=== PATIENT | male | born 1940 | race Caucasian/White ===

== ENCOUNTER 2019-02-02 18:44 | Inpatient (IN) | payer MEDICARE ==
[2019-02-02] MEDS ORDERED: SODIUM CHLORIDE 0.9% 1,000 ML IV STA (19:09)
[2019-02-02] MEDS ORDERED: FUROSEMIDE 10 MG/ML 4 ML VIAL IV STA (19:10)
[2019-02-02] MEDS ORDERED: IPRATROPIUM-ALBUTEROL 3 ML NEB INHALATION STA ×2 (19:10→20:53)
--- NOTE | 2019-02-02 19:12 | ED ---
General Adult HPI - General Chief complaint: Shortness of Breath Stated complaint: ELIU Time Seen by Provider: 02/02/19 18:56 Source: EMS, RN notes reviewed, old records reviewed Limitations: physical limitation - History of Present Illness Initial comments: Patient is a 78-year-old male who presents emergency department today worsening dyspnea for the past 2 days. He states he's had some lower extremity swelling. He states is difficult for him to lay down completely. He reports that he is currently on budesonide, takes multiple breathing treatments a day. His marketing strategy lead is Dr. Garay. 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 Patient states that he has not been taking his Lasix regularly as it does cause him To urinate more frequently. Patient states that he has had some worsening coughing. He denies any associated chest pain. Ignacio nt reports that he does wear 2 L of oxygen all times. - Related Data Allergies Allergy/AdvReac Type Severity Reaction Status Date / Time No Known Allergies Allergy Verified 02/02/19 18:57 Review of Systems ROS Statement: Those systems with pertinent positive or pertinent negative responses have been documented in the HPI. ROS Other: All systems not noted in ROS Statement are negative. Past Medical History Past Medical History: Coronary Artery Disease (CAD), COPD, Hypertension Additional Past Medical History / Comment(s): chf History of Any Multi-Drug Resistant Organisms: None Reported Past Surgical History: No Surgical Hx Reported Past Psychological History: No Psychological Hx Reported Smoking Status: Former smoker Past Alcohol Use History: None Reported Past Drug Use History: None Reported General Exam - General Exam Comments Initial Comments: This is a 70-year-old male. Alert and oriented. No significant distress. Limitations: physical limitation General appearance: alert, in no apparent distress Head exam: Present: atraumatic, normocephalic, normal inspection Eye exam: Present: normal appearance, PERRL, EOMI. Absent: scleral icterus, conjunctival injection, periorbital swelling ENT exam: Present: normal exam, normal oropharynx, mucous membranes moist Neck exam: Present: normal inspection. Absent: tenderness, meningismus, lymphadenopathy Respiratory exam: Present: wheezes, decreased breath sounds, other (Decreased lung sounds bilaterally.). Absent: normal lung sounds bilaterally, respiratory distress, rales, rhonchi, stridor Cardiovascular Exam: Present: regular rate, normal rhythm, normal heart sounds. Absent: systolic murmur, diastolic murmur, rubs, gallop, clicks GI/Abdominal exam: Present: soft, normal bowel sounds. Absent: distended, tenderness, guarding, rebound, rigid Extremities exam: Present: normal inspection, full ROM, normal capillary refill. Absent: tenderness, pedal edema, joint swelling, calf tenderness Back exam: Present: normal inspection Neurological exam: Present: alert, oriented X3, CN II-XII intact Psychiatric exam: Present: normal affect, normal mood Course Vital Signs 02/02/19 02/02/19 02/02/19 18:47 20:21 20:27 Pulse Rate 90 95 89 Respiratory 20 Rate Blood Pressure 150/76 O2 Sat by Pulse 98 Oximetry 02/02/19 21:33 Pulse Rate 103 H Respiratory Rate Blood Pressure O2 Sat by Pulse Oximetry - Reevaluation(s) Reevaluation #1: 02/02/19 21:40 After initial breathing treatment patient's has decreased lung sounds but it continues to have wheezing. EKG Findings - EKG Comments: EKG Findings:: EKG shows sinus tachycardia, frequent and consecutive PVCs. Nonspecific ST and normality. Abnormal EKG. Ventricular rate of 101. Pulse 122. Respirations 86 segs. QT QTc is 372/4 and she most seconds. Medical Decision Making - Medical Decision Making This is a 70-year-old male with history of COPD. He presents with worsening shortness of breath for the past 2 days. Patient had significant wheezing on exam diminished lung sounds. Given a neb treatment, as well as IV site Medrol via EMS. Patient at this time has given subsequent treatment, does have increased lung sounds continues to have wheezing. He was given Lasix due to bilateral lower extremity edema. Troponin and BNP are relatively unremarkable. Chest x-ray shows evidence of COPD. Patient does see Dr. Garay. I discussed that he would like to give the Patient further breathing treatments and made him for worsening shortness of breath with COPD exacerbation. will admit the Patient this time after I discussed case with Dr. dela cruz\. He discussed case with Dr. ELLISON. - Lab Data Result diagrams: 02/02/19 19:00 02/02/19 19:00 Lab Results 02/02/19 02/02/19 02/02/19 Range/Units 19:00 19:00 19:00 WBC 5.3 (3.8-10.6) k/uL RBC 4.60 (4.30-5.90) m/uL Hgb 13.8 (13.0-17.5) gm/dL Hct 43.9 (39.0-53.0) % MCV 95.5 (80.0-100.0) fL MCH 30.0 (25.0-35.0) pg MCHC 31.5 (31.0-37.0) g/dL RDW 14.2 (11.5-15.5) % Plt Count 175 (150-450) k/uL Neutrophils % 70 % Lymphocytes % 17 % Monocytes % 8 % Eosinophils % 2 % Basophils % 1 % Neutrophils # 3.7 (1.3-7.7) k/uL Lymphocytes # 0.9 L (1.0-4.8) k/uL Monocytes # 0.4 (0-1.0) k/uL Eosinophils # 0.1 (0-0.7) k/uL Basophils # 0.0 (0-0.2) k/uL Hypochromasia Slight PT (9.0-12.0) sec INR (<1.2) APTT (22.0-30.0) sec Sodium 143 (137-145) mmol/L Potassium 4.5 (3.5-5.1) mmol/L Chloride 93 L (98-107) mmol/L Carbon Dioxide 45 H* (22-30) mmol/L Anion Gap 5 mmol/L BUN 20 (9-20) mg/dL Creatinine 0.45 L (0.66-1.25) mg/dL Est GFR (CKD-EPI)AfAm >90 (>60 ml/min/1.73 sqM) Est GFR (CKD-EPI)NonAf >90 (>60 ml/min/1.73 sqM) Glucose 115 H (74-99) mg/dL Calcium 8.8 (8.4-10.2) mg/dL Magnesium 1.9 (1.6-2.3) mg/dL Total Bilirubin 0.9 (0.2-1.3) mg/dL AST 31 (17-59) U/L ALT 36 (21-72) U/L Alkaline Phosphatase 91 (38-126) U/L Troponin I (0.000-0.034) ng/mL NT-Pro-B Natriuret Pep 304 pg/mL Total Protein 6.9 (6.3-8.2) g/dL Albumin 4.1 (3.5-5.0) g/dL Urine Color Urine Appearance (Clear) Urine pH (5.0-8.0) Ur Specific [place] (1.001-1.035) Urine Protein (Negative) Urine Glucose (UA) (Negative) Urine Ketones (Negative) Urine Blood (Negative) Urine Nitrite (Negative) Urine Bilirubin (Negative) Urine Urobilinogen (<2.0) mg/dL Ur Leukocyte Esterase (Negative) 02/02/19 02/02/19 02/02/19 Range/Units 19:00 19:00 20:50 WBC (3.8-10.6) k/uL RBC (4.30-5.90) m/uL Hgb (13.0-17.5) gm/dL Hct (39.0-53.0) % MCV (80.0-100.0) fL MCH (25.0-35.0) pg MCHC (31.0-37.0) g/dL RDW (11.5-15.5) % Plt Count (150-450) k/uL Neutrophils % % Lymphocytes % % Monocytes % % Eosinophils % % Basophils % % Neutrophils # (1.3-7.7) k/uL Lymphocytes # (1.0-4.8) k/uL Monocytes # (0-1.0) k/uL Eosinophils # (0-0.7) k/uL Basophils # (0-0.2) k/uL Hypochromasia PT 9.8 (9.0-12.0) sec INR 0.9 (<1.2) APTT 24.8 (22.0-30.0) sec Sodium (137-145) mmol/L Potassium (3.5-5.1) mmol/L Chloride (98-107) mmol/L Carbon Dioxide (22-30) mmol/L Anion Gap mmol/L BUN (9-20) mg/dL Creatinine (0.66-1.25) mg/dL Est GFR (CKD-EPI)AfAm (>60 ml/min/1.73 sqM) Est GFR (CKD-EPI)NonAf (>60 ml/min/1.73 sqM) Glucose (74-99) mg/dL Calcium (8.4-10.2) mg/dL Magnesium (1.6-2.3) mg/dL Total Bilirubin (0.2-1.3) mg/dL AST (17-59) U/L ALT (21-72) U/L Alkaline Phosphatase (38-126) U/L Troponin I <0.012 (0.000-0.034) ng/mL NT-Pro-B Natriuret Pep pg/mL Total Protein (6.3-8.2) g/dL Albumin (3.5-5.0) g/dL Urine Color Yellow Urine Appearance Clear (Clear) Urine pH 5.5 (5.0-8.0) Ur Specific [place] 1.013 (1.001-1.035) Urine Protein Trace H (Negative) Urine Glucose (UA) Negative (Negative) Urine Ketones 2+ H (Negative) Urine Blood Negative (Negative) Urine Nitrite Negative (Negative) Urine Bilirubin Negative (Negative) Urine Urobilinogen <2.0 (<2.0) mg/dL Ur Leukocyte Esterase Negative (Negative) - Radiology Data Radiology results: report reviewed Chest x-ray shows evidence of COPD. Disposition Clinical Impression: COPD exacerbation Disposition: [facility] Condition: Stable Is patient prescribed a controlled substance at d/c from ED?: No Referrals: Nonstaff,Physician [REFERRING] - 1-2 days Time of Disposition: 21:42
[2019-02-02 19:23] LABS: Basophils % (A) 1 %; Eosinophils # (A) 0.1 k/uL (0-0.7); Eosinophils % (A) 2 %; HCT 43.9 % (39.0-53.0); HGB 13.8 gm/dL (13.0-17.5); Hypochromasia Slight; Lymphocytes # (A) 0.9 k/uL (1.0-4.8); Lymphocytes % (A) 17 %; MCHC 31.5 g/dL (31.0-37.0); MCV 95.5 fL (80.0-100.0); Mean Platelet Volume 8.2; Monocytes # (A) 0.4 k/uL (0-1.0); Monocytes % (A) 8 %; Neutrophils # (A) 3.7 k/uL (1.3-7.7); Neutrophils % (A) 70 %; Platelet Count 175 k/uL (150-450); RDW 14.2 % (11.5-15.5); WBC 5.3 k/uL (3.8-10.6)
[2019-02-02 19:31] LABS: ALT 36 U/L (21-72); AST 31 U/L (17-59); African American GFR (CKD) >90 (>60 ml/min/1.73 sqM); Albumin 4.1 g/dL (3.5-5.0); Alkaline Phosphatase 91 U/L (38-126); Blood Urea Nitrogen 20 mg/dL (9-20); Calcium 8.8 mg/dL (8.4-10.2); Chloride 93 mmol/L (98-107); Glucose 115 mg/dL (74-99); Magnesium 1.9 mg/dL (1.6-2.3); Potassium 4.5 mmol/L (3.5-5.1); Sodium 143 mmol/L (137-145); Total Bilirubin 0.9 mg/dL (0.2-1.3); Total Protein 6.9 g/dL (6.3-8.2)
[2019-02-02 19:34] LABS: INR 0.9 (<1.2); Partial Thromboplastin Time 24.8 sec (22.0-30.0); Prothrombin Time 9.8 sec (9.0-12.0)
[2019-02-02 19:37] LABS: Anion Gap 5 mmol/L
[2019-02-02 19:41] LABS: Carbon Dioxide 45 mmol/L (22-30)
[2019-02-02] MEDS ORDERED: methylPREDNISolone SOD SUCCI 125 MG/2 ML VIAL IV STA (20:09)
--- NOTE | 2019-02-02 20:49 | XR ---
EXAMINATION TYPE: XR chest 2V DATE OF EXAM: 02/02/2019 COMPARISON: None INDICATION: Chest pain TECHNIQUE: Frontal and lateral views of the chest are obtained. FINDINGS: The heart size is normal. The pulmonary vasculature is normal. The lungs are clear. Hyperinflation flattening the diaphragms compatible COPD. IMPRESSION: 1. COPD
[2019-02-02] MEDS ORDERED: ALBUTEROL NEBULIZED 2.5 MG/3 ML INHALATION STA (20:53)
[2019-02-02 21:05] LABS: Appearance,Urine Clear (Clear); Bilirubin,Urine Negative (Negative); Blood,Urine Negative (Negative); Color,Urine Yellow; Glucose,Urine (UA) Negative (Negative); Ketones,Urine 2+ (Negative); Leukocyte Esterase,Urine Negative (Negative); Nitrite,Urine Negative (Negative); PH, Urine 5.5 (5.0-8.0); Protein,Urine Trace (Negative); Specific Gravity,Urine 1.013 (1.001-1.035); Urobilinogen,Urine <2.0 mg/dL (<2.0)
[2019-02-02] MEDS ORDERED: IPRATROPIUM-ALBUTEROL 3 ML NEB INHALATION PRN (21:42)
--- NOTE | 2019-02-02 22:05 | P.HPIM ---
History of Present Illness H&P Date: 02/02/19 The patient is a 78 yo M w/ a PMH of COPD, HTN, CHF (unspecified type), and chronic hypoxic resp failure on continuous 2L home oxygen presented to the ED for 3 days of gradually worsening SOB. Patient reports compliance with his nebulizer treatments at home with continued shortness of breath. He endorsed some LE edema due to non-compliance with his lasix. He also endorsed some orthopnea, denied PND. Endorsed mild clear cough. Denied chest pain, nausea, vomiting. Denied abdominal pain, fever, chills, or diarrhea. Denied sore throat. He underwent an extensive evaluation in the ED w/ CXR consistent with COPD. EKG revealed sinus tachycardia at 101 bpm with PVCs. Laboratory evaluation revealed WBC 5.3, Hgb 13.8, platelets 175, CO2 45, BUN 20, Cr 0.45, Troponin < 0.012, and BNP 304. The patient is admitted for further management of acute COPD exacerbation. Review of Systems Pertinent positives and negatives as discussed in HPI, a complete review of systems was performed and all other systems are negative. Past Medical History Past Medical History: Coronary Artery Disease (CAD), COPD, Hypertension Additional Past Medical History / Comment(s): chf History of Any Multi-Drug Resistant Organisms: None Reported Past Surgical History: No Surgical Hx Reported Past Psychological History: No Psychological Hx Reported Smoking Status: Former smoker Past Alcohol Use History: None Reported Past Drug Use History: None Reported - Past Family History Father Family Medical History: Coronary Artery Disease (CAD) Medications and Allergies Home Medications Medication Instructions Recorded Confirmed Type Albuterol/Ipratropium 02/02/19 History Budesonide 02/02/19 History Lasix 02/02/19 History Allergies Allergy/AdvReac Type Severity Reaction Status Date / Time bacitracin Allergy Unknown Verified 02/02/19 21:44 [From Neosporin ([id number])] neomycin Allergy Unknown Verified 02/02/19 21:44 [From Neosporin ([id number])] polymyxin B Allergy Unknown Verified 02/02/19 21:44 [From Neosporin ([id number])] Physical Exam Vitals: Vital Signs Pulse Resp BP Pulse Ox 02/02/19 21:33 103 H 02/02/19 21:20 104 H 24 163/82 96 02/02/19 20:27 89 02/02/19 20:21 95 02/02/19 20:00 98 20 181/82 96 02/02/19 18:49 99 02/02/19 18:47 90 20 150/76 98 Intake and Output 02/02/19 02/02/19 02/02/19 06:59 14:59 22:59 Other: Weight 95.254 kg General: non toxic, no distress, appears at stated age, normal weight Derm: no unusual rashes/lesions no unusual ecchymoses, warm, dry Head: atraumatic, normocephalic, symmetric Eyes: EOMI, no lid lag, anicteric sclera, pupils equal round reactive to light ENT: Nose and ears atraumatic, no thrush, no pharyngeal erythema Neck: No thyromegaly, no cervical lymphadenopathy, trachea midline, supple Mouth: no lip lesion, mucus membranes moist Cardiovascular: S1S2 reg, no murmur, positive posterior tibial pulse bilateral, no edema, capillary refill less than 2 seconds Lungs: Decreased air entry ridge w/ expiratory wheezing, no rhonchi, no rales , no accessory muscle use Abdominal: soft, nontender to palpation, no guarding, no appreciable organomegaly, normal bowel sounds Ext: no gross muscle atrophy, muscle strength 5 out of 5 in all 4 extremities grossly, no contractures, Neuro: CN II-XI grossly intact, light touch intact all 4 extremities, finger to nose within normal limits, Psych: Alert, oriented, appropriate affect Results CBC & Chem 7: 02/02/19 19:00 02/02/19 19:00 Labs: Abnormal Lab Results - Last 24 Hours (Table) 02/02/19 02/02/19 02/02/19 Range/Units 19:00 19:00 20:50 Lymphocytes # 0.9 L (1.0-4.8) k/uL Chloride 93 L (98-107) mmol/L Carbon Dioxide 45 H* (22-30) mmol/L Creatinine 0.45 L (0.66-1.25) mg/dL Glucose 115 H (74-99) mg/dL Urine Protein Trace H (Negative) Urine Ketones 2+ H (Negative) Assessment and Plan Plan: Acute COPD exacerbation -C/w Duonebs, Solumedrol, Azithromycin, Pulmicort -C/w supplemental oxygen Elevated bicarbonate, possibly due to respiratory acidosis -Obtain ABG HTN, CHF -Obtain comprehensive med-list from pharmacy and subsequently resume DVT prophylaxis -Lovenox The patient is admitted with an anticipated less than 2 midnight stay for evaluation of acute COPD exacerbation. CODE STATUS:No Code Discussed with: Patient Anticipated discharge date: 02/04/[address]: Home A total of 40 minutes was spent on the care of this complex patient more than 50% of the time was spent in counseling and care coordination.
[2019-02-02 22:55] LABS: ABG Base Excess 22.7 mmol/L; ABG PH 7.29 (7.35-7.45); ABG PO2 74 mmHg (83-108); ABG TCO2 52 mmol/L (19-24); Allen Test Performed? Yes
[2019-02-02 23:24] LABS: ABG HCO3 49 mmol/L (21-25); ABG PCO2 102 mmHg (35-45)
[2019-02-03] MEDS: methylPREDNISolone SOD SUCCI 125 MG/2 ML VIAL IV SCH ×4 (00:24→18:18)
[2019-02-03 06:17] LABS: Glucose,Whole Blood 170 mg/dL (75-99)
[2019-02-03] MEDS: INSULIN ASPART (NovoLOG) 100 UNIT/ML VIAL SQ SCH ×4 (06:17→20:33)
--- NOTE | 2019-02-03 07:05 | P.CNPUL ---
History of Present Illness Consult date: 02/03/19 Reason for consult: dyspnea, cough Chief complaint: Shortness of breath and cough History of present illness: 78-year-old male who was seen evaluated examined while covering for Dr. 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 he is nebulizer dependent and oxygen dependent, he had the in his left elbow some of the olecranin bursitis on which lasted for one to 2 days and sub sequently resolved then Monday or Monday started having cough congestion shortness of breath comes to a point sided to come into the hospital for shortness of breath chest pain cough swelling in the left elbow is resolved now he does not have any pain has been advised to see orthopedics doctor as outpatient, patient has chronic lower extremity edema used to take Lasix intermittently Review of Systems All systems: negative Past Medical History Past Medical History: Coronary Artery Disease (CAD), COPD, Hypertension Additional Past Medical History / Comment(s): chf History of Any Multi-Drug Resistant Organisms: None Reported Past Surgical History: No Surgical Hx Reported Smoking Status: Former smoker - Past Family History Father Family Medical History: Coronary Artery Disease (CAD) Medications and Allergies Home Medications Medication Instructions Recorded Confirmed Type Albuterol/Ipratropium 02/02/19 History Budesonide 02/02/19 History Lasix 02/02/19 History Allergies Allergy/AdvReac Type Severity Reaction Status Date / Time bacitracin Allergy Unknown Verified 02/02/19 21:44 [From Neosporin ([id number])] neomycin Allergy Unknown Verified 02/02/19 21:44 [From Neosporin ([id number])] polymyxin B Allergy Unknown Verified 02/02/19 21:44 [From Neosporin ([id number])] Physical Exam Vitals: Vital Signs Temp Pulse Pulse Resp BP BP Pulse Ox 02/03/19 06:19 98 F 92 18 128/70 93 L 02/03/19 03:04 98.2 F 98 18 132/72 93 L 02/02/19 23:56 98.5 F 115 H 20 140/71 92 L 02/02/19 22:02 110 H 02/02/19 21:58 98.1 F 02/02/19 21:33 103 H 02/02/19 21:20 104 H 24 163/82 96 02/02/19 20:27 89 02/02/19 20:21 95 02/02/19 20:00 98 20 181/82 96 02/02/19 18:49 99 02/02/19 18:47 90 20 150/76 98 Intake and Output 02/02/19 02/02/19 02/03/19 14:59 22:59 06:59 Intake Total 100 Output Total 300 Balance -200 Intake: Amount of Fluid Infused ( 100 ml) Output: Urine 300 Other: # Voids 1 Weight 95.254 kg - Constitutional General appearance: average body habitus, cooperative, disheveled, mild distress - EENT Eyes: anicteric sclerae, EOMI, PERRLA, poor dentition, normal appearance ENT: normal oropharynx Ears: bilateral: normal - Neck Neck: normal ROM Carotids: bilateral: upstroke normal, bruit absent Thyroid: bilateral: normal size - Respiratory Respiratory: bilateral: diminished, negative: dullness, rales, rhonchi, wheezing (Fine inspiratory and expiratory) - Cardiovascular Rhythm: regular Heart sounds: normal: S1, S2 - Gastrointestinal General gastrointestinal: normal bowel sounds, soft - Neurologic Neurologic: CNII-XII intact - Musculoskeletal Musculoskeletal: gait normal, generalized weakness, strength equal bilaterally - Psychiatric Psychiatric: A&O x's 3, appropriate affect, intact judgment & insight Results - Laboratory Findings CBC and BMP: 02/02/19 19:00 02/02/19 19:00 ABG ABG pH 7.29 (7.35-7.45) L 02/02/19 22:50 ABG pCO2 102 mmHg (35-45) H* 02/02/19 22:50 ABG pO2 74 mmHg (83-108) L 02/02/19 22:50 ABG O2 Saturation 95.0 % (94-97) 02/02/19 22:50 PT/INR, D-dimer PT 9.8 sec (9.0-12.0) 02/02/19 19:00 INR 0.9 (<1.2) 02/02/19 19:00 Abnormal lab findings: Abnormal Labs 02/02/19 02/02/19 02/02/19 19:00 19:00 20:50 Lymphocytes # 0.9 L ABG pH ABG pCO2 ABG pO2 ABG HCO3 ABG Total CO2 Chloride 93 L Carbon Dioxide 45 H* Creatinine 0.45 L Glucose 115 H POC Glucose (mg/dL) Urine Protein Trace H Urine Ketones 2+ H 02/02/19 02/03/19 22:50 06:13 Lymphocytes # ABG pH 7.29 L ABG pCO2 102 H* ABG pO2 74 L ABG HCO3 49 H* ABG Total CO2 52 H Chloride Carbon Dioxide Creatinine Glucose POC Glucose (mg/dL) 170 H Urine Protein Urine Ketones - Diagnostic Findings Chest x-ray: report reviewed, image reviewed (COPD-like changes) Assessment and Plan Assessment: Acute COPD exacerbation Chronic hypoxic and hypercapnic respiratory failure, suspect elevated CO2 Tracheobronchitis Hypertension hypertensive cardiovascular disease Diastolic heart failure Olecranon bursitis Plan: IV steroids Breathing treatment By mouth antibiotics Supplemental oxygen BiPAP at nighttime Increase activity as tolerated DVT prophylaxis Further plan of care as per clinical response of the patient Time with Patient: Greater than 30
[2019-02-03] MEDS: AZITHROMYCIN 500 MG TAB PO SCH (08:43)
[2019-02-03] MEDS: ALBUTEROL NEBULIZED 2.5 MG/3 ML INHALATION SCH ×2 (08:55→12:13)
[2019-02-03] MEDS: BUDESONIDE 0.5 MG/2 ML NEBU INHALATION SCH ×2 (08:56→20:20)
--- NOTE | 2019-02-03 10:20 | P.PN ---
Subjective Progress Note Date: 02/03/19 Patient seen and examined at bedside has been up and ambulatory but has been very weak, reports to wearing 3 L via nasal cannula at baseline and was compliant with BiPAP overnight. Patient here with acute COPD exacerbation with chronic hypoxic and hypercapnic respiratory failure. Objective - Vital Signs Vital signs: Vital Signs Temp 97.9 F 02/03/19 08:00 Pulse 96 02/03/19 09:09 Resp 18 02/03/19 08:00 BP 122/58 02/03/19 08:00 Pulse Ox 92 L 02/03/19 08:59 Intake & Output 02/02/19 02/03/19 02/03/19 18:59 06:59 18:59 Intake Total 100 180 Output Total 300 Balance -200 180 Weight 95.254 kg Intake: Amount of Fluid Infused ( 100 ml) Oral 180 Output: Urine 300 Other: # Voids 1 - Exam Constitutional: No acute distress, conversant, pleasant Eyes: Anicteric sclerae, moist conjunctiva, no lid-lag, PERRLA ENMT: NC/AT,Oropharynx clear, no erythema, exudates Neck:Supple, FROM, no masses, or JVD, No carotid bruits; No thyromegaly Lungs: Diminished in the bases with fine biphasic wheezes Cardiovascular: Heart regular in rate and rhythm, No murmurs, gallops, or rubs no peripheral edema Abdominal: Soft Nontender, nom distended, no guarding, no rebound or rigidity, Normoactive bowel sounds No hepatomegaly, No splenomegaly, No palpable mass No abdominal wall hernia noted Skin: Normal temperature, tone, texture, turgor, No induration No subcutaneous nodules, No rash, lesions, No ulcers Extremities:No digital cyanosis No clubbing, Pedal pulses intact and symmetrical Radial pulses intact and symmetrical Normal gait and station, No calf tenderness Psychiatric: Alert and oriented to person, place and time, Appropriate affect Intact judgement Neuro: Muscles Strength 5/5 in all 4 extremities, Sensation to light touch grossly present throughout, Cranial nerves II-XII grossly intact. No focal s ensory deficits - Labs CBC & Chem 7: 02/02/19 19:00 02/02/19 19:00 Labs: Abnormal Lab Results - Last 24 Hours (Table) 02/02/19 02/02/19 02/02/19 Range/Units 19:00 19:00 20:50 Lymphocytes # 0.9 L (1.0-4.8) k/uL ABG pH (7.35-7.45) ABG pCO2 (35-45) mmHg ABG pO2 (83-108) mmHg ABG HCO3 (21-25) mmol/L ABG Total CO2 (19-24) mmol/L Chloride 93 L (98-107) mmol/L Carbon Dioxide 45 H* (22-30) mmol/L Creatinine 0.45 L (0.66-1.25) mg/dL Glucose 115 H (74-99) mg/dL POC Glucose (mg/dL) (75-99) mg/dL Urine Protein Trace H (Negative) Urine Ketones 2+ H (Negative) 02/02/19 02/03/19 Range/Units 22:50 06:13 Lymphocytes # (1.0-4.8) k/uL ABG pH 7.29 L (7.35-7.45) ABG pCO2 102 H* (35-45) mmHg ABG pO2 74 L (83-108) mmHg ABG HCO3 49 H* (21-25) mmol/L ABG Total CO2 52 H (19-24) mmol/L Chloride (98-107) mmol/L Carbon Dioxide (22-30) mmol/L Creatinine (0.66-1.25) mg/dL Glucose (74-99) mg/dL POC Glucose (mg/dL) 170 H (75-99) mg/dL Urine Protein (Negative) Urine Ketones (Negative) Assessment and Plan (1) COPD exacerbation Narrative/Plan: * Continue breathing treatments, systemic steroids with Solu-Medrol * Continue empiric antibiotics with azithromycin and Rocephin appreciate pulmonary recommendations * Current Visit: Yes Status: Acute Code(s): J44.1 - CHRONIC OBSTRUCTIVE PULMONARY DISEASE W (ACUTE) EXACERBATION SNOMED Code(s): 699625049 (2) Chronic respiratory failure with hypoxia and hypercapnia Narrative/Plan: * patient with end-stage COPD emphysema * Continue BiPAP at night * Appreciate pulmonary recommendations Current Visit: Yes Status: Acute Code(s): J96.11 - CHRONIC RESPIRATORY FAILURE WITH HYPOXIA; J96.12 - CHRONIC RESPIRATORY FAILURE WITH HYPERCAPNIA SNOMED Code(s): 32095678 (3) Essential hypertension Narrative/Plan: * Blood pressure stable controlled continue current regimen Current Visit: Yes Status: Chronic Code(s): I10 - ESSENTIAL (PRIMARY) HYPERTENSION SNOMED Code(s): 30068166 (4) Chronic diastolic CHF (congestive heart failure) Narrative/Plan: * Stable clinically euvolemic without any acute exacerbation or decompensation Current Visit: Yes Status: Chronic Code(s): I50.32 - CHRONIC DIASTOLIC (CONGESTIVE) HEART FAILURE SNOMED Code(s): 565592600 Plan: * Disposition continue current management * Anticipated discharge 1-2 days
[2019-02-03] MEDS: IPRATROPIUM-ALBUTEROL 3 ML NEB INHALATION SCH ×2 (15:56→20:21)
[2019-02-03 16:53] LABS: Glucose,Whole Blood 144 mg/dL (75-99)
[2019-02-03 20:20] LABS: Glucose,Whole Blood 156 mg/dL (75-99)
[2019-02-04] MEDS: methylPREDNISolone SOD SUCCI 125 MG/2 ML VIAL IV SCH ×5 (00:47→23:16)
[2019-02-04 07:27] LABS: Glucose,Whole Blood 135 mg/dL (75-99)
[2019-02-04] MEDS: BUDESONIDE 0.5 MG/2 ML NEBU INHALATION SCH ×2 (08:54→19:14)
[2019-02-04] MEDS: IPRATROPIUM-ALBUTEROL 3 ML NEB INHALATION SCH ×4 (08:54→19:14)
[2019-02-04] MEDS: AZITHROMYCIN 500 MG TAB PO SCH (09:01)
[2019-02-04] MEDS: INSULIN ASPART (NovoLOG) 100 UNIT/ML VIAL SQ SCH ×4 (09:01→21:48)
[2019-02-04 11:23] LABS: Glucose,Whole Blood 130 mg/dL (75-99)
--- NOTE | 2019-02-04 14:36 | P.PN ---
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, respiratory acidosis acute on chronic 02/04/2019, patient seen and evaluated examined during the rounds he is more awake now he had the excellent response to BiPAP he is able to complete full sentences less short of breath denies any cough or sputum production labs rev iewed medications reviewed patient has acute on chronic respiratory acidosis high serum CO2 is indicated above for chronic process, patient may be a candidate for noninvasive ventilation will arrange for Trilogy ventilator 78-year-old male who was seen evaluated examined this patient had 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 he is nebulizer dependent and oxygen dependent, he had the in his left elbow some of the olecranin bursitis on which lasted for one to 2 days and subsequently resolved then Monday or Monday started having cough congestion shortness of breath comes to a point sided to come into the hospital for shortness of breath chest pain cough swelling in the left elbow is resolved now he does not have any pain has been advised to see orthopedics doctor as outpatient, patient has chronic lower extremity edema used to take Lasix intermittently Objective - Vital Signs Vital signs: Vital Signs Temp 97.8 F 02/04/19 13:11 Pulse 104 H 02/04/19 13:11 Resp 18 02/04/19 13:11 BP 137/63 02/04/19 13:11 Pulse Ox 98 02/04/19 13:11 Intake & Output 02/03/19 02/04/19 02/04/19 18:59 06:59 18:59 Intake Total 402 890 Output Total 600 550 300 Balance -198 -550 590 Intake: Oral 402 890 Output: Urine 600 550 300 Other: # Voids 2 3 - Exam - Constitutional General appearance: average body habitus, cooperative, disheveled, mild distress - EENT Eyes: anicteric sclerae, EOMI, PERRLA, poor dentition, normal appearance ENT: normal oropharynx Ears: bilateral: normal - Neck Neck: normal ROM Carotids: bilateral: upstroke normal, bruit absent Thyroid: bilateral: normal size - Respiratory Respiratory: bilateral: diminished, negative: dullness, rales, rhonchi, wheezing (Fine inspiratory and expiratory) - Cardiovascular Rhythm: regular Heart sounds: normal: S1, S2 - Gastrointestinal General gastrointestinal: normal bowel sounds, soft - Neurologic Neurologic: CNII-XII intact - Musculoskeletal Musculoskeletal: gait normal, generalized weakness, strength equal bilaterally - Psychiatric Psychiatric: A&O x's 3, appropriate affect, intact judgment & insight - Labs CBC & Chem 7: 02/02/19 19:00 02/02/19 19:00 Labs: Abnormal Lab Results - Last 24 Hours (Table) 02/03/19 02/03/19 02/04/19 Range/Units 16:50 20:19 07:20 POC Glucose (mg/dL) 144 H 156 H 135 H (75-99) mg/dL 02/04/19 Range/Units 11:13 POC Glucose (mg/dL) 130 H (75-99) mg/dL Microbiology - Last 24 Hours (Table) 02/03/19 00:08 Blood Culture - Preliminary Blood No Growth after 24 hours 02/02/19 23:10 Blood Culture - Preliminary Blood No Growth after 24 hours Assessment and Plan Assessment: Acute COPD exacerbation Chronic hypoxic and hypercapnic respiratory failure, suspect elevated CO2 Severe baseline COPD Chronic respiratory failure Tracheobronchitis Hypertension hypertensive cardiovascular disease Diastolic heart failure Olecranon bursitis Plan: IV steroids Breathing treatment By mouth antibiotics Supplemental oxygen BiPAP at nighttime Increase activity as tolerated Arrange noninvasive ventilation with Trilogy ventilator DVT prophylaxis Further plan of care as per clinical response of the patient Time with Patient: Greater than 30
[2019-02-04 17:29] LABS: Glucose,Whole Blood 116 mg/dL (75-99)
--- NOTE | 2019-02-04 18:48 | P.PN ---
Subjective Progress Note Date: 02/04/19 Principal diagnosis: COPD exacerbation Patient was seen and examined. No acute events overnight. Patient reports considerable improvement in his breathing since admission. States that he has some sort of study today for [employer]. He denies any chest pain or palpitations. No nausea or vomiting. No fever or chills. Not quite back to baseline yet. Objective - Vital Signs Vital signs: Vital Signs Temp 97.8 F 02/04/19 13:11 Pulse 100 02/04/19 15:45 Resp 18 02/04/19 15:13 BP 137/63 02/04/19 13:11 Pulse Ox 98 02/04/19 13:11 Intake & Output 02/03/19 02/04/19 02/04/19 18:59 06:59 18:59 Intake Total 402 1190 Output Total 600 550 600 Balance -198 -550 590 Intake: Oral 402 1190 Output: Urine 600 550 600 Other: # Voids 2 3 - Exam General: [non toxic], [no distress], [appears at stated age] Derm: [warm], [dry] Head: [atraumatic], [normocephalic], [symmetric] Eyes: [EOMI], [no lid lag], [anicteric sclera] Mouth: [no lip lesion], [mucus membranes moist] Cardiovascular: [S1S2 reg], [no murmur], [positive posterior tibial pulse bilateral], Lungs: [Decreased breath sounds bilateral], [no rhonchi, no rales] , [no accessory muscle use] Abdominal: [soft], [ nontender to palpation], [no guarding], [no appreciable organomegaly] Ext: [no gross muscle atrophy], [no edema], [no contractures] Neuro: [ CN II-XI grossly intact], [no focal neuro deficits] Psych: [Alert], [oriented], [appropriate affect] - Labs CBC & Chem 7: 02/02/19 19:00 02/02/19 19:00 Labs: Abnormal Lab Results - Last 24 Hours (Table) 02/03/19 02/04/19 02/04/19 Range/Units 20:19 07:20 11:13 POC Glucose (mg/dL) 156 H 135 H 130 H (75-99) mg/dL 07/15/19 Range/Units 17:28 POC Glucose (mg/dL) 116 H (75-99) mg/dL Microbiology - Last 24 Hours (Table) 02/03/19 00:08 Blood Culture - Preliminary Blood No Growth after 24 hours 02/02/19 23:10 Blood Culture - Preliminary Blood No Growth after 24 hours Assessment and Plan Assessment: COPD exacerbation Acute on chronic respiratory failure with hypoxia and hypercapnia Hypertension Diastolic CHF Plans: DuoNeb as needed for shortness of breath or wheezing. Continue Solu- Medrol. Continue Pulmicort. Azithromycin for concerns of acute bronchitis. Follow pulmonology recommendations. Plans: Possible titration study? Today in house for [facility]. Follow pulmonology recommendations. Management as above. On 2 L home O2. BP 137/63. Plans: Monitor vitals, adjust medications as necessary. Euvolemic. Plans: Monitor. Likely DC in 1-2 days. He is pending clinical improvement.
[2019-02-04 21:29] LABS: Glucose,Whole Blood 131 mg/dL (75-99)
[2019-02-05] MEDS: methylPREDNISolone SOD SUCCI 125 MG/2 ML VIAL IV SCH ×4 (05:26→23:43)
[2019-02-05] MEDS: INSULIN ASPART (NovoLOG) 100 UNIT/ML VIAL SQ SCH ×4 (07:34→21:30)
[2019-02-05 07:35] LABS: Glucose,Whole Blood 110 mg/dL (75-99)
[2019-02-05] MEDS: AZITHROMYCIN 500 MG TAB PO SCH (07:57)
[2019-02-05] MEDS: IPRATROPIUM-ALBUTEROL 3 ML NEB INHALATION SCH ×4 (08:45→20:11)
[2019-02-05] MEDS: BUDESONIDE 0.5 MG/2 ML NEBU INHALATION SCH ×2 (08:45→20:11)
[2019-02-05 10:47] LABS: Basophils % (A) 0 %; Eosinophils % (A) 0 %; HCT 41.3 % (39.0-53.0); HGB 12.8 gm/dL (13.0-17.5); Hypochromasia Slight; Lymphocytes # (A) 0.4 k/uL (1.0-4.8); Lymphocytes % (A) 5 %; MCH 29.8 pg (25.0-35.0); MCHC 31.1 g/dL (31.0-37.0); MCV 95.9 fL (80.0-100.0); Mean Platelet Volume 7.9; Monocytes # (A) 0.6 k/uL (0-1.0); Monocytes % (A) 9 %; Neutrophils # (A) 6.1 k/uL (1.3-7.7); Neutrophils % (A) 84 %; Platelet Count 206 k/uL (150-450); RDW 14.2 % (11.5-15.5); WBC 7.3 k/uL (3.8-10.6)
[2019-02-05 10:50] LABS: African American GFR (CKD) >90 (>60 ml/min/1.73 sqM); Blood Urea Nitrogen 28 mg/dL (9-20); Calcium 8.7 mg/dL (8.4-10.2); Chloride 91 mmol/L (98-107); Glucose 105 mg/dL (74-99); Potassium 4.9 mmol/L (3.5-5.1); Sodium 142 mmol/L (137-145)
[2019-02-05 11:03] LABS: Anion Gap 5 mmol/L
[2019-02-05 11:04] LABS: Carbon Dioxide 46 mmol/L (22-30)
[2019-02-05 11:35] LABS: Glucose,Whole Blood 104 mg/dL (75-99)
--- NOTE | 2019-02-05 11:56 | P.DS ---
Providers Date of admission: 02/02/19 21:37 Expected date of discharge: 02/05/19 Attending physician: Letha James MD Consults: 02/02/19 21:42 Consult Physician Stat Consulting Provider: Memo Escobar Consult Reason/Comments: COPD exacerbation Do you want consulting provider notified?: Yes, Notify in am Primary care physician: Stated None Hospital Course: The patient is a 78 yo M w/ a PMH of COPD, HTN, CHF (unspecified type), and chronic hypoxic resp failure on continuous 2L home oxygen presented to the ED for 3 days of gradually worsening SOB. Patient reports compliance with his nebulizer treatments at home with continued shortness of breath. He endorsed some LE edema due to non-compliance with his lasix. He also endorsed some orthopnea, denied PND. Endorsed mild clear cough. Denied chest pain, nausea, vomiting. Denied abdominal pain, fever, chills, or diarrhea. Denied sore throat. He underwent an extensive evaluation in the ED w/ CXR consistent with COPD. EKG revealed sinus tachycardia at 101 bpm with PVCs. Laboratory evaluation revealed WBC 5.3, Hgb 13.8, platelets 175, CO2 45, BUN 20, Cr 0.45, Troponin < 0.012, and BNP 304. The patient is admitted for further management of acute COPD exacerbation. With regard to his COPD exacerbation, patient was given DuoNeb as needed for shortness of breath or wheezing. He was continued on Solu-Medrol. He was continued on Pulmicort. He was given azithromycin by mouth for 3 days for concerns of acute bronchitis. Pulmonology was consulted and recommended Trilogy vent. Social work was consulted for obtaining Trilogy vent. Patient was seen and examined prior to discharge. No acute events overnight. Patient reports considerable improvement in his breathing, almost back to baseline. He denies any cough, chest pain. General: [non toxic], [no distress], [appears at stated age] Derm: [warm], [dry] Head: [atraumatic], [normocephalic], [symmetric] Eyes: [EOMI], [no lid lag], [anicteric sclera] Mouth: [no lip lesion], [mucus membranes moist] Cardiovascular: [S1S2 reg], [no murmur], [positive posterior tibial pulse bilateral], Lungs: [Decreased breath sounds bilateral], [no rhonchi, no rales] , [no accessory muscle use] Abdominal: [soft], [ nontender to palpation], [no guarding], [no appreciable organomegaly] Ext: [no gross muscle atrophy], [no edema], [no contractures] Neuro: [no focal neuro deficits] Psych: [Alert], [oriented], [appropriate affect] COPD exacerbation Acute on chronic respiratory failure with hypoxia and hypercapnia Hypertension Diastolic CHF Plans: DuoNeb as needed for shortness of breath or wheezing. Continue Solu- Medrol. Continue Pulmicort. Azithromycin for concerns of acute bronchitis. Follow pulmonology recommendations. Plans: We'll discuss with Dr. Escobar and social work regarding patient obtaining Trilogy vent. Follow pulmonology recommendations. Management as above. On 2 L home O2. BP 144/69. Plans: Monitor vitals, adjust medications as necessary. Euvolemic. Plans: Monitor. DC pending Pulmonology clearance. Pertinent Studies: Chest x-ray Patient Condition at Discharge: Stable Plan - Discharge Summary New Discharge Prescriptions: Continue Ipratropium-Albuterol Nebulize [Duoneb 0.5 mg-3 mg/3 ml Soln] 3 ml INHALATION QID Discharge Medication List Ipratropium-Albuterol Nebulize [Duoneb 0.5 mg-3 mg/3 ml Soln] 3 ml INHALATION QID 02/03/19 [History] Follow up Appointment(s)/Referral(s): Nonstaff,Physician [REFERRING] - 1-2 days Memo Escobar MD [STAFF PHYSICIAN] - 1 Week Activity/Diet/Wound Care/Special Instructions: PT WILL HAVE TRILOGY VENTILATOR AT HOME Follow-up PCP within 1-2 days of discharge. Follow-up pulmonology within 1 week of discharge. Please take all medications as advised. Discharge Disposition: HOME SELF-CARE
--- NOTE | 2019-02-05 13:49 | P.PN ---
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, respiratory acidosis acute on chronic 02/05/2019, patient seen and evaluated examined during the rounds he used the BiPAP machine almost 8 hours last night feels better denies any chest pain still of ongoing cough congestion shortness of breath severity has improved patient is being arranged for noninvasive ventilation with Trilogy Non invasive Ventilator 02/04/2019, patient seen and evaluated examined during the rounds he is more awake now he had the excellent response to BiPAP he is able to complete full sentences less short of breath denies any cough or sputum production labs reviewed medications reviewed patient has acute on chronic respiratory acidosis high serum CO2 is indicated above for chronic process, patient may be a candidate for noninvasive ventilation will arrange for Trilogy ventilator 78-year-old male who was seen evaluated examined this patient had 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 he is nebulizer dependent and oxygen dependent, he had the in his left elbow some of the olecranin bursitis on which lasted for one to 2 days and subsequently resolved then Monday or Monday started having cough congestion shortness of breath comes to a point sided to come into the hospital for shortness of breath chest pain cough swelling in the left elbow is resolved now he does not have any pain has been advised to see orthopedics doctor as outpatient, patient has chronic lower extremity edema used to take Lasix intermittently Objective - Vital Signs Vital signs: Vital Signs Temp 97.6 F 02/05/19 06:14 Pulse 92 02/05/19 11:48 Resp 17 02/05/19 06:14 BP 144/69 02/05/19 06:14 Pulse Ox 99 02/05/19 06:14 Intake & Output 02/04/19 02/05/19 02/05/19 18:59 06:59 18:59 Intake Total 1190 400 Output Total 600 125 Balance 590 275 Intake: Oral 1190 400 Output: Urine 600 125 Other: # Voids 3 1 - Exam - Constitutional General appearance: average body habitus, cooperative, disheveled, mild distress - EENT Eyes: anicteric sclerae, EOMI, PERRLA, poor dentition, normal appearance ENT: normal oropharynx Ears: bilateral: normal - Neck Neck: normal ROM Carotids: bilateral: upstroke normal, bruit absent Thyroid: bilateral: normal size - Respiratory Respiratory: bilateral: diminished, negative: dullness, rales, rhonchi, wheezing (Fine inspiratory and expiratory) - Cardiovascular Rhythm: regular Heart sounds: normal: S1, S2 - Gastrointestinal General gastrointestinal: normal bowel sounds, soft - Neurologic Neurologic: CNII-XII intact - Musculoskeletal Musculoskeletal: gait normal, generalized weakness, strength equal bilaterally - Psychiatric Psychiatric: A&O x's 3, appropriate affect, intact judgment & insight - Labs CBC & Chem 7: 02/05/19 10:24 02/05/19 10:24 Labs: Abnormal Lab Results - Last 24 Hours (Table) 02/04/19 02/04/19 02/05/19 Range/Units 17:28 21:15 07:02 Hgb (13.0-17.5) gm/dL Lymphocytes # (1.0-4.8) k/uL Chloride (98-107) mmol/L Carbon Dioxide (22-30) mmol/L BUN (9-20) mg/dL Glucose (74-99) mg/dL POC Glucose (mg/dL) 116 H 131 H 110 H (75-99) mg/dL 02/05/19 02/05/19 02/05/19 Range/Units 10:24 10:24 11:33 Hgb 12.8 L (13.0-17.5) gm/dL Lymphocytes # 0.4 L (1.0-4.8) k/uL Chloride 91 L (98-107) mmol/L Carbon Dioxide 46 H* (22-30) mmol/L BUN 28 H (9-20) mg/dL Glucose 105 H (74-99) mg/dL POC Glucose (mg/dL) 104 H (75-99) mg/dL Microbiology - Last 24 Hours (Table) 02/03/19 00:08 Blood Culture - Preliminary Blood No Growth after 48 hours 02/02/19 23:10 Blood Culture - Preliminary Blood No Growth after 48 hours Assessment and Plan Assessment: Acute COPD exacerbation Chronic hypoxic and hypercapnic respiratory failure, elevated CO2 in serum due to chronic hypercarbia Severe baseline COPD Acute on chronic Chronic respiratory failure due to severe COPD Tracheobronchitis Hypertension hypertensive cardiovascular disease Diastolic heart failure Olecranon bursitis Plan: IV steroids, can be switched to oral at the time of discharge Breathing treatment By mouth antibiotics Supplemental oxygen BiPAP at nighttime for now Increase activity as tolerated Patient will require Trilogy ventilator Arrange noninvasive ventilation with Trilogy ventilator which was not only reduces the work of breathing but improve pulmonary status and interruption of respiratory support could lead to serious harm such as decline in health status, worsening of condition, increased risk of CO2 retention, untimely readmissions and DVT prophylaxis Further plan of care as per clinical response of the patient Time with Patient: Greater than 30
[2019-02-05 17:26] LABS: Glucose,Whole Blood 112 mg/dL (75-99)
[2019-02-05 21:18] LABS: Glucose,Whole Blood 152 mg/dL (75-99)
[2019-02-06] MEDS: methylPREDNISolone SOD SUCCI 125 MG/2 ML VIAL IV SCH ×4 (05:30→23:58)
[2019-02-06 07:11] LABS: Glucose,Whole Blood 133 mg/dL (75-99)
[2019-02-06] MEDS: IPRATROPIUM-ALBUTEROL 3 ML NEB INHALATION SCH ×4 (07:24→21:07)
[2019-02-06] MEDS: BUDESONIDE 0.5 MG/2 ML NEBU INHALATION SCH ×2 (07:24→21:07)
[2019-02-06] MEDS: INSULIN ASPART (NovoLOG) 100 UNIT/ML VIAL SQ SCH ×4 (07:40→20:44)
[2019-02-06] MEDS: AZITHROMYCIN 500 MG TAB PO SCH (07:41)
--- NOTE | 2019-02-06 10:31 | P.PN ---
Subjective Progress Note Date: 02/06/19 Principal diagnosis: COPD exacerbation Patient was seen and examined. No acute events overnight. Patient reports no changes in his breathing since yesterday. He denies any chest pain or palpitations. Breathing almost back to baseline. Objective - Vital Signs Vital signs: Vital Signs Temp 98.1 F 02/06/19 06:26 Pulse 92 02/06/19 07:38 Resp 17 02/06/19 06:26 BP 137/72 02/06/19 06:26 Pulse Ox 99 02/06/19 06:26 Intake & Output 02/05/19 02/06/19 02/06/19 18:59 06:59 18:59 Intake Total 540 300 240 Output Total 1075 Balance 540 -775 240 Intake: Oral 540 300 240 Output: Urine 1075 Other: Voiding Method Toilet Urinal # Voids 4 1 # Bowel Movements 0 - Exam General: [non toxic], [no distress], [appears at stated age] Derm: [warm], [dry] Head: [atraumatic], [normocephalic], [symmetric] Eyes: [EOMI], [no lid lag], [anicteric sclera] Mouth: [no lip lesion], [mucus membranes moist] Cardiovascular: [S1S2 reg], [no murmur], [positive posterior tibial pulse bilateral], Lungs: [Decreased breath sounds bilateral], [no rhonchi, no rales] , [no accessory muscle use] Abdominal: [soft], [ nontender to palpation], [no guarding], [no appreciable organomegaly] Ext: [no gross muscle atrophy], [no edema], [no contractures] Neuro: [no focal neuro deficits] Psych: [Alert], [oriented], [appropriate affect] - Labs CBC & Chem 7: 02/05/19 10:24 02/05/19 10:24 Labs: Abnormal Lab Results - Last 24 Hours (Table) 02/05/19 02/05/19 02/05/19 Range/Units 10:24 10:24 11:33 Hgb 12.8 L (13.0-17.5) gm/dL Lymphocytes # 0.4 L (1.0-4.8) k/uL Chloride 91 L (98-107) mmol/L Carbon Dioxide 46 H* (22-30) mmol/L BUN 28 H (9-20) mg/dL Glucose 105 H (74-99) mg/dL POC Glucose (mg/dL) 104 H (75-99) mg/dL 02/05/19 02/05/19 02/06/19 Range/Units 17:24 20:52 06:59 Hgb (13.0-17.5) gm/dL Lymphocytes # (1.0-4.8) k/uL Chloride (98-107) mmol/L Carbon Dioxide (22-30) mmol/L BUN (9-20) mg/dL Glucose (74-99) mg/dL POC Glucose (mg/dL) 112 H 152 H 133 H (75-99) mg/dL Microbiology - Last 24 Hours (Table) 02/03/19 00:08 Blood Culture - Preliminary Blood No Growth after 72 hours 02/02/19 23:10 Blood Culture - Preliminary Blood No Growth after 72 hours Assessment and Plan Assessment: COPD exacerbation Acute on chronic respiratory failure with hypoxia and hypercapnia Hypertension Diastolic CHF Plans: DuoNeb as needed for shortness of breath or wheezing. Continue Solu- Medrol. Continue Pulmicort. Azithromycin for concerns of acute bronchitis. Follow pulmonology recommendations. ABG shows chronic primary respiratory acidosis. Plans: Pending delivery of trilogy vent to home. Follow pulmonology recommendations. Management as above. On 2 L home O2. BP 137/72. Plans: Monitor vitals, adjust medications as necessary. Euvolemic. Plans: Monitor. DC pending Pulmonology clearance and delivery of Trilogy vent to home. Today will be day 5 of IV steroids. Likely to be DC'd on prednisone taper.
[2019-02-06 11:59] LABS: Glucose,Whole Blood 105 mg/dL (75-99)
--- NOTE | 2019-02-06 16:08 | P.PN ---
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, respiratory acidosis acute on chronic 02/06/2019, patient seen eval reexamined during the rounds patient was noted to be napping still intermittently short of breath cough and congestion is present BiPAP is being used but it appears that it has not been improving patient's condition as he remains somnolent, his CO2 is still high 02/05/2019, patient seen and evaluated examined during the rounds he used the BiPAP machine almost 8 hours last night feels better denies any chest pain still of ongoing cough congestion shortness of breath severity has improved patient is being arranged for noninvasive ventilation with Trilogy Non invasive Ventilator 02/04/2019, patient seen and evaluated examined during the rounds he is more awake now he had the excellent response to BiPAP he is able to complete full sentences less short of breath denies any cough or sputum production labs reviewed medications reviewed patient has acute on chronic respiratory acidosis high serum CO2 is indicated above for chronic process, patient may be a candidate for noninvasive ventilation will arrange for Trilogy ventilator 78-year-old male who was seen evaluated examined this patient had 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 he is nebulizer dependent and oxygen dependent, he had the in his left elbow some of the olecranin bursitis on which lasted for one to 2 days and subsequently resolved then Monday or Monday started having cough congestion shortness of breath comes to a point sided to come into the hospital for shortness of breath chest pain cough swelling in the left elbow is resolved now he does not have any pain has been advised to see orthopedics doctor as outpatient, patient has chronic lower extremity edema used to take Lasix intermittently Objective - Vital Signs Vital signs: Vital Signs Temp 98.2 F 02/06/19 14:20 Pulse 92 02/06/19 14:20 Resp 20 02/06/19 14:20 BP 136/70 02/06/19 14:20 Pulse Ox 92 L 02/06/19 14:20 Intake & Output 02/05/19 02/06/19 02/06/19 18:59 06:59 18:59 Intake Total 540 300 480 Output Total 1075 Balance 540 -775 480 Intake: Oral 540 300 480 Output: Urine 1075 Other: Voiding Method Toilet Urinal # Voids 4 1 2 # Bowel Movements 0 - Exam - Constitutional General appearance: average body habitus, cooperative, disheveled, mild distress - EENT Eyes: anicteric sclerae, EOMI, PERRLA, poor dentition, normal appearance ENT: normal oropharynx Ears: bilateral: normal - Neck Neck: normal ROM Carotids: bilateral: upstroke normal, bruit absent Thyroid: bilateral: normal size - Respiratory Respiratory: bilateral: diminished, negative: dullness, rales, rhonchi, wheezing (Fine inspiratory and expiratory) - Cardiovascular Rhythm: regular Heart sounds: normal: S1, S2 - Gastrointestinal General gastrointestinal: normal bowel sounds, soft - Neurologic Neurologic: CNII-XII intact - Musculoskeletal Musculoskeletal: gait normal, generalized weakness, strength equal bilaterally - Psychiatric Psychiatric: A&O x's 3, appropriate affect, intact judgment & insight - Labs CBC & Chem 7: 02/05/19 10:24 02/05/19 10:24 Labs: Abnormal Lab Results - Last 24 Hours (Table) 02/05/19 02/05/19 02/06/19 Range/Units 17:24 20:52 06:59 POC Glucose (mg/dL) 112 H 152 H 133 H (75-99) mg/dL 02/06/19 Range/Units 11:52 POC Glucose (mg/dL) 105 H (75-99) mg/dL Microbiology - Last 24 Hours (Table) 02/03/19 00:08 Blood Culture - Preliminary Blood No Growth after 72 hours 02/02/19 23:10 Blood Culture - Preliminary Blood No Growth after 72 hours Assessment and Plan Assessment: Acute COPD exacerbation Chronic hypoxic and hypercapnic respiratory failure, elevated CO2 in serum due to chronic hypercarbia Severe baseline COPD Acute on chronic Chronic respiratory failure due to severe COPD Tracheobronchitis Hypertension hypertensive cardiovascular disease Diastolic heart failure Olecranon bursitis Plan: IV steroids, can be switched to oral at the time of discharge Breathing treatment By mouth antibiotics Supplemental oxygen BiPAP at nighttime for now tried but failed Increase activity as tolerated Patient will require Trilogy ventilator Arrange noninvasive ventilation with Trilogy ventilator which was not only reduces the work of breathing but improve pulmonary status and interruption of respiratory support could lead to serious harm such as decline in health status, worsening of condition, increased risk of CO2 retention, untimely readmissions and DVT prophylaxis Further plan of care as per clinical response of the patient Time with Patient: Greater than 30
[2019-02-06 17:19] LABS: Glucose,Whole Blood 117 mg/dL (75-99)
[2019-02-06 20:23] LABS: Glucose,Whole Blood 152 mg/dL (75-99)
[2019-02-07] MEDS: methylPREDNISolone SOD SUCCI 125 MG/2 ML VIAL IV SCH (06:02)
[2019-02-07 06:07] VITALS: BP 136/77; RESP 18; TEMP 98
[2019-02-07 07:10] LABS: Glucose,Whole Blood 106 mg/dL (75-99)
[2019-02-07] MEDS: INSULIN ASPART (NovoLOG) 100 UNIT/ML VIAL SQ SCH ×2 (07:39→12:24)
[2019-02-07] MEDS: BUDESONIDE 0.5 MG/2 ML NEBU INHALATION SCH (08:24)
[2019-02-07] MEDS: IPRATROPIUM-ALBUTEROL 3 ML NEB INHALATION SCH ×2 (08:24→11:35)
--- NOTE | 2019-02-07 09:15 | P.PN ---
Subjective Progress Note Date: 02/07/19 Principal diagnosis: COPD exacerbation Patient was seen and examined. No acute events overnight. Updated prescription and notes faxed to [facility] early this morning as per case management. However, processing may take another 24 hours. Patient reports no changes in his breath ing. He denies any chest pain or palpitations. No nausea or vomiting. No fever or chills. Objective - Vital Signs Vital signs: Vital Signs Temp 98.0 F 02/07/19 05:00 Pulse 76 02/07/19 08:34 Resp 18 02/07/19 05:00 BP 136/77 02/07/19 05:00 Pulse Ox 100 02/07/19 05:00 Intake & Output 02/06/19 02/07/19 02/07/19 18:59 06:59 18:59 Intake Total 720 700 240 Output Total 300 Balance 720 400 240 Intake: Oral 720 700 240 Output: Urine 300 Other: Voiding Method Toilet Toilet Urinal Urinal # Voids 2 1 - Exam General: [non toxic], [no distress], [appears at stated age] Derm: [warm], [dry] Head: [atraumatic], [normocephalic], [symmetric] Eyes: [EOMI], [no lid lag], [anicteric sclera] Mouth: [no lip lesion], [mucus membranes moist] Cardiovascular: [S1S2 reg], [no murmur], [positive DP pulse bilateral], Lungs: [Decreased breath sounds with scattered wheezing bilaterally], [no rhonchi, no rales] , [no accessory muscle use] Abdominal: [soft], [ nontender to palpation], [no guarding], [no appreciable o rganomegaly] Ext: [no gross muscle atrophy], [no edema], [no contractures] Neuro: [no focal neuro deficits] Psych: [Alert], [oriented], [appropriate affect] - Labs CBC & Chem 7: 02/05/19 10:24 02/05/19 10:24 Labs: Abnormal Lab Results - Last 24 Hours (Table) 02/06/19 02/06/19 02/06/19 Range/Units 11:52 17:13 20:16 POC Glucose (mg/dL) 105 H 117 H 152 H (75-99) mg/dL 02/07/19 Range/Units 07:06 POC Glucose (mg/dL) 106 H (75-99) mg/dL Microbiology - Last 24 Hours (Table) 02/03/19 00:08 Blood Culture - Preliminary Blood No Growth after 96 hours 02/02/19 23:10 Blood Culture - Preliminary Blood No Growth after 96 hours Assessment and Plan Assessment: COPD exacerbation Acute on chronic respiratory failure with hypoxia and hypercapnia Hypertension Diastolic CHF Plans: DuoNeb as needed for shortness of breath or wheezing. Continue Solu- Medrol, wean down dose from every 6 hours to every 8 hours. Continue Pulmicort. Completed a 3 day course of azithromycin. Follow pulmonology recommendations. ABG shows chronic primary respiratory acidosis. Plans: Pending delivery of trilogy vent to home. Follow pulmonology recommendations. Management as above. On 2 L home O2. BP 136/77. Plans: Monitor vitals, adjust medications as necessary. Euvolemic. Plans: Monitor. DC pending Pulmonology clearance and delivery of Trilogy vent to home. Today will be day 6 of IV steroids. Likely to be DC'd on prednisone taper.
[2019-02-07 09:52] VITALS: BMI 26.9
[2019-02-07 10:14] LABS: African American GFR (CKD) >90 (>60 ml/min/1.73 sqM); Blood Urea Nitrogen 27 mg/dL (9-20); Calcium 8.8 mg/dL (8.4-10.2); Chloride 91 mmol/L (98-107); Glucose 152 mg/dL (74-99); Potassium 4.5 mmol/L (3.5-5.1); Sodium 141 mmol/L (137-145)
[2019-02-07 10:21] LABS: Anion Gap 8 mmol/L
[2019-02-07 10:23] LABS: Carbon Dioxide 42 mmol/L (22-30)
[2019-02-07 11:38] VITALS: PULSE 72
[2019-02-07 12:17] LABS: Glucose,Whole Blood 126 mg/dL (75-99)
--- NOTE | 2019-02-07 15:07 | P.PN ---
Subjective Progress Note Date: 02/07/19 Principal diagnosis: Chronic respiratory failure, severe end-stage lung disease secondary due to severe COPD, respiratory acidosis acute on chronic 02/08/2019, patient denies any chest pain or shortness of breath his noninvasive ventilator is being arranged cough phlegm is better 02/07/2019, patient seen eval reexamined during the rounds still have ongoing shortness of breath cough phlegm has improved patient has shortness of breath ongoing is intermittently napping throughout the day patient is being arranged for Trilogy ventilator 02/06/2019, patient seen eval reexamined during the rounds patient was noted to be napping still intermittently short of breath cough and congestion is present BiPAP is being used but it appears that it has not been improving patient's con dition as he remains somnolent, his CO2 is still high 02/05/2019, patient seen and evaluated examined during the rounds he used the BiPAP machine almost 8 hours last night feels better denies any chest pain still of ongoing cough congestion shortness of breath severity has improved patient is being arranged for noninvasive ventilation with Trilogy Non invasive Ventilator 02/04/2019, patient seen and evaluated examined during the rounds he is more awake now he had the excellent response to BiPAP he is able to complete full sentences less short of breath denies any cough or sputum production labs reviewed medications reviewed patient has acute on chronic respiratory acidosis high serum CO2 is indicated above for chronic process, patient may be a candidate for noninvasive ventilation will arrange for Trilogy ventilator 78-year-old male who was seen evaluated examined this patient had 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 he is nebulizer dependent and oxygen dependent, he had the in his left elbow some of the olecranin bursitis on which lasted for one to 2 days and subsequently resolved then Monday or Monday started having cough congestion shortness of breath comes to a point sided to come into the hospital for shortness of breath chest pain cough swell ing in the left elbow is resolved now he does not have any pain has been advised to see orthopedics doctor as outpatient, patient has chronic lower extremity edema used to take Lasix intermittently Objective - Vital Signs Vital signs: Vital Signs Temp 98.0 F 02/07/19 05:00 Pulse 72 02/07/19 11:45 Resp 18 02/07/19 05:00 BP 136/77 02/07/19 05:00 Pulse Ox 100 02/07/19 05:00 Intake & Output 02/06/19 02/07/19 02/07/19 18:59 06:59 18:59 Intake Total 720 700 240 Output Total 300 Balance 720 400 240 Weight 95.254 kg Intake: Oral 720 700 240 Output: Urine 300 Other: Voiding Method Toilet Toilet Urinal Urinal # Voids 2 1 2 - Exam - Constitutional General appearance: average body habitus, cooperative, disheveled, mild distress - EENT Eyes: anicteric sclerae, EOMI, PERRLA, poor dentition, normal appearance ENT: normal oropharynx Ears: bilateral: normal - Neck Neck: normal ROM Carotids: bilateral: upstroke normal, bruit absent Thyroid: bilateral: normal size - Respiratory Respiratory: bilateral: diminished, negative: dullness, rales, rhonchi, wheezing (Fine inspiratory and expiratory) - Cardiovascular Rhythm: regular Heart sounds: normal: S1, S2 - Gastrointestinal General gastrointestinal: normal bowel sounds, soft - Neurologic Neurologic: CNII-XII intact - Musculoskeletal Musculoskeletal: gait normal, generalized weakness, strength equal bilaterally - Psychiatric Psychiatric: A&O x's 3, appropriate affect, intact judgment & insight - Labs CBC & Chem 7: 02/05/19 10:24 02/07/19 09:31 Labs: Abnormal Lab Results - Last 24 Hours (Table) 02/06/19 02/06/19 02/07/19 Range/Units 17:13 20:16 07:06 Chloride (98-107) mmol/L Carbon Dioxide (22-30) mmol/L BUN (9-20) mg/dL Creatinine (0.66-1.25) mg/dL Glucose (74-99) mg/dL POC Glucose (mg/dL) 117 H 152 H 106 H (75-99) mg/dL 02/07/19 02/07/19 Range/Units 09:31 12:14 Chloride 91 L (98-107) mmol/L Carbon Dioxide 42 H* (22-30) mmol/L BUN 27 H (9-20) mg/dL Creatinine 0.56 L (0.66-1.25) mg/dL Glucose 152 H (74-99) mg/dL POC Glucose (mg/dL) 126 H (75-99) mg/dL Microbiology - Last 24 Hours (Table) 07/14/19 00:08 Blood Culture - Preliminary Blood No Growth after 96 hours 02/02/19 23:10 Blood Culture - Preliminary Blood No Growth after 96 hours Assessment and Plan Assessment: Acute COPD exacerbation Chronic hypoxic and hypercapnic respiratory failure, elevated CO2 in serum due to chronic hypercarbia Severe baseline COPD Acute on chronic Chronic respiratory failure due to severe COPD Tracheobronchitis Hypertension hypertensive cardiovascular disease Diastolic heart failure Olecranon bursitis Plan: IV steroids, can be switched to oral at the time of discharge Breathing treatment By mouth antibiotics Supplemental oxygen BiPAP at nighttime for now tried but failed Increase activity as tolerated Patient will require Trilogy ventilator Arrange noninvasive ventilation with Trilogy ventilator which was not only reduces the work of breathing but improve pulmonary status and interruption of respiratory support could lead to serious harm such as decline in health status, worsening of condition, increased risk of CO2 retention, untimely readmissions and DVT prophylaxis Further plan of care as per clinical response of the patient Time with Patient: Greater than 30
[2019-02-07] MEDS ORDERED: methylPREDNISolone SOD SUCCI 125 MG/2 ML VIAL IV SCH (16:00)
== END 2019-02-07 12:49 | disposition home or self-care (01) | DRG 190 ==
LOC: EC 18:44 → 3SCARD 21:37 → 4MS4W 02-03 21:20
PROVIDERS: ADMIT Internal Medicine; ATTEND Internal Medicine
PROC: 5A09557 Assistance with Respiratory Ventilation, Greater than 96 Consecutive Hours, Continuous Positive Airway Pressure (ICD-10-PCS; principal; 2019-02-03)
DX: J43.9 Emphysema, unspecified (principal); J96.21 Acute and chronic respiratory failure with hypoxia; J96.22 Acute and chronic respiratory failure with hypercapnia; I50.32 Chronic diastolic (congestive) heart failure; E87.2 Acidosis; J44.0 Chronic obstructive pulmonary disease with (acute) lower respiratory infection; J20.9 Acute bronchitis, unspecified; I11.0 Hypertensive heart disease with heart failure; I25.10 Atherosclerotic heart disease of native coronary artery without angina pectoris; M70.22 Olecranon bursitis, left elbow; Z51.5 Encounter for palliative care; I49.3 Ventricular premature depolarization; Z91.14 Patient's other noncompliance with medication regimen; Z99.81 Dependence on supplemental oxygen; Z87.891 Personal history of nicotine dependence; Z82.49 Family history of ischemic heart disease and other diseases of the circulatory system; Z88.1 Allergy status to other antibiotic agents; Z99.89 Dependence on other enabling machines and devices; Z88.8 Allergy status to other drugs, medicaments and biological substances
CPT/HCPCS: 36415; 36600; 71046; 80048; 80053; 81003; 82805; 83735; 83880; 84484; 85025; 85610; 85730; 87040; 93005; 94640; 94660; 94760; 96365; 96375; 99285

== ENCOUNTER → 2019-04-02 | Outpatient (CLI) | payer MEDICARE | END | disposition home or self-care (01) | LOC: CPPFTMAIN 12:41 | PROVIDERS: ATTEND Internal Medicine Sleep Medicine | DX: J44.9 Chronic obstructive pulmonary disease, unspecified (principal) | CPT/HCPCS: 94060; 94726; 94729 ==

== ENCOUNTER 2022-10-07 14:17 | Inpatient (IN) | payer MEDICARE ==
[2022-10-07 16:02] LABS: Basophils % (A) 1 %; Eosinophils # (A) 0.1 k/uL (0-0.7); Eosinophils % (A) 2 %; HCT 42.3 % (39.0-53.0); HGB 13.1 gm/dL (13.0-17.5); Hypochromasia Slight; Lymphocytes # (A) 0.4 k/uL (1.0-4.8); Lymphocytes % (A) 12 %; MCH 31.5 pg (25.0-35.0); MCHC 31.1 g/dL (31.0-37.0); MCV 101.3 fL (80.0-100.0); Mean Platelet Volume 8.3; Monocytes # (A) 0.4 k/uL (0-1.0); Monocytes % (A) 11 %; Neutrophils # (A) 2.4 k/uL (1.3-7.7); Neutrophils % (A) 72 %; Platelet Count 132 k/uL (150-450); RBC 4.17 m/uL (4.30-5.90); RDW 12.5 % (11.5-15.5); WBC 3.3 k/uL (3.8-10.6)
--- NOTE | 2022-10-07 16:06 | XR ---
EXAMINATION TYPE: XR chest 1V portable DATE OF EXAM: 10/07/2022 3:59 PM COMPARISON: Chest radiographs from 02/02/2019. TECHNIQUE: XR chest 1V portable Portable AP radiograph of the chest. CLINICAL INDICATION:Male, 82 years old with history of dyspnea; FINDINGS: Lungs/Pleura: Hyperinflation with bibasilar pleural-parenchymal scarring. No pleural effusion. Right mid lung patchy air space opacities. Right apical pleural-parenchymal scarring. Pulmonary vascularity: Unremarkable. Heart/mediastinum: Cardiomediastinal silhouette is unremarkable. Musculoskeletal: No acute osseous pathology. IMPRESSION: COPD changes with patchy right midlung airspace opacities which may represent infiltrate versus atele ctasis/scarring.
[2022-10-07 16:17] LABS: INR 0.9 (<1.2); Partial Thromboplastin Time 24.8 sec (22.0-30.0); Prothrombin Time 9.6 sec (9.0-12.0)
[2022-10-07] MEDS ORDERED: predniSONE 20 MG TAB PO STA (16:19)
[2022-10-07] MEDS ORDERED: IPRATROPIUM-ALBUTEROL 3 ML NEB INHALATION STA (16:19)
[2022-10-07] MEDS ORDERED: ALBUTEROL NEBULIZED 2.5 MG/3 ML INHALATION STA (16:20)
--- NOTE | 2022-10-07 16:21 | ED ---
SOB HPI - General Chief Complaint: Shortness of Breath Stated Complaint: SOB Time Seen by Provider: 10/07/22 15:10 Source: patient Mode of arrival: wheelchair Limitations: no limitations - History of Present Illness Initial Comments: This patient is an 82-year-old man who presents to evaluation for worsening of his shortness of breath. He states that this is been getting worse over about the last 3 weeks or so. He does have underlying history of COPD and sees Dr. Escobar. He manages at home with oxygen at 3 L usually but states this doesn't seem sufficient today. He denies taking oral steroids at the moment. The patient has not noted fever or chills. No chest pain. No change in his cough. He has not noted bloody or tarry stools. No change in his underlying leg edema. No leg pain MD Complaint: shortness of breath Onset/Timin -: week(s) Severity scale (1-10): 0 Consistency: constant Improves With: nothing Worsens With: nothing Known History Of: COPD Treatments Prior to Arrival: none - Related Data Home Oxygen Therapy: Yes Home Oxygen Amount: 3 Liters Home Medications Medication Instructions Recorded Confirmed Ipratropium-Albuterol Nebulize 3 ml INHALATION RT-QID 02/03/19 10/07/22 [Duoneb 0.5 mg-3 mg/3 ml Soln] Budesonide Nebulizer 1 vial INHALATION RT-BID 10/07/22 10/07/22 Solution(Unknown Dose) Bumetanide [BUMEX] 0.5 mg PO DAILY 10/07/22 10/07/22 Allergies Allergy/AdvReac Type Severity Reaction Status Date / Time bacitracin Allergy Unknown Verified 10/07/22 17:24 [From Neosporin ([id number])] neomycin Allergy Unknown Verified 10/07/22 17:24 [From Neosporin ([id number])] polymyxin B Allergy Unknown Verified 10/07/22 17:24 [From Neosporin ([id number])] Review of Systems ROS Statement: Those systems with pertinent positive or pertinent negative responses have been documented in the HPI. ROS Other: All systems not noted in ROS Statement are negative. Constitutional: Denies: fever, chills Respiratory: Reports: wheezes. Denies: cough, dyspnea, hemoptysis Cardiovascular: Reports: edema (Chronic). Denies: chest pain, palpitations, syncope Gastrointestinal: Denies: abdominal pain, nausea, vomiting, diarrhea Genitourinary: Denies: dysuria, hematuria Musculoskeletal: Denies: back pain Skin: Denies: rash Neurological: Denies: headache, weakness, numbness Psychiatric: Denies: anxiety Past Medical History Past Medical History: Coronary Artery Disease (CAD), COPD, Hypertension Additional Past Medical History / Comment(s): chf History of Any Multi-Drug Resistant Organisms: None Reported Past Surgical History: No Surgical Hx Reported Past Psychological History: No Psychological Hx Reported Past Alcohol Use History: None Reported Past Drug Use History: None Reported - Past Family History Father Family Medical History: Coronary Artery Disease (CAD) General Exam Limitations: no limitations General appearance: alert, in no apparent distress Head exam: Present: atraumatic, normocephalic Eye exam: Present: normal appearance. Absent: scleral icterus, conjunctival injection Neck exam: Present: normal inspection Respiratory exam: Present: respiratory distress (Mild tachypnea), wheezes, accessory muscle use, decreased breath sounds, prolonged expiratory. Absent: rales, rhonchi, stridor, chest wall tenderness Cardiovascular Exam: Present: regular rate, normal rhythm, normal heart sounds. Absent: systolic murmur, diastolic murmur, rubs, gallop GI/Abdominal exam: Present: soft. Absent: distended, tenderness, guarding, rebound, rigid, mass Extremities exam: Present: normal inspection, normal capillary refill. Absent: pedal edema, calf tenderness Back exam: Present: normal inspection. Absent: CVA tenderness (R), CVA tenderness (L) Neurological exam: Present: alert Skin exam: Present: warm, dry, intact, normal color. Absent: rash Course Vital Signs 10/07/22 10/07/22 10/07/22 14:26 17:42 17:59 Temperature 98.4 F Pulse Rate 100 103 H 108 H Respiratory 24 Rate Blood Pressure 158/64 O2 Sat by Pulse 95 Oximetry Fraction of Inspired Oxygen (FIO2) 10/07/22 10/07/22 10/07/22 18:34 18:43 18:59 Temperature Pulse Rate 89 87 Respiratory 19 20 Rate Blood Pressure 165/71 164/78 O2 Sat by Pulse 100 95 Oximetry Fraction of 50 Inspired Oxygen (FIO2) 10/07/22 10/07/2223 19:30 19:40 19:50 Temperature Pulse Rate 89 89 96 Respiratory 19 18 20 Rate Blood Pressure 167/81 168/72 168/72 O2 Sat by Pulse 95 97 87 L Oximetry Fraction of Inspired Oxygen (FIO2) 10/07/22 10/07/22 10/07/22 20:00 20:06 20:10 Temperature Pulse Rate 102 H 109 H Respiratory 36 H 16 Rate Blood Pressure 168/72 124/63 O2 Sat by Pulse 99 100 Oximetry Fraction of 50 Inspired Oxygen (FIO2) 10/07/22 10/07/22 10/07/22 20:11 20:20 20:50 Temperature Pulse Rate 112 H Respiratory 16 Rate Blood Pressure 124/63 O2 Sat by Pulse 100 Oximetry Fraction of 50 35 Inspired Oxygen (FIO2) 10/07/22 10/07/22 20:52 21:17 Temperature Pulse Rate 105 H 102 H Respiratory 18 18 Rate Blood Pressure 100/59 102/62 O2 Sat by Pulse 100 100 Oximetry Fraction of Inspired Oxygen (FIO2) Procedures - Intubation Sedative: Etomidate Laryngoscope: Sabine Size: 3 ET Tube Size: 8 Tube Placement Confirmation: visualized tube passing through cords, equal breath sounds bilaterally, no breath sounds over epigastrium, confirmation by capnometry Patient Tolerated Procedure: well, no complications Intubation Complications: none Medical Decision Making - Medical Decision Making This patient is an 82-year-old man with underlying history of COPD who is here for worsening of his respiratory condition. The patient did have a chest x-ray which I interpreted as showing no pneumothorax, there are changes consistent with underlying COPD. The patient did receive steroids, nebulized medication, and I was not having adequate relief of symptoms and started to manifest suspected increasing pCO2. The patient is given trial of BiPAP and the case is discussed with the admitting physician. Following the trial of BiPAP, the patient's pCO2 had actually increased and his mental status has worsened. I did find a CODE STATUS and the prior chart which indicated the patient did want ventilator support of that became necessary. The prior note also stated that the patient would not want CPR if his heart should stop for any reason. I had discussion with family at bedside and they're supportive of the patient prior expressed wishes. Following that discussion, the patient is intubated by myself, see the note. Patient admitted to the ICU. Repeat blood gas does show that the pCO2 is beginning to improve following intubation. The repeat chest x-ray was obtained and I interpreted this as showing endotracheal intubation with tube above the damion. An x-ray was obtained following NG tube placement which does show the NG tube in the stomach as interpreted by myself. Was pt. sent in by a medical professional or institution ([facility], [facility] [facility] [facility], urgent care, hospital, or snf...) When possible be specific @ -[No] Did you speak to anyone other than the patient for history (EMS, parent, family, police, friend...)? What history was obtained from this source @ -[No] Did you review nursing and triage notes (agree or disagree)? Why? @ -[I reviewed and agree with nursing and triage notes] Were old charts reviewed (outside hosp., previous admission, EMS record, old EKG, old radiological studies, urgent care reports/EKG's, snf records)? Report findings @ -[No old charts were reviewed] Differential Diagnosis (chest pain, altered mental status, abdominal pain women, abdominal pain men, vaginal bleeding, weakness, fever, dyspnea, syncope, h eadache, dizziness, GI bleed, back pain, seizure, CVA, palpatations, mental health, musculoskeletal)? @ -[Differential Dyspnea: Coronary syndrome, arrhythmia, tamponade, asthma, COPD, pulmonary embolism, pneumonia, pneumothorax, pulmonary effusion, anaphylaxis, diabetic ketoacidosis, flailed chest, pulmonary contusion, diaphragmatic rupture, anemia, neuromuscular, this is not meant to be an all-inclusive list. EKG interpreted by me (3pts min.). @ -[As above] X-rays interpreted by me (1pt min.). @ -[As above CT interpreted by me (1pt min.). @ -[None done] U/S interpreted by me (1pt. min.). @ -[None done] What testing was considered but not performed or refused? (CT, X-rays, U/S, labs)? Why? @ -[None] What meds were considered but not given or refused? Why? @ -[None] Did you discuss the management of the patient with other professionals (professionals i.e. , [facility], [employer], lab, RT, psych nurse, oncology social worker, armature connector, teacher, workplace rehabilitation officer, dependency case manager)? Give summary @ -[Case is discussed with admitting physician and with the bottling line operator Was smoking cessation discussed for >3mins.? @ -[No] Was critical care preformed (if so, how long)? @ -[Yes 40 minutes Were there social determinants of health that impacted care today? How? (Homelessness, low income, unemployed, alcoholism, drug addiction, transporta tion, low edu. Level, literacy, decrease access to med. care, long-term, rehab)? @ -[No] Was there de-escalation of care discussed even if they declined (Discuss DNR or withdrawal of care, Hospice)? DNR status @ -[Yes What co-morbidities impacted this encounter? (DM, HTN, Smoking, COPD, CAD, Cancer, CVA, ARF, Chemo, Hep., AIDS, mental health diagnosis, sleep apnea, morbid obesity)? @ -[COPD Was patient admitted / discharged? Hospital course, mention meds given and route, prescriptions, significant lab abnormalities, going to OR and other pertinent info. @ -[Patient is admitted to go to the ICU to continue steroids, inhaled medications and ventilator care Undiagnosed new problem with uncertain prognosis? @ -[No] Drug Therapy requiring intensive monitoring for toxicity (Heparin, Nitro, Insulin, Cardizem)? @ -[Yes propofol Were any procedures done? @ -[Endotracheal intubation, see note Diagnosis/symptom? @ -[Acute exacerbation of COPD Acute hypercarbic respiratory failure Acute, or Chronic, or Acute on Chronic? @ -[Acute on chronic Uncomplicated (without systemic symptoms) or Complicated (systemic symptoms)? @ -[Complicated Side effects of treatment? @ -[No] Exacerbation, Progression, or Severe Exacerbation? @ -[Severe exacerbation of COPD Poses a threat to life or bodily function? How? (Chest pain, [place], [place], pneumonia, PE, COPD, DKA, ARF, appy, cholecystitis, CVA, Diverticulitis, Homicidal, Suicidal, threat to staff... and all critical care pts) @ -[Yes - Lab Data Result diagrams: 10/07/22 21:05 10/07/22 21:05 Lab Results 10/07/22 10/07/22 10/07/22 Range/Units 15:47 15:47 15:47 WBC 3.3 L (3.8-10.6) k/uL RBC 4.17 L (4.30-5.90) m/uL Hgb 13.1 (13.0-17.5) gm/dL Hct 42.3 (39.0-53.0) % MCV 101.3 H (80.0-100.0) fL MCH 31.5 (25.0-35.0) pg MCHC 31.1 (31.0-37.0) g/dL RDW 12.5 (11.5-15.5) % Plt Count 132 L (150-450) k/uL MPV 8.3 Neutrophils % 72 % Lymphocytes % 12 % Monocytes % 11 % Eosinophils % 2 % Basophils % 1 % Neutrophils # 2.4 (1.3-7.7) k/uL Lymphocytes # 0.4 L (1.0-4.8) k/uL Monocytes # 0.4 (0-1.0) k/uL Eosinophils # 0.1 (0-0.7) k/uL Basophils # 0.0 (0-0.2) k/uL Hypochromasia Slight PT 9.6 (9.0-12.0) sec INR 0.9 (<1.2) APTT 24.8 (22.0-30.0) sec D-Dimer (<0.60) mg/L FEU Sodium 142 (137-145) mmol/L Potassium 4.5 (3.5-5.1) mmol/L Chloride 87 L (98-107) mmol/L Carbon Dioxide 50 H* (22-30) mmol/L Anion Gap 5 mmol/L BUN 22 H (9-20) mg/dL Creatinine 0.44 L (0.66-1.25) mg/dL Est GFR (CKD-EPI)AfAm >90 (>60 ml/min/1.73 sqM) Est GFR (CKD-EPI)NonAf >90 (>60 ml/min/1.73 sqM) Glucose 107 H (74-99) mg/dL Plasma Lactic Acid Asaf (0.7-2.0) mmol/L Calcium 8.6 (8.4-10.2) mg/dL Total Bilirubin 0.7 (0.2-1.3) mg/dL AST 27 (17-59) U/L ALT 19 (4-49) U/L Alkaline Phosphatase 78 (38-126) U/L Troponin I (0.000-0.034) ng/mL NT-Pro-B Natriuret Pep pg/mL Total Protein 7.1 (6.3-8.2) g/dL Albumin 4.0 (3.5-5.0) g/dL Coronavirus (PCR) (Not Detectd) 10/07/22 10/07/22 10/07/22 Range/Units 15:47 15:47 15:47 WBC (3.8-10.6) k/uL RBC (4.30-5.90) m/uL Hgb (13.0-17.5) gm/dL Hct (39.0-53.0) % MCV (80.0-100.0) fL MCH (25.0-35.0) pg MCHC (31.0-37.0) g/dL RDW (11.5-15.5) % Plt Count (150-450) k/uL MPV Neutrophils % % Lymphocytes % % Monocytes % % Eosinophils % % Basophils % % Neutrophils # (1.3-7.7) k/uL Lymphocytes # (1.0-4.8) k/uL Monocytes # (0-1.0) k/uL Eosinophils # (0-0.7) k/uL Basophils # (0-0.2) k/uL Hypochromasia PT (9.0-12.0) sec INR (<1.2) APTT (22.0-30.0) sec D-Dimer (<0.60) mg/L FEU Sodium (137-145) mmol/L Potassium (3.5-5.1) mmol/L Chloride (98-107) mmol/L Carbon Dioxide (22-30) mmol/L Anion Gap mmol/L BUN (9-20) mg/dL Creatinine (0.66-1.25) mg/dL Est GFR (CKD-EPI)AfAm (>60 ml/min/1.73 sqM) Est GFR (CKD-EPI)NonAf (>60 ml/min/1.73 sqM) Glucose (74-99) mg/dL Plasma Lactic Acid Asaf 0.8 (0.7-2.0) mmol/L Calcium (8.4-10.2) mg/dL Total Bilirubin (0.2-1.3) mg/dL AST (17-59) U/L ALT (4-49) U/L Alkaline Phosphatase (38-126) U/L Troponin I <0.012 (0.000-0.034) ng/mL NT-Pro-B Natriuret Pep 402 pg/mL Total Protein (6.3-8.2) g/dL Albumin (3.5-5.0) g/dL Coronavirus (PCR) (Not Detectd) 10/07/22 10/07/22 Range/Units 15:47 16:30 WBC (3.8-10.6) k/uL RBC (4.30-5.90) m/uL Hgb (13.0-17.5) gm/dL Hct (39.0-53.0) % MCV (80.0-100.0) fL MCH (25.0-35.0) pg MCHC (31.0-37.0) g/dL RDW (11.5-15.5) % Plt Count (150-450) k/uL MPV Neutrophils % % Lymphocytes % % Monocytes % % Eosinophils % % Basophils % % Neutrophils # (1.3-7.7) k/uL Lymphocytes # (1.0-4.8) k/uL Monocytes # (0-1.0) k/uL Eosinophils # (0-0.7) k/uL Basophils # (0-0.2) k/uL Hypochromasia PT (9.0-12.0) sec INR (<1.2) APTT (22.0-30.0) sec D-Dimer 0.74 H (<0.60) mg/L FEU Sodium (137-145) mmol/L Potassium (3.5-5.1) mmol/L Chloride (98-107) mmol/L Carbon Dioxide (22-30) mmol/L Anion Gap mmol/L BUN (9-20) mg/dL Creatinine (0.66-1.25) mg/dL Est GFR (CKD-EPI)AfAm (>60 ml/min/1.73 sqM) Est GFR (CKD-EPI)NonAf (>60 ml/min/1.73 sqM) Glucose (74-99) mg/dL Plasma Lactic Acid Asaf (0.7-2.0) mmol/L Calcium (8.4-10.2) mg/dL Total Bilirubin (0.2-1.3) mg/dL AST (17-59) U/L ALT (4-49) U/L Alkaline Phosphatase (38-126) U/L Troponin I (0.000-0.034) ng/mL NT-Pro-B Natriuret Pep pg/mL Total Protein (6.3-8.2) g/dL Albumin (3.5-5.0) g/dL Coronavirus (PCR) Not Detected (Not Detectd) - EKG Data -: EKG Interpreted by Me EKG shows normal: sinus rhythm (With occasional premature supraventricular complexes), axis (Normal), intervals (Normal), QRS complexes Rate: normal (Rate 94 bpm) Interpretation: nonspecific ST-T wave changes Critical Care Time Critical Care Time: Yes (40 minutes) Disposition Clinical Impression: COPD exacerbation, Chronic respiratory failure with hypoxia and hypercapnia Disposition: ADMITTED IP TO THIS HOSP Condition: Serious Is patient prescribed a controlled substance at d/c from ED?: No
[2022-10-07 16:24] LABS: ALT 19 U/L (4-49); AST 27 U/L (17-59); African American GFR (CKD) >90 (>60 ml/min/1.73 sqM); Alkaline Phosphatase 78 U/L (38-126); Blood Urea Nitrogen 22 mg/dL (9-20); Calcium 8.6 mg/dL (8.4-10.2); Chloride 87 mmol/L (98-107); Glucose 107 mg/dL (74-99); Non-African American GFR(CKD) >90 (>60 ml/min/1.73 sqM); Potassium 4.5 mmol/L (3.5-5.1); Sodium 142 mmol/L (137-145); Total Bilirubin 0.7 mg/dL (0.2-1.3); Total Protein 7.1 g/dL (6.3-8.2)
[2022-10-07 16:30] LABS: Anion Gap 5 mmol/L
[2022-10-07 16:35] LABS: Carbon Dioxide 50 mmol/L (22-30)
[2022-10-07] MEDS ORDERED: AZITHROMYCIN 500 MG TAB PO STA (16:53)
[2022-10-07] MEDS ORDERED: NALOXONE 0.4 MG/ML 1 ML VIAL IVP PRN (18:35)
[2022-10-07] MEDS ORDERED: IPRATROPIUM-ALBUTEROL 3 ML NEB INHALATION PRN (18:35)
[2022-10-07] MEDS ORDERED: ACETAMINOPHEN TAB 325 MG TAB PO PRN (18:35)
[2022-10-07 19:07] LABS: VBG PH 7.26 (7.31-7.41)
[2022-10-07 19:29] LABS: ABG PO2 75 mmHg (83-108); Allen Test Performed? Yes
[2022-10-07 19:36] LABS: ABG PCO2 >120 mmHg (35-45)
[2022-10-07] MEDS ORDERED: ETOMIDATE 2 MG/ML 10 ML VIAL IVP STA (19:50)
[2022-10-07] MEDS ORDERED: MORPHINE SULFATE 4 MG/ML SYRINGE IVP STA (19:57)
[2022-10-07] MEDS ORDERED: LORazepam 2 MG/ML INJ IV STA ×3 (19:57→22:48)
[2022-10-07] MEDS ORDERED: IPRATROPIUM-ALBUTEROL 3 ML NEB INHALATION SCH (20:00)
--- NOTE | 2022-10-07 20:23 | XR ---
EXAMINATION TYPE: XR chest 1V portable DATE OF EXAM: 10/07/2022 COMPARISON: 10/07/2022 HISTORY: Short of breath Tube placement TECHNIQUE: FINDINGS: Heart size is normal. There is pulmonary hyperinflation and flattening of the diaphragm. Th e endotracheal tube is 5 cm from the damion. There is some mild increased interstitial density in the mid and lower lung wu. There are chest leads. There is mild flattening of the diaphragm. There i s mild pleural thickening at the lung apices. IMPRESSION: COPD. Endotracheal tube in good position. Mild prominent fibrosis. No significant change.
[2022-10-07 20:46] LABS: ABG Base Excess 22.2 mmol/L; ABG Oxygen Saturation 99.9 % (94-97); ABG PO2 172 mmHg (83-108); ABG TCO2 52 mmol/L (19-24); Allen Test Performed? Yes
[2022-10-07 20:47] LABS: ABG HCO3 49 mmol/L (21-25); ABG PCO2 99 mmHg (35-45)
[2022-10-07] MEDS: ALBUTEROL NEBULIZED 2.5 MG/3 ML INHALATION SCH (21:14)
[2022-10-07] MEDS: SYMBICORT 160-4.5 MCG INHALER INHALATION SCH (21:14)
[2022-10-07] MEDS: IPRATROPIUM 0.5 MG/2.5 ML NEBU INHALATION SCH (21:15)
[2022-10-07 21:28] LABS: Glucose,Whole Blood 128 mg/dL (70-110)
--- NOTE | 2022-10-07 21:52 | XR ---
EXAMINATION TYPE: XR abdomen 1V DATE OF EXAM: 10/07/2022 COMPARISON: NONE HISTORY: Tube placement TECHNIQUE: Single view FINDINGS: There is nasogastric tube and the tip is over the gastric fundus. There is pulmonary hyperi nflation and flattening of the diaphragm. Bowel gas pattern is nonacute. No sign of free air. IMPRESSION: NG tube is in the stomach.
[2022-10-07 21:53] LABS: Basophils % (A) 1 %; Eosinophils % (A) 0 %; HCT 40.1 % (39.0-53.0); HGB 12.5 gm/dL (13.0-17.5); Hypochromasia Slight; Lymphocytes # (A) 0.2 k/uL (1.0-4.8); Lymphocytes % (A) 5 %; MCH 31.6 pg (25.0-35.0); MCHC 31.2 g/dL (31.0-37.0); MCV 101.1 fL (80.0-100.0); Mean Platelet Volume 8.7; Monocytes # (A) 0.2 k/uL (0-1.0); Monocytes % (A) 5 %; Neutrophils # (A) 3.9 k/uL (1.3-7.7); Neutrophils % (A) 86 %; Platelet Count 118 k/uL (150-450); RBC 3.97 m/uL (4.30-5.90); RDW 12.7 % (11.5-15.5); WBC 4.5 k/uL (3.8-10.6)
[2022-10-07 22:24] LABS: ALT 19 U/L (4-49); AST 25 U/L (17-59); African American GFR (CKD) >90 (>60 ml/min/1.73 sqM); Albumin 3.6 g/dL (3.5-5.0); Alkaline Phosphatase 74 U/L (38-126); Blood Urea Nitrogen 25 mg/dL (9-20); Calcium 8.4 mg/dL (8.4-10.2); Chloride 89 mmol/L (98-107); Glucose 135 mg/dL (74-99); Magnesium 1.8 mg/dL (1.6-2.3); Non-African American GFR(CKD) >90 (>60 ml/min/1.73 sqM); Potassium 4.7 mmol/L (3.5-5.1); Sodium 140 mmol/L (137-145); Total Bilirubin 0.8 mg/dL (0.2-1.3); Total Protein 6.1 g/dL (6.3-8.2)
[2022-10-07 22:29] LABS: Anion Gap 5 mmol/L
[2022-10-07] MEDS ORDERED: levETIRAcetam IV 1,500 MG in SALINE 1 100ML.BAG IVPB ONE (22:30)
[2022-10-07 22:34] LABS: Carbon Dioxide 46 mmol/L (22-30)
[2022-10-07] MEDS: CHLORHEXIDINE GLUCONATE 15 ML CUP MUCOUS MEM SCH (22:49)
[2022-10-07] MEDS: HEPARIN SODIUM,PORCINE/PF 5,000 UNIT/0.5 ML SYRINGE SQ SCH (22:49)
[2022-10-07] MEDS: AZITHROMYCIN 500 MG in SODIUM CHLORIDE 0.9% 250 ML IVPB SCH (23:19)
[2022-10-07] MEDS: methylPREDNISolone SOD SUCCI 125 MG/2 ML VIAL IV SCH (23:28)
[2022-10-07 23:33] LABS: Glucose,Whole Blood 141 mg/dL (70-110)
--- NOTE | 2022-10-08 01:23 | CT ---
EXAMINATION TYPE: CT brain wo con DATE OF EXAM: 10/08/2022 COMPARISON: None HISTORY: seizures CT DLP: 1196.4 mGycm Automated exposure control for dose reduction was used. Images of the brain obtained with no contrast. Ventricles and sulci appear normal. There is no mass effect or midline shift. No sign of intracranial hemorrhage. Calvarium is intact. There is normal aeration of the mastoid sinuses. There is some mild mucosal thickening in the ethmoid and left maxillary sinus. No evidence of orbital mass. IMPRESSION: Ethmoid and left-sided maxillary sinusitis. No acute intracranial abnormality.
[2022-10-08 04:42] LABS: Basophils % (A) 0 %; Eosinophils % (A) 0 %; HCT 36.6 % (39.0-53.0); HGB 11.7 gm/dL (13.0-17.5); Lymphocytes # (A) 0.3 k/uL (1.0-4.8); Lymphocytes % (A) 9 %; MCH 31.8 pg (25.0-35.0); MCV 99.5 fL (80.0-100.0); Mean Platelet Volume 8.9; Monocytes # (A) 0.1 k/uL (0-1.0); Monocytes % (A) 4 %; Neutrophils # (A) 2.4 k/uL (1.3-7.7); Neutrophils % (A) 85 %; Platelet Count 155 k/uL (150-450); RBC 3.68 m/uL (4.30-5.90); RDW 12.5 % (11.5-15.5); WBC 2.8 k/uL (3.8-10.6)
[2022-10-08 04:57] LABS: African American GFR (CKD) >90 (>60 ml/min/1.73 sqM); Blood Urea Nitrogen 30 mg/dL (9-20); Calcium 8.5 mg/dL (8.4-10.2); Chloride 89 mmol/L (98-107); Glucose 132 mg/dL (74-99); Non-African American GFR(CKD) >90 (>60 ml/min/1.73 sqM); Sodium 138 mmol/L (137-145)
[2022-10-08 05:07] LABS: Anion Gap 6 mmol/L; Potassium 5.1 mmol/L (3.5-5.1)
[2022-10-08 05:16] LABS: Carbon Dioxide 43 mmol/L (22-30)
[2022-10-08 05:29] LABS: ABG Base Excess 23.5 mmol/L; ABG Oxygen Saturation 98.4 % (94-97); ABG PCO2 58 mmHg (35-45); ABG PH 7.51 (7.35-7.45); ABG PO2 83 mmHg (83-108); ABG TCO2 48 mmol/L (19-24); Allen Test Performed? Yes
[2022-10-08 05:44] LABS: Glucose,Whole Blood 138 mg/dL (70-110)
[2022-10-08] MEDS: methylPREDNISolone SOD SUCCI 125 MG/2 ML VIAL IV SCH ×4 (05:58→23:25)
[2022-10-08 05:59] LABS: ABG HCO3 46 mmol/L (21-25)
--- NOTE | 2022-10-08 07:41 | XR ---
EXAMINATION TYPE: XR chest 1V portable DATE OF EXAM: 10/08/2022 Comparison: 10/07/2022 Clinical History: 82-year-old male Tube placement Findings: ET tube tip satisfactory. NG tube courses below the diaphragm. The sidehole is just above the GE junc tion level. Consider further advancement by approximately 6 cm so that this atelectasis. Heart normal size. Marked hyperinflation. Questionable blunting of the right costophrenic angle. Otherwise, no ai r space opacity seen. Impression: COPD with marked emphysema. Possible trace blunting of the right costophrenic angle that could reflec t a trace pleural effusion. Consider advancing the NG tube by 6 cm so that the side hole enters the s tomach.
[2022-10-08] MEDS: ALBUTEROL NEBULIZED 2.5 MG/3 ML INHALATION SCH ×4 (08:35→20:00)
[2022-10-08] MEDS: IPRATROPIUM 0.5 MG/2.5 ML NEBU INHALATION SCH ×4 (08:37→20:00)
[2022-10-08] MEDS: SYMBICORT 160-4.5 MCG INHALER INHALATION SCH ×2 (08:37→19:53)
[2022-10-08] MEDS ORDERED: levETIRAcetam IV 1,000 MG in SALINE 1 100ML.BAG IVPB SCH (09:00)
[2022-10-08] MEDS ORDERED: AZITHROMYCIN 500 MG TAB PO SCH (09:00)
[2022-10-08] MEDS: HEPARIN SODIUM,PORCINE/PF 5,000 UNIT/0.5 ML SYRINGE SQ SCH ×2 (09:35→20:29)
[2022-10-08] MEDS: CHLORHEXIDINE GLUCONATE 15 ML CUP MUCOUS MEM SCH ×2 (09:35→20:29)
--- NOTE | 2022-10-08 10:54 | P.CNNES ---
History of Present Illness Consult date: 10/08/22 Requesting physician: Shawn Andrew Reason for Consult: possible seizure History of Present Illness: This is an 82-year-old gentleman with history of COPD, coronary artery disease, hypertension who presented emergency department because of shortness of breath. Neurology is consulted for possible seizure. History is obtained from medical records and ICU nurse. In our facility the patient was intubated on a ventilator and was sent to ICU It seems the patient has been having worsening of his shortness of breath over the past 3 weeks and he is on 3 L of oxygen at home. Overnight yesterday around the 92 tenderness p.m. the ICU nurse felt like he was shaking/tremorous of all extremities and concern for seizure-like activity. I notified the overnight nurse to give the patient the Ativan 2 mg with a loading dose of Keppra 1500 mg once. Then in the morning the patient nurse notified me that no further seizure activity but she felt the patient had no brainstem activity that she felt. Patient does not have any history of seizures that is noted in EMR. Some of the workup during his hospital visit consisted of: Initial pulse ox 95% on 3 L nasal cannula. Heart rate during his hospital visit as been in the 80s to 100. Pulse ox was as low as 87% Carbon dioxide is 50 on presentation, chlorides 87, initial serum glucose is 107. The calcium, magnesium, AST and ALT is within normal limits Lainez virus is not detected Initial ABG is the pH of 7.1, pCO2 is more than 120, oxygen is 75 and the oxygen saturation is 92. FiO2 is 50%. CT of the head is reported as ethmoid and left sided maxillary sinusitis. No ac jill intracranial abnormality. I personally reviewed the CT of the head and there is no acute subacute ischemia there is no intracranial hemorrhage. Chest x-ray is reported as COPD changes with the patchy right mid lung airspace opacity which may represent infiltrate versus atelectasis/scarring. Review of Systems Review of system is limited but the prone positive and negative as per HPI. Past Medical History Past Medical History: Coronary Artery Disease (CAD), COPD, Hypertension Additional Past Medical History / Comment(s): chf History of Any Multi-Drug Resistant Organisms: None Reported Past Surgical History: No Surgical Hx Reported Past Psychological History: No Psychological Hx Reported Past Alcohol Use History: None Reported Past Drug Use History: None Reported - Past Family History Father Family Medical History: Coronary Artery Disease (CAD) Medications and Allergies Home Medications Medication Instructions Recorded Confirmed Type Ipratropium-Albuterol Nebulize 3 ml INHALATION RT-QID 02/03/19 10/07/22 History [Duoneb 0.5 mg-3 mg/3 ml Soln] Budesonide Nebulizer 1 vial INHALATION RT-BID 10/07/22 10/07/22 History Solution(Unknown Dose) Bumetanide [BUMEX] 0.5 mg PO DAILY 10/07/22 10/07/22 History Allergies Allergy/AdvReac Type Severity Reaction Status Date / Time bacitracin Allergy Unknown Verified 10/07/22 17:24 [From Neosporin ([id number])] neomycin Allergy Unknown Verified 10/07/22 17:24 [From Neosporin (joc-[id number])] polymyxin B Allergy Unknown Verified 10/07/22 17:24 [From Neosporin ([id number]-evn-[id number])] Physical Examination - Vital Signs Vital Signs: Vital Signs Temp Pulse Resp BP Pulse Ox FiO2 10/08/22 10:00 75 22 120/68 100 10/08/22 09:03 81 22 139/103 99 10/08/22 08:47 86 10/08/22 08:37 86 10/08/22 07:59 35 10/08/22 06:30 98 22 93/62 96 10/08/22 06:00 101.9 F H 100 22 95/66 96 35 10/08/22 05:30 94 22 97/63 96 10/08/22 05:00 101.7 F H 98 22 92/58 95 35 10/08/22 04:30 98 23 95 10/08/22 04:00 102.7 F H 98 22 97/57 95 35 10/08/22 03:57 35 10/08/22 03:30 105 H 22 90/63 96 10/08/22 03:16 35 10/08/22 03:00 94 22 95/64 96 35 10/08/22 02:35 93 22 96 10/08/22 02:00 101 H 22 100/62 97 35 10/08/22 01:30 103 H 22 94/65 98 10/08/22 01:00 104 H 22 94/65 99 35 10/08/22 00:30 105 H 22 103/67 98 10/08/22 00:00 108 H 22 104/66 99 35 10/07/22 23:35 35 10/07/22 23:30 101 H 22 110/67 93 L 10/07/22 23:00 95 22 101/57 96 35 10/07/22 22:30 99 22 104/53 97 35 10/07/22 22:00 98.4 F 104 H 22 100/54 96 35 10/07/22 21:17 102 H 18 102/62 100 10/07/22 20:52 105 H 18 100/59 100 10/07/22 20:50 35 10/07/22 20:20 112 H 16 124/63 100 10/07/22 20:11 50 10/07/22 20:10 109 H 16 124/63 100 10/07/22 20:06 50 10/07/22 20:00 102 H 36 H 168/72 99 10/07/22 19:50 96 20 168/72 87 L 10/07/22 19:40 89 18 168/72 97 10/07/22 19:30 89 19 167/81 95 10/07/22 18:59 87 20 164/78 95 10/07/22 18:43 50 10/07/22 18:34 89 19 165/71 100 10/07/22 17:59 108 H 10/07/22 17:42 103 H 10/07/22 14:26 98.4 F 100 24 158/64 95 Intake and Output 10/07/22 10/08/22 10/08/22 22:59 06:59 14:59 Intake Total 132.348 371.912 140 Output Total 0 140 120 Balance 132.348 231.912 20 Intake: IV 120 330 140 0.9% @ KVO 20 80 40 Azithromycin 500 mg In 250 Sodium Chloride 0.9% 250 ml @ 250 mls/hr IVPB HS [facility] Rx#:[id number] levETIRAcetam IV 1,500 mg 100 100 In Saline 1 100ml.bag @ 400 mls/hr IVPB ONCE ONE Rx#:[id number] Intake, IV Titration 12.348 41.912 0 Amount propofoL 1,000 mg In 12.348 41.912 0 Empty Bag 1 bag @ 15 MCG/ KG/MIN 6.736 mls/hr IV . [id number] [facility] Rx#:[id number] Output: Urine 0 140 120 Other: Weight 74.843 kg 76.3 kg GENERAL: The patient is lying in bed and does not appear is acute distress. CHEST: The heart rate is regular rate rhythm. NO edema in lower extremity. LUNG: Clear to auscultation bilaterally no wheezing noted throughout. Not labored breathing. Intubated on ventilator. ABDOMEN/GI: Bowel sounds present in all 4 quadrants. No tenderness to palpation throughout. NEUROLOGICAL: Limited because of patient condition as well is on IV Propofol Higher mental function: The patient is severely drowsy. He briefly opened his eyes one time to voice. He is not following commands. Cranial nerves: The pupils are round, pinpoint about 1-2mm and hard to appreciate reactivity. Primary gaze is midline to rolled back. +ve corneal reflex bilaterally. No facial weakness. +ve very weak cough. Not breathing over the vent. Motor: The strength is hard to assess but at times would moves bilateral uppers spontaneously. Had some tremors of uppers and thigh with stimuli but improves with rest. Would bend his knees one time on his own. Normal tone and bulk. Cerebellum: Unable to assess. Sensation: Unable to assess light touch. Reflexes (right/left): 1+ throughout. Plantars are downgoing bilaterally. Results - Laboratory Findings CBC and BMP: 10/08/22 03:40 10/08/22 03:40 Abnormal Lab Findings: Abnormal Labs 10/07/22 10/07/22 10/07/22 15:47 15:47 16:30 WBC 3.3 L RBC 4.17 L Hgb Hct MCV 101.3 H Plt Count 132 L Lymphocytes # 0.4 L D-Dimer 0.74 H ABG pH ABG pCO2 ABG pO2 ABG HCO3 ABG Total CO2 ABG O2 Saturation VBG pH VBG pCO2 VBG HCO3 Chloride 87 L Carbon Dioxide 50 H* BUN 22 H Creatinine 0.44 L Glucose 107 H POC Glucose (mg/dL) Total Protein 10/07/22 10/07/22 10/07/22 18:45 19:25 20:40 WBC RBC Hgb Hct MCV Plt Count Lymphocytes # D-Dimer ABG pH 7.10 L* 7.30 L ABG pCO2 >120 H* 99 H* ABG pO2 75 L 172 H ABG HCO3 49 H* ABG Total CO2 52 H ABG O2 Saturation 92.0 L 99.9 H VBG pH 7.26 L VBG pCO2 107 H* VBG HCO3 47 H Chloride Carbon Dioxide BUN Creatinine Glucose POC Glucose (mg/dL) Total Protein 10/07/22 10/07/22 10/07/22 21:05 21:05 21:27 WBC RBC 3.97 L Hgb 12.5 L Hct MCV 101.1 H Plt Count 118 L Lymphocytes # 0.2 L D-Dimer ABG pH ABG pCO2 ABG pO2 ABG HCO3 ABG Total CO2 ABG O2 Saturation VBG pH VBG pCO2 VBG HCO3 Chloride 89 L Carbon Dioxide 46 H* BUN 25 H Creatinine 0.46 L Glucose 135 H POC Glucose (mg/dL) 128 H Total Protein 6.1 L 10/07/22 10/08/22 10/08/22 23:32 03:40 03:40 WBC 2.8 L RBC 3.68 L Hgb 11.7 L Hct 36.6 L MCV Plt Count Lymphocytes # 0.3 L D-Dimer ABG pH ABG pCO2 ABG pO2 ABG HCO3 ABG Total CO2 ABG O2 Saturation VBG pH VBG pCO2 VBG HCO3 Chloride 89 L Carbon Dioxide 43 H* BUN 30 H Creatinine 0.58 L Glucose 132 H POC Glucose (mg/dL) 141 H Total Protein 10/08/22 10/08/22 05:27 05:44 WBC RBC Hgb Hct MCV Plt Count Lymphocytes # D-Dimer ABG pH 7.51 H ABG pCO2 58 H ABG pO2 ABG HCO3 46 H* ABG Total CO2 48 H ABG O2 Saturation 98.4 H VBG pH VBG pCO2 VBG HCO3 Chloride Carbon Dioxide BUN Creatinine Glucose POC Glucose (mg/dL) 138 H Total Protein Assessment and Plan Assessment: This is a 82-year-old gentleman with history of COPD that's been having shortness of breath with a past 2-3 weeks. Tremor/jerking of extremities seems more myoclonic jerk due to hypercapnia. Rule out seizure Altered mental status due to hypercapnic and hypoxic encephalopathy. Also medication effect (Propofol) Acute COPD exacerbation. History of COPD on oxygen at home Plan: I started the patient on Keppra at thousand milligram every 12 hours for seizure prophylaxis. I ordered a stat EEG. If EEG is negative for seizures all go down on the Keppra. I ordered TSH, ammonia level, vitamin B-12, folate We'll defer the rest of the medical measure the primary team Patient condition is very guarded. The plan was discussed with the patient's nurse Thank you for the consultation Time with Patient: Greater than 30
[2022-10-08] MEDS ORDERED: CISATRACURIUM 2 MG/ML 5 ML VIAL IV ONE (11:08)
[2022-10-08 11:33] LABS: Glucose,Whole Blood 144 mg/dL (70-110)
--- NOTE | 2022-10-08 12:13 | XR ---
EXAMINATION TYPE: XR chest 1V confirm line plcnh DATE OF EXAM: 10/08/2022 COMPARISON: 10/08/2022 HISTORY: 82-year-old male Central line placement TECHNIQUE: Single frontal view of the chest is obtained. FINDINGS: ET tube satisfactory. Distal aspect of the NG tube is outside the field of view. Heart nor mal size. Marked hyperinflation. Right IJ CVC tip noted to be at the lower SVC level. No appreciable pneumothorax. No consolidation or pleural effusion. Right base excluded from view. IMPRESSION: 1. Right IJ CVC tip in the lower SVC. 2. COPD with marked emphysema. Right base excluded from view and not assessed.
--- NOTE | 2022-10-08 12:54 | P.CNPUL ---
History of Present Illness Consult date: 10/08/22 Requesting physician: Javier Triplett Reason for consult: COPD, hypoxemia, other (Respiratory failure) Chief complaint: Shortness of breath History of present illness: This is an 82-year-old white male with known history of severe COPD, O2 dependent, normally on 3 L nasal cannula at home. Patient presents to the ER for evaluation of chronic shortness of breath, and has been getting worse over the last 3 weeks. While in the ER, the patient was developing worsening respiratory failure, and I believe he was given a trial of BiPAP according to the note by the ER physician. Intravenous blood gases done showed a pCO2 of 107 and a pH of 7.26. FEN another ABG was done which was just before the patient was intubated showed a pO2 of 75 pCO2 of more than 120 and a pH of 7.10. Apparently the patient had a sudden deteriorating course while in the ER with worsening hypercapnia. Then another ABG was done post intubation showed a pO2 of 172 pCO2 of 99 pH of 7.30. I was notified about this patient after he was intubated, accepted the patient to the ICU and recommended some changes in the ventilator settings. I saw him this morning, ABG this morning showed a pO2 of 83 pCO2 58 pH of 7.51 and I felt the patient is being hyperventilated I cut down his rate from 22 down to 18. Obviously the patient has a baseline pCO2 most likely in the high 60s or 70s. Patient is now on assist control rate of 18 tidal volume 450 FiO2 35% PEEP of 5 and he is on IV fluid at KVO, it did receive Diamox last night. He had a temp of 102 last night, and we will start enteral feeding via orogastric tube. Chest x-ray showed no evidence of infiltrate, it is mostly consistent with COPD/emphysema. After evaluating the patient this morning went ahead and placed a right IJ triple-lumen cath and a right radial arterial line for monitoring. Looking at the note from the ER physician apparently he discussed the CODE STATUS with the family family agreed to intubation although the patient was DO NOT RESUSCITATE on previous admissions. We need to clarify this CODE STATUS with the family at bedside. Labs today showed WBC count of 2.8 hemoglobin 11.7, basic metabolic profile is normal except for elevated bicarb of 43 renal profile is normal, screening for COVID-19 infection was negative Review of Systems ROS unobtainable: due to endotracheal tube Past Medical History Past Medical History: Coronary Artery Disease (CAD), COPD, Hypertension Additional Past Medical History / Comment(s): chf History of Any Multi-Drug Resistant Organisms: None Reported Past Surgical History: No Surgical Hx Reported Past Psychological History: No Psychological Hx Reported Past Alcohol Use History: None Reported Past Drug Use History: None Reported - Past Family History Father Family Medical History: Coronary Artery Disease (CAD) Medications and Allergies Home Medications Medication Instructions Recorded Confirmed Type Ipratropium-Albuterol Nebulize 3 ml INHALATION RT-QID 02/03/19 10/07/22 History [Duoneb 0.5 mg-3 mg/3 ml Soln] Budesonide Nebulizer 1 vial INHALATION RT-BID 10/07/22 10/07/22 History Solution(Unknown Dose) Bumetanide [BUMEX] 0.5 mg PO DAILY 10/07/22 10/07/22 History Allergies Allergy/AdvReac Type Severity Reaction Status Date / Time bacitracin Allergy Unknown Verified 10/07/22 17:24 [From Neosporin ([id number])] neomycin Allergy Unknown Verified 10/07/22 17:24 [From Neosporin ([id number]-[id number])] polymyxin B Allergy Unknown Verified 10/07/22 17:24 [From Neosporin ([id number]-lry-[id number])] Physical Exam Vitals: Vital Signs Temp Pulse Resp BP Pulse Ox FiO2 10/08/22 12:00 97.4 F L 71 18 106/69 100 35 10/08/22 11:30 73 18 119/68 100 10/08/22 11:00 75 18 105/62 100 10/08/22 10:50 35 10/08/22 10:00 75 22 120/68 100 10/08/22 09:03 81 22 139/103 99 10/08/22 08:47 86 10/08/22 08:37 86 10/08/22 07:59 35 10/08/22 06:30 98 22 93/62 96 10/08/22 06:00 101.9 F H 100 22 95/66 96 35 10/08/22 05:30 94 22 97/63 96 10/08/22 05:00 101.7 F H 98 22 92/58 95 35 03/18/23 04:30 98 23 95 10/08/22 04:00 102.7 F H 98 22 97/57 95 35 10/08/22 03:57 35 10/08/22 03:30 105 H 22 90/63 96 10/08/22 03:16 35 10/08/22 03:00 94 22 95/64 96 35 10/08/22 02:35 93 22 96 10/08/22 02:00 101 H 22 100/62 97 35 10/08/22 01:30 103 H 22 94/65 98 10/08/22 01:00 104 H 22 94/65 99 35 10/08/22 00:30 105 H 22 103/67 98 10/08/22 00:00 108 H 22 104/66 99 35 10/07/22 23:35 35 10/07/22 23:30 101 H 22 110/67 93 L 10/07/22 23:00 95 22 101/57 96 35 10/07/22 22:30 99 22 104/53 97 35 10/07/22 22:00 98.4 F 104 H 22 100/54 96 35 10/07/22 21:17 102 H 18 102/62 100 10/07/22 20:52 105 H 18 100/59 100 10/07/22 20:50 35 10/07/22 20:20 112 H 16 124/63 100 10/07/22 20:11 50 10/07/22 20:10 109 H 16 124/63 100 10/07/22 20:06 50 10/07/22 20:00 102 H 36 H 168/72 99 10/07/22 19:50 96 20 168/72 87 L 10/07/22 19:40 89 18 168/72 97 10/07/22 19:30 89 19 167/81 95 10/07/22 18:59 87 20 164/78 95 10/07/22 18:43 50 10/07/22 18:34 89 19 165/71 100 10/07/22 17:59 108 H 10/07/22 17:42 103 H 10/07/22 14:26 98.4 F 100 24 158/64 95 Intake and Output 10/07/22 10/08/22 10/08/22 22:59 06:59 14:59 Intake Total 132.348 371.912 160 Output Total 0 140 335 Balance 132.348 231.912 -175 Intake: IV 120 330 160 0.9% @ KVO 20 80 60 Azithromycin 500 mg In 250 Sodium Chloride 0.9% 250 ml @ 250 mls/hr IVPB HS [facility] Rx#:[id number] levETIRAcetam IV 1,500 mg 100 100 In Saline 1 100ml.bag @ 400 mls/hr IVPB ONCE ONE Rx#:[id number] Intake, IV Titration 12.348 41.912 0 Amount propofoL 1,000 mg In 12.348 41.912 0 Empty Bag 1 bag @ 15 MCG/ KG/MIN 6.736 mls/hr IV . [id number] [facility] Rx#:[id number] Output: Urine 0 140 335 Other: Weight 74.843 kg 76.3 kg ABP, PAP, CO, CI - Last 8 Hours Arterial Blood Pressure 117/48 Arterial Blood Pressure 129/65 Physical Exam: Revealed 82-year-old white male in no distress sedated intubated mechanically ventilated Head: Atraumatic, normocephalic. Endotracheal tube and orogastric tube are intact. HEENT:[Neck is supple.] [No neck masses.] [No thyromegaly.] [No JVD.] Dry mucous membranes. Chest: [Symmetrical chest expansion, diminished breath sound bilaterally throughout. No rhonchi no wheezes Cardiac Exam: [Normal S1 and S2, no S3 gallop, no murmur.] Abdomen: [Soft, nontender, no megaly, no rebound, no guarding, normal bowel sounds.] Extremities: [No clubbing, no edema, no cyanosis.] Neurological Exam: [Could not assess, patient is sedated, and mechanically ventilated. Psychiatric: Could not assess. Skin: No rashes. Results - Laboratory Findings CBC and BMP: 10/08/22 03:40 10/08/22 03:40 ABG ABG pH 7.51 (7.35-7.45) H 10/08/22 05:27 ABG pCO2 58 mmHg (35-45) H 10/08/22 05:27 ABG pO2 83 mmHg (83-108) 10/08/22 05:27 ABG O2 Saturation 98.4 % (94-97) H 10/08/22 05:27 PT/INR, D-dimer PT 9.6 sec (9.0-12.0) 10/07/22 15:47 INR 0.9 (<1.2) 10/07/22 15:47 D-Dimer 0.74 mg/L FEU (<0.60) H 10/07/22 16:30 Abnormal lab findings: Abnormal Labs 10/07/22 10/07/22 10/07/22 15:47 15:47 16:30 WBC 3.3 L RBC 4.17 L Hgb Hct MCV 101.3 H Plt Count 132 L Lymphocytes # 0.4 L D-Dimer 0.74 H ABG pH ABG pCO2 ABG pO2 ABG HCO3 ABG Total CO2 ABG O2 Saturation VBG pH VBG pCO2 VBG HCO3 Chloride 87 L Carbon Dioxide 50 H* BUN 22 H Creatinine 0.44 L Glucose 107 H POC Glucose (mg/dL) Total Protein 10/07/22 10/07/22 10/07/22 18:45 19:25 20:40 WBC RBC Hgb Hct MCV Plt Count Lymphocytes # D-Dimer ABG pH 7.10 L* 7.30 L ABG pCO2 >120 H* 99 H* ABG pO2 75 L 172 H ABG HCO3 49 H* ABG Total CO2 52 H ABG O2 Saturation 92.0 L 99.9 H VBG pH 7.26 L VBG pCO2 107 H* VBG HCO3 47 H Chloride Carbon Dioxide BUN Creatinine Glucose POC Glucose (mg/dL) Total Protein 10/07/22 10/07/22 10/07/22 21:05 21:05 21:27 WBC RBC 3.97 L Hgb 12.5 L Hct MCV 101.1 H Plt Count 118 L Lymphocytes # 0.2 L D-Dimer ABG pH ABG pCO2 ABG pO2 ABG HCO3 ABG Total CO2 ABG O2 Saturation VBG pH VBG pCO2 VBG HCO3 Chloride 89 L Carbon Dioxide 46 H* BUN 25 H Creatinine 0.46 L Glucose 135 H POC Glucose (mg/dL) 128 H Total Protein 6.1 L 10/07/22 10/08/22 10/08/22 23:32 03:40 03:40 WBC 2.8 L RBC 3.68 L Hgb 11.7 L Hct 36.6 L MCV Plt Count Lymphocytes # 0.3 L D-Dimer ABG pH ABG pCO2 ABG pO2 ABG HCO3 ABG Total CO2 ABG O2 Saturation VBG pH VBG pCO2 VBG HCO3 Chloride 89 L Carbon Dioxide 43 H* BUN 30 H Creatinine 0.58 L Glucose 132 H POC Glucose (mg/dL) 141 H Total Protein 10/08/22 10/08/22 10/08/22 05:27 05:44 11:31 WBC RBC Hgb Hct MCV Plt Count Lymphocytes # D-Dimer ABG pH 7.51 H ABG pCO2 58 H ABG pO2 ABG HCO3 46 H* ABG Total CO2 48 H ABG O2 Saturation 98.4 H VBG pH VBG pCO2 VBG HCO3 Chloride Carbon Dioxide BUN Creatinine Glucose POC Glucose (mg/dL) 138 H 144 H Total Protein - Diagnostic Findings Chest x-ray: image reviewed (As noted in HPI.) Assessment and Plan Assessment: Impression: Acute on chronic hypoxic and hypercapnic respiratory failure requiring intubation and mechanical ventilation, failed initial BiPAP treatment in the ER. Severe underlying COPD/emphysema Chronic hypoxic and hypercapnic respiratory failure Underlying coronary artery disease Benign essential hypertension Recommendation: Continue ventilatory support Continue bronchodilators Continue empiric antibiotics for now Continue GI and DVT prophylaxis Nutritional support/enteral feeding to be started Check sputum cultures and blood cultures No plans to address weaning today, but we'll start addressing weaning in the next 24 hours. Resume home meds Prognosis is definitely poor and guarded CODE STATUS will be discussed again with family Time with Patient: Greater than 30
--- NOTE | 2022-10-08 14:17 | OP ---
OPERATIVE REPORT DATE OF SERVICE : PROCEDURE PERFORMED: Placement of a right IJ triple-lumen catheter. PREOPERATIVE DIAGNOSIS: Acute hypoxic and hypercapnic respiratory failure requiring intubation and mechanical ventilation. POSTOPERATIVE DIAGNOSIS: Acute hypoxic and hypercapnic respiratory failure requiring intubation and mechanical ventilation. ANESTHESIA USED: None deployed. DESCRIPTION OF PROCEDURE: The patient was placed in a Trendelenburg position, the area of the right cervical region was prepared in a sterile fashion and drapes were applied. Using the posterior approach, the right internal jugular vein was easily cannulated, and a guidewire was placed. The area around the guidewire was dilated. Then a triple-lumen catheter was inserted over the guidewire, and the guidewire was removed. Good blood flow noted in the 3 different ports of the triple-lumen catheter. The line was secured using 3.0 silk sutures and the followup chest x-ray is pending at the time of dictation. MMODL / IJN: [id number] /
--- NOTE | 2022-10-08 14:27 | OP ---
OPERATIVE REPORT DATE OF SERVICE : PROCEDURE PERFORMED: Placement of a right radial arterial line. PREOPERATIVE DIAGNOSES: Acute hypoxic and hypercapnic respiratory failure requiring intubation and mechanical ventilation. POSTOPERATIVE DIAGNOSES: Acute hypoxic and hypercapnic respiratory failure requiring intubation and mechanical ventilation. ANESTHESIA USED: None deployed. DESCRIPTION OF PROCEDURE: The right wrist was prepared in a sterile fashion. Drapes were applied, the right radial artery was palpated, easily cannulated and a guidewire was placed. A Cook's catheter was inserted over the guidewire, and the guidewire was removed. Good blood flow, good waveform noted, no complications. Line was secured using 3.0 silk sutures. MMODL / IJN: [id number] /
[2022-10-08] MEDS ORDERED: SODIUM CHLORIDE 0.9% 1,000 ML IV ONE (15:17)
[2022-10-08] MEDS: PANTOPRAZOLE 40 MG/10 ML VIAL IVP SCH (15:49)
[2022-10-08] MEDS: SODIUM CHLORIDE 0.9% 1,000 ML IV SCH (15:52)
[2022-10-08] MEDS: NOREPINEPHRINE 32 MG in SODIUM CHLORIDE 0.9% 218 ML IV SCH (16:47)
[2022-10-08 17:56] LABS: African American GFR (CKD) >90 (>60 ml/min/1.73 sqM); Blood Urea Nitrogen 31 mg/dL (9-20); Calcium 8.2 mg/dL (8.4-10.2); Chloride 92 mmol/L (98-107); Glucose 172 mg/dL (74-99); Magnesium 1.8 mg/dL (1.6-2.3); Non-African American GFR(CKD) 86 (>60 ml/min/1.73 sqM); Potassium 3.5 mmol/L (3.5-5.1); Sodium 138 mmol/L (137-145)
[2022-10-08 18:03] LABS: Anion Gap 8 mmol/L
[2022-10-08 18:04] LABS: Carbon Dioxide 38 mmol/L (22-30)
[2022-10-08 18:07] LABS: Glucose,Whole Blood 156 mg/dL (70-110)
[2022-10-08] MEDS ORDERED: Potassium Replacement Protocol 1 EACH MISC MISCELLANE PRN (18:17)
[2022-10-08] MEDS: POTASSIUM BICARBONATE/CIT AC 20 MEQ TABLET.EFF NG-TUBE SCH ×2 (18:21→20:29)
[2022-10-08] MEDS ORDERED: MAGNESIUM SULFATE-D5W PMX 1 GM in DEXTROSE/WATER 1 100ML.BAG IVPB ONE (19:21)
[2022-10-08] MEDS ORDERED: Magnesium Replacement Protocol 1 EACH MISC MISCELLANE PRN (19:21)
--- NOTE | 2022-10-08 19:48 | EEG ---
ELECTROENCEPHALOGRAM REPORT CLINICAL HISTORY: This is an 82-year-old gentleman, who presented to the emergency department because of shortness of breath, who has shaking and jerking of extremities. The video EEG is obtained to evaluate for seizure epileptiform activity. RELEVANT MEDICATIONS: Keppra as well as IV propofol. EEG TYPE: A routine 21-channel EEG is performed with video using the 10/20 electrode placement system. DESCRIPTION: The patient is intubated on a ventilator. The background consists of [id number] voltage of 7-8 hertz that is poorly modulated. At times, the background consists of diffuse suppression to low diffuse nonrhythmic delta activity. There is no focal slowing. Interictal and ictal is none. ACTIVATION PROCEDURE: Photic stimulation and hyperventilation is not performed. CLINICAL INTERPRETATION: This is an abnormal routine EEG. The background slowing is suggestive of moderate encephalopathy likely due to toxic metabolic derangement vs medication effect. Otherwise, there is no focal slowing, epileptiform discharges, or seizure on the EEG. Clinical correlation is recommended. BETTINA / RAMIRO: [id number] / KIZZY
--- NOTE | 2022-10-08 19:59 | P.HPIM ---
History of Present Illness Chief Complaint: Shortness of breath 82-year-old man who presents to evaluation for worsening of his shortness of breath. He states that this is been getting worse over about the last 3 weeks or so. He does have underlying history of COPD and sees Dr. Escobar. He manages at home with oxygen at 3 L usually but states this doesn't seem sufficient today. He denies taking oral steroids at the moment. The patient has not noted fever or chills. No chest pain. No change in his cough. He has not noted bloody or tarry stools. No change in his underlying leg edema. No leg pain Carbon dioxide is 50 on presentation, chlorides 87, initial serum glucose is 107. The calcium, magnesium, AST and ALT is within normal limits Lainez virus is not detected Initial ABG is the pH of 7.1, pCO2 is more than 120, oxygen is 75 and the oxygen saturation is 92. FiO2 is 50%. CT of the head is reported as ethmoid and left sided maxillary sinusitis. No acute intracranial abnormality. I personally reviewed the CT of the head and there is no acute subacute ischemia there is no intracranial hemorrhage. Chest x-ray is reported as COPD changes with the patchy right mid lung airspace opacity which may represent infiltrate versus atelectasis/scarring. Review of Systems REVIEW OF SYSTEMS: CONSTITUTIONAL: No fever, no malaise, no fatigue. HEENT: No recent visual problems or hearing problems. Denied any sore throat. CARDIOVASCULAR: No chest pain, orthopnea, PND, no palpitations, no syncope. PULMONARY: No shortness of breath, no cough, no hemoptysis. GASTROINTESTINAL: No diarrhea, no nausea, no vomiting, no abdominal pain. NEUROLOGICAL: No headaches, no weakness, no numbness. HEMATOLOGICAL: Denies any bleeding or petechiae. GENITOURINARY: Denies any burning micturition, frequency, or urgency. MUSCULOSKELETAL/RHEUMATOLOGICAL: Denies any joint pain, swelling, or any muscle pain. ENDOCRINE: Denies any polyuria or polydipsia. The rest of the 14-point review of systems is negative. Past Medical History Past Medical History: Coronary Artery Disease (CAD), COPD, Hypertension Additional Past Medical History / Comment(s): chf History of Any Multi-Drug Resistant Organisms: None Reported Past Surgical History: No Surgical Hx Reported Past Psychological History: No Psychological Hx Reported Past Alcohol Use History: None Reported Past Drug Use History: None Reported - Past Family History Father Family Medical History: Coronary Artery Disease (CAD) Mother Family Medical History: Coronary Artery Disease (CAD) Medications and Allergies Home Medications Medication Instructions Recorded Confirmed Type Ipratropium-Albuterol Nebulize 3 ml INHALATION RT-QID 02/03/19 10/07/22 History [Duoneb 0.5 mg-3 mg/3 ml Soln] Budesonide Nebulizer 1 vial INHALATION RT-BID 10/07/22 10/07/22 History Solution(Unknown Dose) Bumetanide [BUMEX] 0.5 mg PO DAILY 10/07/22 10/07/22 History Allergies Allergy/AdvReac Type Severity Reaction Status Date / Time bacitracin Allergy Unknown Verified 10/07/22 17:24 [From Neosporin ([id number])] neomycin Allergy Unknown Verified 10/07/22 17:24 [From Neosporin ([id number])] polymyxin B Allergy Unknown Verified 10/07/22 17:24 [From Neosporin ([id number])] Physical Exam Vitals: Vital Signs Temp Pulse Resp BP Pulse Ox FiO2 10/08/22 07:59 35 10/08/22 06:30 98 22 93/62 96 10/08/22 06:00 101.9 F H 100 22 95/66 96 35 10/08/22 05:30 94 22 97/63 96 10/08/22 05:00 101.7 F H 98 22 92/58 95 35 10/08/22 04:30 98 23 95 10/08/22 04:00 102.7 F H 98 22 97/57 95 35 10/08/22 03:57 35 10/08/22 03:30 105 H 22 90/63 96 10/08/22 03:16 35 10/08/22 03:00 94 22 95/64 96 35 10/08/22 02:35 93 22 96 10/08/22 02:00 101 H 22 100/62 97 35 10/08/22 01:30 103 H 22 94/65 98 10/08/22 01:00 104 H 22 94/65 99 35 10/08/22 00:30 105 H 22 103/67 98 10/08/22 00:00 108 H 22 104/66 99 35 10/07/22 23:35 35 10/07/22 23:30 101 H 22 110/67 93 L 10/07/22 23:00 95 22 101/57 96 35 10/07/22 22:30 99 22 104/53 97 35 10/07/22 22:00 98.4 F 104 H 22 100/54 96 35 10/07/22 21:17 102 H 18 102/62 100 10/07/22 20:52 105 H 18 100/59 100 10/07/22 20:50 35 10/07/22 20:20 112 H 16 124/63 100 10/07/22 20:11 50 10/07/22 20:10 109 H 16 124/63 100 10/07/22 20:06 50 10/07/22 20:00 102 H 36 H 168/72 99 10/07/22 19:50 96 20 168/72 87 L 10/07/22 19:40 89 18 168/72 97 10/07/22 19:30 89 19 167/81 95 10/07/22 18:59 87 20 164/78 95 10/07/22 18:43 50 10/07/22 18:34 89 19 165/71 100 10/07/22 17:59 108 H 10/07/22 17:42 103 H 10/07/22 14:26 98.4 F 100 24 158/64 95 Intake and Output 10/07/22 10/08/22 10/08/22 22:59 06:59 14:59 Intake Total 132.348 371.912 10 Output Total 0 140 10 Balance 132.348 231.912 0 Intake: IV 120 330 10 0.9% @ KVO 20 80 10 Azithromycin 500 mg In 250 Sodium Chloride 0.9% 250 ml @ 250 mls/hr IVPB HS [facility] Rx#:[id number] levETIRAcetam IV 1,500 mg 100 In Saline 1 100ml.bag @ 400 mls/hr IVPB ONCE ONE Rx#:[id number] Intake, IV Titration 12.348 41.912 Amount propofoL 1,000 mg In 12.348 41.912 Empty Bag 1 bag @ 15 MCG/ KG/MIN 6.736 mls/hr IV . [id number] [facility] Rx#:[id number] Output: Urine 0 140 10 Other: Weight 74.843 kg 76.3 kg General appearance: alert, in no apparent distress Head exam: Present: atraumatic, normocephalic Eye exam: Present: normal appearance. Absent: scleral icterus, conjunctival injection Neck exam: Present: normal inspection Respiratory exam: Present: respiratory distress (Mild tachypnea), wheezes, accessory muscle use, decreased breath sounds, prolonged expiratory. Absent: rales, rhonchi, stridor, chest wall tenderness Cardiovascular Exam: Present: regular rate, normal rhythm, normal heart sounds. Absent: systolic murmur, diastolic murmur, rubs, gallop GI/Abdominal exam: Present: soft. Absent: distended, tenderness, guarding, rebound, rigid, mass Extremities exam: Present: normal inspection, normal capillary refill. Absent: pedal edema, calf tenderness Back exam: Present: normal inspection. Absent: CVA tenderness (R), CVA tenderness (L) Neurological exam: Present: alert Skin exam: Present: warm, dry, intact, normal color. Absent: rash Results CBC & Chem 7: 10/08/22 03:40 10/08/22 17:22 Labs: Abnormal Lab Results - Last 24 Hours (Table) 10/07/22 10/07/22 10/07/22 Range/Units 15:47 15:47 16:30 WBC 3.3 L (3.8-10.6) k/uL RBC 4.17 L (4.30-5.90) m/uL Hgb (13.0-17.5) gm/dL Hct (39.0-53.0) % MCV 101.3 H (80.0-100.0) fL Plt Count 132 L (150-450) k/uL Lymphocytes # 0.4 L (1.0-4.8) k/uL D-Dimer 0.74 H (<0.60) mg/L FEU ABG pH (7.35-7.45) ABG pCO2 (35-45) mmHg ABG pO2 (83-108) mmHg ABG HCO3 (21-25) mmol/L ABG Total CO2 (19-24) mmol/L ABG O2 Saturation (94-97) % VBG pH (7.31-7.41) VBG pCO2 (37-51) mmHg VBG HCO3 (24-28) mmol/L Chloride 87 L (98-107) mmol/L Carbon Dioxide 50 H* (22-30) mmol/L BUN 22 H (9-20) mg/dL Creatinine 0.44 L (0.66-1.25) mg/dL Glucose 107 H (74-99) mg/dL POC Glucose (mg/dL) (70-110) mg/dL Total Protein (6.3-8.2) g/dL 10/07/22 10/07/22 10/07/22 Range/Units 18:45 19:25 20:40 WBC (3.8-10.6) k/uL RBC (4.30-5.90) m/uL Hgb (13.0-17.5) gm/dL Hct (39.0-53.0) % MCV (80.0-100.0) fL Plt Count (150-450) k/uL Lymphocytes # (1.0-4.8) k/uL D-Dimer (<0.60) mg/L FEU ABG pH 7.10 L* 7.30 L (7.35-7.45) ABG pCO2 >120 H* 99 H* (35-45) mmHg ABG pO2 75 L 172 H (83-108) mmHg ABG HCO3 49 H* (21-25) mmol/L ABG Total CO2 52 H (19-24) mmol/L ABG O2 Saturation 92.0 L 99.9 H (94-97) % VBG pH 7.26 L (7.31-7.41) VBG pCO2 107 H* (37-51) mmHg VBG HCO3 47 H (24-28) mmol/L Chloride (98-107) mmol/L Carbon Dioxide (22-30) mmol/L BUN (9-20) mg/dL Creatinine (0.66-1.25) mg/dL Glucose (74-99) mg/dL POC Glucose (mg/dL) (70-110) mg/dL Total Protein (6.3-8.2) g/dL 10/07/22 10/07/22 10/07/22 Range/Units 21:05 21:05 21:27 WBC (3.8-10.6) k/uL RBC 3.97 L (4.30-5.90) m/uL Hgb 12.5 L (13.0-17.5) gm/dL Hct (39.0-53.0) % MCV 101.1 H (80.0-100.0) fL Plt Count 118 L (150-450) k/uL Lymphocytes # 0.2 L (1.0-4.8) k/uL D-Dimer (<0.60) mg/L FEU ABG pH (7.35-7.45) ABG pCO2 (35-45) mmHg ABG pO2 (83-108) mmHg ABG HCO3 (21-25) mmol/L ABG Total CO2 (19-24) mmol/L ABG O2 Saturation (94-97) % VBG pH (7.31-7.41) VBG pCO2 (37-51) mmHg VBG HCO3 (24-28) mmol/L Chloride 89 L (98-107) mmol/L Carbon Dioxide 46 H* (22-30) mmol/L BUN 25 H (9-20) mg/dL Creatinine 0.46 L (0.66-1.25) mg/dL Glucose 135 H (74-99) mg/dL POC Glucose (mg/dL) 128 H (70-110) mg/dL Total Protein 6.1 L (6.3-8.2) g/dL 10/07/22 10/08/22 10/08/22 Range/Units 23:32 03:40 03:40 WBC 2.8 L (3.8-10.6) k/uL RBC 3.68 L (4.30-5.90) m/uL Hgb 11.7 L (13.0-17.5) gm/dL Hct 36.6 L (39.0-53.0) % MCV (80.0-100.0) fL Plt Count (150-450) k/uL Lymphocytes # 0.3 L (1.0-4.8) k/uL D-Dimer (<0.60) mg/L FEU ABG pH (7.35-7.45) ABG pCO2 (35-45) mmHg ABG pO2 (83-108) mmHg ABG HCO3 (21-25) mmol/L ABG Total CO2 (19-24) mmol/L ABG O2 Saturation (94-97) % VBG pH (7.31-7.41) VBG pCO2 (37-51) mmHg VBG HCO3 (24-28) mmol/L Chloride 89 L (98-107) mmol/L Carbon Dioxide 43 H* (22-30) mmol/L BUN 30 H (9-20) mg/dL Creatinine 0.58 L (0.66-1.25) mg/dL Glucose 132 H (74-99) mg/dL POC Glucose (mg/dL) 141 H (70-110) mg/dL Total Protein (6.3-8.2) g/dL 10/08/22 10/08/22 Range/Units 05:27 05:44 WBC (3.8-10.6) k/uL RBC (4.30-5.90) m/uL Hgb (13.0-17.5) gm/dL Hct (39.0-53.0) % MCV (80.0-100.0) fL Plt Count (150-450) k/uL Lymphocytes # (1.0-4.8) k/uL D-Dimer (<0.60) mg/L FEU ABG pH 7.51 H (7.35-7.45) ABG pCO2 58 H (35-45) mmHg ABG pO2 (83-108) mmHg ABG HCO3 46 H* (21-25) mmol/L ABG Total CO2 48 H (19-24) mmol/L ABG O2 Saturation 98.4 H (94-97) % VBG pH (7.31-7.41) VBG pCO2 (37-51) mmHg VBG HCO3 (24-28) mmol/L Chloride (98-107) mmol/L Carbon Dioxide (22-30) mmol/L BUN (9-20) mg/dL Creatinine (0.66-1.25) mg/dL Glucose (74-99) mg/dL POC Glucose (mg/dL) 138 H (70-110) mg/dL Total Protein (6.3-8.2) g/dL Assessment and Plan Assessment: 1. Acute on chronic hypoxic and hypercapnic respiratory failure requiring intubation and mechanical ventilation, failed initial BiPAP treatment in the ER. - Patient remains intubated and mechanically ventilated; intensive care service on board - Patient has been started on nutritional support with antral feeding 2. Severe underlying COPD/emphysema; in acute exacerbation - Patient remains on bronchodilator nebulizer therapy along with IV steroids; empiric treatment with IV azithromycin 3. Underlying coronary artery disease; stable at baseline 4. Benign essential hypertension; patient takes Bumex 0.5 mg daily; currently not on any antihypertensive therapy DVT prophylaxis; SCDs/subcu heparin CODE STATUS; DO NOT RESUSCITATE
[2022-10-08] MEDS: AZITHROMYCIN 500 MG in SODIUM CHLORIDE 0.9% 250 ML IVPB SCH (20:29)
[2022-10-08] MEDS: levETIRAcetam IV 750 MG in SODIUM CHLORIDE 0.9% 100 ML IVPB SCH (20:30)
[2022-10-08 23:33] LABS: Glucose,Whole Blood 194 mg/dL (70-110)
[2022-10-09 04:21] LABS: African American GFR (CKD) >90 (>60 ml/min/1.73 sqM); Blood Urea Nitrogen 30 mg/dL (9-20); Calcium 8.2 mg/dL (8.4-10.2); Chloride 95 mmol/L (98-107); Glucose 182 mg/dL (74-99); Magnesium 2.2 mg/dL (1.6-2.3); Non-African American GFR(CKD) 85 (>60 ml/min/1.73 sqM); Potassium 3.8 mmol/L (3.5-5.1); Sodium 136 mmol/L (137-145)
[2022-10-09 04:27] LABS: Anion Gap 4 mmol/L; Carbon Dioxide 37 mmol/L (22-30)
[2022-10-09 04:46] LABS: Basophils % (A) 0 %; Eosinophils % (A) 0 %; HCT 37.3 % (39.0-53.0); HGB 11.8 gm/dL (13.0-17.5); Lymphocytes # (A) 0.3 k/uL (1.0-4.8); Lymphocytes % (A) 4 %; MCH 31.1 pg (25.0-35.0); MCHC 31.5 g/dL (31.0-37.0); MCV 98.8 fL (80.0-100.0); Mean Platelet Volume 9.2; Monocytes # (A) 0.3 k/uL (0-1.0); Monocytes % (A) 4 %; Neutrophils # (A) 7.1 k/uL (1.3-7.7); Neutrophils % (A) 91 %; Platelet Count 215 k/uL (150-450); RBC 3.78 m/uL (4.30-5.90); RDW 12.8 % (11.5-15.5); WBC 7.8 k/uL (3.8-10.6)
[2022-10-09 05:18] LABS: ABG Base Excess 14.6 mmol/L; ABG Oxygen Saturation 97.4 % (94-97); ABG PCO2 66 mmHg (35-45); ABG PH 7.39 (7.35-7.45); ABG PO2 90 mmHg (83-108); ABG TCO2 42 mmol/L (19-24)
[2022-10-09] MEDS: SODIUM CHLORIDE 0.9% 1,000 ML IV SCH ×2 (05:34→17:42)
[2022-10-09] MEDS: methylPREDNISolone SOD SUCCI 125 MG/2 ML VIAL IV SCH ×4 (05:36→23:28)
[2022-10-09 05:42] LABS: Glucose,Whole Blood 167 mg/dL (70-110)
[2022-10-09] MEDS ORDERED: POTASSIUM BICARBONATE/CIT AC 20 MEQ TABLET.EFF NG-TUBE SCH (06:00)
[2022-10-09 06:11] LABS: ABG HCO3 40 mmol/L (21-25); Allen Test Performed? no
--- NOTE | 2022-10-09 07:38 | XR ---
EXAMINATION TYPE: XR chest 1V portable DATE OF EXAM: 10/09/2022 Comparison: Clinical History: Tube placement Findings: ET tube satisfactory. NG tube courses below the diaphragm. Right IJ CVC tip at the mid to lower SVC. Heart normal size. Marked hyperinflation with biapical pleuroparenchymal scarring and scattered mild interstitial prominence is redemonstrated. No consolidation or pleural effusion. Impression: Redemonstrated COPD with marked emphysema and biapical pleural-parenchymal scarring.
[2022-10-09] MEDS: SYMBICORT 160-4.5 MCG INHALER INHALATION SCH (08:00)
[2022-10-09] MEDS: PANTOPRAZOLE 40 MG/10 ML VIAL IVP SCH (08:26)
[2022-10-09] MEDS: CHLORHEXIDINE GLUCONATE 15 ML CUP MUCOUS MEM SCH ×2 (08:26→20:31)
[2022-10-09] MEDS: HEPARIN SODIUM,PORCINE/PF 5,000 UNIT/0.5 ML SYRINGE SQ SCH ×2 (08:26→20:31)
[2022-10-09] MEDS: levETIRAcetam IV 750 MG in SODIUM CHLORIDE 0.9% 100 ML IVPB SCH (08:27)
[2022-10-09] MEDS: ALBUTEROL NEBULIZED 2.5 MG/3 ML INHALATION SCH ×4 (08:40→21:47)
[2022-10-09] MEDS: IPRATROPIUM 0.5 MG/2.5 ML NEBU INHALATION SCH ×4 (08:40→21:48)
[2022-10-09] MEDS ORDERED: CYANOCOBALAMIN 1,000 MCG/ML 1 ML VIAL IM ONE (10:01)
[2022-10-09 10:16] LABS: ABG HCO3 39 mmol/L (21-25); ABG Oxygen Saturation 85.8 % (94-97); ABG PH 7.31 (7.35-7.45); ABG TCO2 42 mmol/L (19-24)
[2022-10-09 10:20] LABS: ABG PCO2 78 mmHg (35-45); ABG PO2 57 mmHg (83-108); Allen Test Performed? no
[2022-10-09 10:51] LABS: ABG Base Excess 13.1 mmol/L; ABG PH 7.28 (7.35-7.45); ABG TCO2 43 mmol/L (19-24)
[2022-10-09 10:53] LABS: ABG PCO2 85 mmHg (35-45)
[2022-10-09 10:54] LABS: ABG HCO3 40 mmol/L (21-25); ABG PO2 59 mmHg (83-108); Allen Test Performed? no
--- NOTE | 2022-10-09 11:16 | P.PN ---
Subjective Progress Note Date: 10/09/22 The patient seen at bedside and according to the nurse she's doing drastically much better. He continues to be intubated on a ventilator. His IV prophylaxis been nonstop. His tremor jerking has drastically improved according to the nurse. Patient states that he's doing better and denies of any headache, vomiting. Denies of any focal weakness. Yesterday the patient had a fever as high as 102.7 and has resolved. No further fevers since yesterday around 6 AM. Objective - Vital Signs Vital signs: Vital Signs Temp 98.9 F 10/09/22 08:00 Pulse 96 10/09/22 10:15 Resp 18 10/09/22 10:15 BP 133/103 10/08/22 20:45 Pulse Ox 92 L 10/09/22 10:15 FiO2 35 10/09/22 10:56 Intake & Output 10/08/22 10/09/22 10/09/22 18:59 06:59 18:59 Intake Total 6806.026 2647.133 424.535 Output Total 915 610 200 Balance 610.674 964.133 224.535 Weight 77.7 kg Intake: IV 1405 1285 335 0.9 bolus 1000 0.9% @ KVO 80 110 10 Azithromycin 500 mg In 250 Sodium Chloride 0.9% 250 ml @ 250 mls/hr IVPB HS [facility] Rx#:[id number] Sodium Chloride 0.9% 1, 225 825 225 000 ml @ 75 mls/hr IV . [id number] [facility] Rx#:[id number] levETIRAcetam IV 1,500 mg 100 100 In Saline 1 100ml.bag @ 400 mls/hr IVPB ONCE ONE Rx#:[id number] levETIRAcetam IV 750 mg 100 In Sodium Chloride 0.9% 100 ml @ 400 mls/hr IVPB Q12HR [facility] Rx#:[id number] Intake, IV Titration 100.674 39.133 79.535 Amount Norepinephrine 32 mg In 0.674 5.902 13.41 Sodium Chloride 0.9% 218 ml @ 0.03 MCG/KG/MIN 1. 073 mls/hr IV .Q24H [facility] Rx#:[id number] propofoL 1,000 mg In 100.000 33.231 66.125 Empty Bag 1 bag @ 15 MCG/ KG/MIN 6.736 mls/hr IV . [id number] [facility] Rx#:[id number] Tube Feeding 20 110 10 Other 140 Output: Urine 915 610 200 ABP, PAP, CO, CI - Last Documented Arterial Blood Pressure 128/43 - Exam GENERAL: The patient is lying in bed and is not in acute distress. HENT: Supple neck LUNG: Intubated on ventilator. NEUROLOGICAL: IV Propofol is held. Higher mental function: The patient is awake, alert, oriented to self. He is following simple commands. No neglect. No aphasia from limited language. Cranial nerves: The pupils are round, equal, 2mm and reactive to light . Visual wu are full to confrontation throughout. Extraocular movement is intact no nystagmus is noted. The facial strength is normal throughout. Hearing is normal bilaterally to hand rub. Motor: The strength is lifting all extremities above gravity without focality. Normal tone and bulk. No spontanoeous movement. at baseline. No jerks or tremor. Some of the workup during his hospital visit consisted of: Carbon dioxide is 50 on presentation, chlorides 87, initial serum glucose is 107. The calcium, magnesium, AST and ALT is within normal limits Lainez virus is not detected Folate is 24.7 Vitamin B12 is 241 within normal supposed to be between 200-944. TSH is 0.828 Ammonia level is 15. Initial ABG is the pH of 7.1, pCO2 is more than 120, oxygen is 75 and the oxygen saturation is 92. FiO2 is 50%. CT of the head is reported as ethmoid and left sided maxillary sinusitis. No acute intracranial abnormality. I personally reviewed the CT of the head and there is no acute subacute ischemia there is no intracranial hemorrhage. Chest x-ray is reported as COPD changes with the patchy right mid lung airspace opacity which may represent infiltrate versus atelectasis/scarring. Routine EEG is abnormal. The back also suggestive of moderate encephalopathy likely due to toxic metabolic derangement. Otherwise there is no focal slowing, epileptiform discharges or seizure on the EEG. - Labs CBC & Chem 7: 10/09/22 04:02 10/09/22 04:02 Labs: Abnormal Lab Results - Last 24 Hours (Table) 10/08/22 10/08/22 10/08/22 Range/Units 11:31 17:22 17:55 RBC (4.30-5.90) m/uL Hgb (13.0-17.5) gm/dL Hct (39.0-53.0) % Lymphocytes # (1.0-4.8) k/uL ABG pH (7.35-7.45) ABG pCO2 (35-45) mmHg ABG pO2 (83-108) mmHg ABG HCO3 (21-25) mmol/L ABG Total CO2 (19-24) mmol/L ABG O2 Saturation (94-97) % Sodium (137-145) mmol/L Chloride 92 L (98-107) mmol/L Carbon Dioxide 38 H (22-30) mmol/L BUN 31 H (9-20) mg/dL Glucose 172 H (74-99) mg/dL POC Glucose (mg/dL) 144 H 156 H (70-110) mg/dL Calcium 8.2 L (8.4-10.2) mg/dL 10/08/22 10/09/22 10/09/22 Range/Units 23:32 04:02 04:02 RBC 3.78 L (4.30-5.90) m/uL Hgb 11.8 L (13.0-17.5) gm/dL Hct 37.3 L (39.0-53.0) % Lymphocytes # 0.3 L (1.0-4.8) k/uL ABG pH (7.35-7.45) ABG pCO2 (35-45) mmHg ABG pO2 (83-108) mmHg ABG HCO3 (21-25) mmol/L ABG Total CO2 (19-24) mmol/L ABG O2 Saturation (94-97) % Sodium 136 L (137-145) mmol/L Chloride 95 L (98-107) mmol/L Carbon Dioxide 37 H (22-30) mmol/L BUN 30 H (9-20) mg/dL Glucose 182 H (74-99) mg/dL POC Glucose (mg/dL) 194 H (70-110) mg/dL Calcium 8.2 L (8.4-10.2) mg/dL 10/09/22 10/09/22 10/09/22 Range/Units 05:15 05:39 10:14 RBC (4.30-5.90) m/uL Hgb (13.0-17.5) gm/dL Hct (39.0-53.0) % Lymphocytes # (1.0-4.8) k/uL ABG pH 7.31 L (7.35-7.45) ABG pCO2 66 H 78 H* (35-45) mmHg ABG pO2 57 L* (83-108) mmHg ABG HCO3 40 H* 39 H (21-25) mmol/L ABG Total CO2 42 H 42 H (19-24) mmol/L ABG O2 Saturation 97.4 H 85.8 L (94-97) % Sodium (137-145) mmol/L Chloride (98-107) mmol/L Carbon Dioxide (22-30) mmol/L BUN (9-20) mg/dL Glucose (74-99) mg/dL POC Glucose (mg/dL) 167 H (70-110) mg/dL Calcium (8.4-10.2) mg/dL 10/09/22 Range/Units 10:50 RBC (4.30-5.90) m/uL Hgb (13.0-17.5) gm/dL Hct (39.0-53.0) % Lymphocytes # (1.0-4.8) k/uL ABG pH 7.28 L (7.35-7.45) ABG pCO2 85 H* (35-45) mmHg ABG pO2 59 L* (83-108) mmHg ABG HCO3 40 H* (21-25) mmol/L ABG Total CO2 43 H (19-24) mmol/L ABG O2 Saturation 86.0 L (94-97) % Sodium (137-145) mmol/L Chloride (98-107) mmol/L Carbon Dioxide (22-30) mmol/L BUN (9-20) mg/dL Glucose (74-99) mg/dL POC Glucose (mg/dL) (70-110) mg/dL Calcium (8.4-10.2) mg/dL Microbiology - Last 24 Hours (Table) 10/07/22 21:27 Gram Stain - Preliminary Sputum Sputum Culture - Preliminary Assessment and Plan Assessment: This is a 82-year-old gentleman with history of COPD that's been having shortness of breath with a past 2-3 weeks. Tremor/jerking of extremities seems more myoclonic jerk due to hypercapnia---im proved. No seizure on EEG. Altered mental status due to hypercapnic and hypoxic encephalopathy. Also medication effect (Propofol)--improved. Transient Pyrexia of unknown etiology. Patient denies of headache and currently mentation has improved. Has positive gram positive bacilli on sputum culture. I feel unlikely meningoencephalitis since drastic improvement. Very low normal Vitamin B12 (241) Acute COPD exacerbation. History of COPD on oxygen at home Plan: I have decreased Keppra from 750mg bid to 500mg bid (since no seizure on EEG) and clinically does not appear seizure. I recommend to continue to taper keppra until off since unlikely seizure during this admission. Consider MRI Brain if patient continues to have any neurological issues once extubated. For his low normal Vitamin B12, started on Vitamin B12 1000mcg IM for two days then PO after that. For his transient pyrexia of unknown etiology. Patient denies of headache and currently mentation has improved. Has positive gram positive bacilli on sputum culture. I feel unlikely meningoencephalitis since drastic improvement. If has any further neurological issues recommend pursuing lumbar puncture. We'll defer the rest of the medical measure the primary team Patient condition is guarded. The plan was discussed with the patient and his nurse Dr. Foss will start neurology service tomorrow A.M. Time with Patient: Less than 30
[2022-10-09 11:52] LABS: Glucose,Whole Blood 157 mg/dL (70-110)
--- NOTE | 2022-10-09 13:40 | P.PN ---
Subjective Progress Note Date: 10/09/22 Principal diagnosis: Acute on chronic hypoxic and hypercapnic respiratory failure secondary to severe COPD and acute exacerbation This is an 82-year-old white male with known history of severe COPD, O2 dependent, normally on 3 L nasal cannula at home. Patient presents to the ER for evaluation of chronic shortness of breath, and has been getting worse over the last 3 weeks. While in the ER, the patient was developing worsening respiratory failure, and I believe he was given a trial of BiPAP according to the note by the ER physician. Intravenous blood gases done showed a pCO2 of 107 and a pH of 7.26. FEN another ABG was done which was just before the patient was intubated showed a pO2 of 75 pCO2 of more than 120 and a pH of 7.10. Apparently the patient had a sudden deteriorating course while in the ER with worsening hypercapnia. Then another ABG was done post intubation showed a pO2 of 172 pCO2 of 99 pH of 7.30. I was notified about this patient after he was i ntubated, accepted the patient to the ICU and recommended some changes in the ventilator settings. I saw him this morning, ABG this morning showed a pO2 of 83 pCO2 58 pH of 7.51 and I felt the patient is being hyperventilated I cut down his rate from 22 down to 18. Obviously the patient has a baseline pCO2 most likely in the high 60s or 70s. Patient is now on assist control rate of 18 tidal volume 450 FiO2 35% PEEP of 5 and he is on IV fluid at KVO, it did receive Diamox last night. He had a temp of 102 last night, and we will start enteral feeding via orogastric tube. Chest x-ray showed no evidence of infiltrate, it is mostly consistent with COPD/emphysema. After evaluating the patient this morning went ahead and placed a right IJ triple-lumen cath and a right radial arterial line for monitoring. Looking at the note from the ER physician apparently he discussed the CODE STATUS with the family family agreed to intubation although the patient was DO NOT RESUSCITATE on previous admissions. We need to clarify this CODE STATUS with the family at bedside. Labs today showed WBC count of 2.8 hemoglobin 11.7, basic metabolic profile is normal except for elevated bicarb of 43 renal profile is normal, screening for COVID-19 infection was negative Reevaluated today on 10/09/2022, patient remains in the ICU intubated and mechanically ventilated, he is on assist control rate of 18 tidal volume 450 FiO2 35% PEEP of 5 ABG showed a pO2 of 90 pCO2 66 pH of 7.39, hence the patient was kept on the same vent settings. He is on propofol at 15 mcg/kg/m norepinephrine at 0.02 mcg/kg/m IV fluids 75 mL per hour and is also on vital HPF 10 mL per hour. Patient was awakened, and his weaning parameters were checked, they were borderline, patient was given about an hour trial of pressure support and CPAP, however ABG after 1 hour showed significant rise in his pCO2 up to 85, his pH was 7.28, and his pO2 was 59. Hence I recommended that the patient goes back on mechanical ventilation, and his Nif was only -15. Obviously the patient is not quite ready for weaning and extubation at this point. WBC count is 7.8 hemoglobin is 11.8. Electrolytes are normal bicarb is 37 renal profile is normal. Chest x-ray showed no evidence of acute process, evidence of COPD emphysema and biapical pleural parenchymal scarring noted Objective - Vital Signs Vital signs: Vital Signs Temp 99.0 F 10/09/22 12:00 Pulse 89 10/09/22 13:30 Resp 18 10/09/22 13:30 BP 133/103 10/08/22 20:45 Pulse Ox 99 10/09/22 13:30 FiO2 35 10/09/22 12:00 Intake & Output 10/08/22 10/09/22 10/09/22 18:59 06:59 18:59 Intake Total 6026.183 3039.133 794.535 Output Total 915 610 450 Balance 610.674 964.133 344.535 Weight 77.7 kg Intake: IV 1405 1285 635 0.9 bolus 1000 0.9% @ KVO 80 110 10 Azithromycin 500 mg In 250 Sodium Chloride 0.9% 250 ml @ 250 mls/hr IVPB HS [facility] Rx#:[id number] Sodium Chloride 0.9% 1, 225 825 525 000 ml @ 75 mls/hr IV . [id number] [facility] Rx#:[id number] levETIRAcetam IV 1,500 mg 100 100 In Saline 1 100ml.bag @ 400 mls/hr IVPB ONCE ONE Rx#:[id number] levETIRAcetam IV 750 mg 100 In Sodium Chloride 0.9% 100 ml @ 400 mls/hr IVPB Q12HR [facility] Rx#:[id number] Intake, IV Titration 100.674 39.133 79.535 Amount Norepinephrine 32 mg In 0.674 5.902 13.41 Sodium Chloride 0.9% 218 ml @ 0.03 MCG/KG/MIN 1. 073 mls/hr IV .Q24H [facility] Rx#:[id number] propofoL 1,000 mg In 100.000 33.231 66.125 Empty Bag 1 bag @ 15 MCG/ KG/MIN 6.736 mls/hr IV . [id number] [facility] Rx#:[id number] Tube Feeding 20 110 50 Other 140 30 Output: Urine 915 610 450 ABP, PAP, CO, CI - Last Documented Arterial Blood Pressure 114/43 - Exam Physical Exam: Revealed 82-year-old white male in no distress sedated intubated mechanically ventilated Head: Atraumatic, normocephalic. Endotracheal tube and orogastric tube are intact. HEENT:[Neck is supple.] [No neck masses.] [No thyromegaly.] [No JVD.] Dry mucous membranes. Chest: [Symmetrical chest expansion, diminished breath sound bilaterally throughout. No rhonchi no wheezes Cardiac Exam: [Normal S1 and S2, no S3 gallop, no murmur.] Abdomen: [Soft, nontender, no megaly, no rebound, no guarding, normal bowel sounds.] Extremities: [No clubbing, no edema, no cyanosis.] Neurological Exam: Off propofol, patient was awakened, he followed very simple instructions seemed appropriate. Psychiatric: Normal mood, affect and seems to be appropriate mental status. This is off propofol. Skin: No rashes. - Labs CBC & Chem 7: 10/09/22 04:02 10/09/22 04:02 Labs: Abnormal Lab Results - Last 24 Hours (Table) 10/08/22 10/08/22 10/08/22 Range/Units 17:22 17:55 23:32 RBC (4.30-5.90) m/uL Hgb (13.0-17.5) gm/dL Hct (39.0-53.0) % Lymphocytes # (1.0-4.8) k/uL ABG pH (7.35-7.45) ABG pCO2 (35-45) mmHg ABG pO2 (83-108) mmHg ABG HCO3 (21-25) mmol/L ABG Total CO2 (19-24) mmol/L ABG O2 Saturation (94-97) % Sodium (137-145) mmol/L Chloride 92 L (98-107) mmol/L Carbon Dioxide 38 H (22-30) mmol/L BUN 31 H (9-20) mg/dL Glucose 172 H (74-99) mg/dL POC Glucose (mg/dL) 156 H 194 H (70-110) mg/dL Calcium 8.2 L (8.4-10.2) mg/dL 10/09/22 10/09/22 10/09/22 Range/Units 04:02 04:02 05:15 RBC 3.78 L (4.30-5.90) m/uL Hgb 11.8 L (13.0-17.5) gm/dL Hct 37.3 L (39.0-53.0) % Lymphocytes # 0.3 L (1.0-4.8) k/uL ABG pH (7.35-7.45) ABG pCO2 66 H (35-45) mmHg ABG pO2 (83-108) mmHg ABG HCO3 40 H* (21-25) mmol/L ABG Total CO2 42 H (19-24) mmol/L ABG O2 Saturation 97.4 H (94-97) % Sodium 136 L (137-145) mmol/L Chloride 95 L (98-107) mmol/L Carbon Dioxide 37 H (22-30) mmol/L BUN 30 H (9-20) mg/dL Glucose 182 H (74-99) mg/dL POC Glucose (mg/dL) (70-110) mg/dL Calcium 8.2 L (8.4-10.2) mg/dL 10/09/22 10/09/22 10/09/22 Range/Units 05:39 10:14 10:50 RBC (4.30-5.90) m/uL Hgb (13.0-17.5) gm/dL Hct (39.0-53.0) % Lymphocytes # (1.0-4.8) k/uL ABG pH 7.31 L 7.28 L (7.35-7.45) ABG pCO2 78 H* 85 H* (35-45) mmHg ABG pO2 57 L* 59 L* (83-108) mmHg ABG HCO3 39 H 40 H* (21-25) mmol/L ABG Total CO2 42 H 43 H (19-24) mmol/L ABG O2 Saturation 85.8 L 86.0 L (94-97) % Sodium (137-145) mmol/L Chloride (98-107) mmol/L Carbon Dioxide (22-30) mmol/L BUN (9-20) mg/dL Glucose (74-99) mg/dL POC Glucose (mg/dL) 167 H (70-110) mg/dL Calcium (8.4-10.2) mg/dL 10/09/22 Range/Units 11:51 RBC (4.30-5.90) m/uL Hgb (13.0-17.5) gm/dL Hct (39.0-53.0) % Lymphocytes # (1.0-4.8) k/uL ABG pH (7.35-7.45) ABG pCO2 (35-45) mmHg ABG pO2 (83-108) mmHg ABG HCO3 (21-25) mmol/L ABG Total CO2 (19-24) mmol/L ABG O2 Saturation (94-97) % Sodium (137-145) mmol/L Chloride (98-107) mmol/L Carbon Dioxide (22-30) mmol/L BUN (9-20) mg/dL Glucose (74-99) mg/dL POC Glucose (mg/dL) 157 H (70-110) mg/dL Calcium (8.4-10.2) mg/dL Microbiology - Last 24 Hours (Table) 10/07/22 21:27 Gram Stain - Preliminary Sputum Sputum Culture - Preliminary Assessment and Plan Assessment: Impression: Acute on chronic hypoxic and hypercapnic respiratory failure requiring intubation and mechanical ventilation, failed initial BiPAP treatment in the ER. Severe underlying COPD/emphysema Chronic hypoxic and hypercapnic respiratory failure Underlying coronary artery disease Benign essential hypertension Recommendation: Continue ventilatory support Continue bronchodilators Continue empiric antibiotics for now Continue GI and DVT prophylaxis Nutritional support/enteral feeding Check sputum cultures and blood cultures Patient failed a trial of weaning with pressure support of 10 and CPAP, he lasted one hour, however his ABG was poor and recommended no extubation. Prognosis is definitely poor and guarded Patient remains critically ill. Not ready for weaning at this point, We will readdress in the next 24-48 hours. Critical care time is over 30 minutes Time with Patient: Greater than 30
[2022-10-09 18:28] LABS: Glucose,Whole Blood 155 mg/dL (70-110)
[2022-10-09] MEDS: levETIRAcetam IV 500 MG in SODIUM CHLORIDE 0.9% 100 ML IVPB SCH (20:31)
[2022-10-09] MEDS: NOREPINEPHRINE 32 MG in SODIUM CHLORIDE 0.9% 218 ML IV SCH (20:31)
[2022-10-09] MEDS: AZITHROMYCIN 500 MG in SODIUM CHLORIDE 0.9% 250 ML IVPB SCH (20:31)
[2022-10-09 21:14] VITALS: BP 101/55
[2022-10-09] MEDS: BUDESONIDE 1 MG/2 ML NEBU INHALATION SCH (21:47)
[2022-10-09] MEDS: FORMOTEROL FUMARATE 20 MCG/2 ML NEBU INHALATION SCH (21:47)
[2022-10-09 23:08] LABS: Glucose,Whole Blood 137 mg/dL (70-110)
[2022-10-10 05:08] LABS: ABG Base Excess 9.6 mmol/L; ABG HCO3 35 mmol/L (21-25); ABG Oxygen Saturation 98.7 % (94-97); ABG PCO2 59 mmHg (35-45); ABG PH 7.38 (7.35-7.45); ABG PO2 108 mmHg (83-108); ABG TCO2 37 mmol/L (19-24); Allen Test Performed? Yes
[2022-10-10 05:54] LABS: HCT 34.2 % (39.0-53.0); HGB 11.2 gm/dL (13.0-17.5); MCH 32.5 pg (25.0-35.0); MCHC 32.8 g/dL (31.0-37.0); Mean Platelet Volume 9.4; Platelet Count 186 k/uL (150-450); RBC 3.45 m/uL (4.30-5.90); RDW 12.9 % (11.5-15.5); WBC 5.7 k/uL (3.8-10.6)
[2022-10-10 06:07] LABS: Glucose,Whole Blood 159 mg/dL (70-110)
[2022-10-10] MEDS: methylPREDNISolone SOD SUCCI 125 MG/2 ML VIAL IV SCH ×3 (06:18→18:16)
[2022-10-10] MEDS: SODIUM CHLORIDE 0.9% 1,000 ML IV SCH ×2 (06:18→20:33)
[2022-10-10 06:51] LABS: Potassium 3.4 mmol/L (3.5-5.1)
[2022-10-10 06:52] LABS: ALT 16 U/L (4-49); AST 18 U/L (17-59); African American GFR (CKD) >90 (>60 ml/min/1.73 sqM); Albumin 2.9 g/dL (3.5-5.0); Alkaline Phosphatase 60 U/L (38-126); Anion Gap 1 mmol/L; Blood Urea Nitrogen 26 mg/dL (9-20); Calcium 7.9 mg/dL (8.4-10.2); Carbon Dioxide 36 mmol/L (22-30); Chloride 100 mmol/L (98-107); Glucose 160 mg/dL (74-99); Non-African American GFR(CKD) 87 (>60 ml/min/1.73 sqM); Sodium 137 mmol/L (137-145); Total Bilirubin 0.3 mg/dL (0.2-1.3); Total Protein 5.1 g/dL (6.3-8.2)
--- NOTE | 2022-10-10 07:18 | XR ---
EXAMINATION TYPE: XR chest 1V portable DATE OF EXAM: 10/10/2022 CLINICAL HISTORY: Difficulty breathing progress study. TECHNIQUE: Single AP portable semiupright view of the chest is obtained. COMPARISON: Chest x-ray from one day earlier and older studies. FINDINGS: Stable endotracheal and orogastric tubes. Stable right internal jugular central venous cat heter. Background Chronic emphysematous change redemonstrated. No suspicious focal airspace opacity, pleural effusion, pneumothorax seen bilaterally. Cardiac silhouette size stable and within normal limits. Os seous structures are intact. IMPRESSION: Chronic emphysematous change without acute pulmonary process. No significant change from one day earlier.
[2022-10-10] MEDS: BUDESONIDE 1 MG/2 ML NEBU INHALATION SCH ×2 (08:01→21:20)
[2022-10-10] MEDS: FORMOTEROL FUMARATE 20 MCG/2 ML NEBU INHALATION SCH ×2 (08:01→21:21)
[2022-10-10] MEDS: ALBUTEROL NEBULIZED 2.5 MG/3 ML INHALATION SCH ×4 (08:02→21:20)
[2022-10-10] MEDS: IPRATROPIUM 0.5 MG/2.5 ML NEBU INHALATION SCH ×4 (08:02→21:20)
[2022-10-10] MEDS: POTASSIUM BICARBONATE/CIT AC 20 MEQ TABLET.EFF NG-TUBE SCH ×2 (08:20→12:02)
[2022-10-10] MEDS: levETIRAcetam IV 500 MG in SODIUM CHLORIDE 0.9% 100 ML IVPB SCH ×2 (08:20→20:32)
[2022-10-10] MEDS: HEPARIN SODIUM,PORCINE/PF 5,000 UNIT/0.5 ML SYRINGE SQ SCH ×2 (08:20→20:32)
[2022-10-10] MEDS: PANTOPRAZOLE 40 MG/10 ML VIAL IVP SCH (08:21)
[2022-10-10] MEDS: CHLORHEXIDINE GLUCONATE 15 ML CUP MUCOUS MEM SCH ×2 (08:21→20:32)
[2022-10-10] MEDS ORDERED: CYANOCOBALAMIN 1,000 MCG/ML 1 ML VIAL IM SCH (09:00)
--- NOTE | 2022-10-10 11:18 | P.PN ---
Subjective Progress Note Date: 10/10/22 Principal diagnosis: Respiratory failure. Acute on chronic hypoxic and hypercapnic respiratory failure secondary to severe COPD and acute exacerbation This is an 82-year-old white male with known history of severe COPD, O2 dependent, normally on 3 L nasal cannula at home. Patient presents to the ER for evaluation of chronic shortness of breath, and has been getting worse over the last 3 weeks. While in the ER, the patient was developing worsening respiratory failure, and I believe he was given a trial of BiPAP according to the note by the ER physician. Intravenous blood gases done showed a pCO2 of 107 and a pH of 7.26. FEN another ABG was done which was just before the patient was intubated showed a pO2 of 75 pCO2 of more than 120 and a pH of 7.10. Apparently the patient had a sudden deteriorating course while in the ER with worsening hypercapnia. Then another ABG was done post intubation showed a pO2 of 172 pCO2 of 99 pH of 7.30. I was notified about this patient after he was intubated, accepted the patient to the ICU and recommended some changes in the ventilator settings. I saw him this morning, ABG this morning showed a pO2 of 83 pCO2 58 pH of 7.51 and I felt the patient is being hyperventilated I cut down his rate from 22 down to 18. Obviously the patient has a baseline pCO2 most likely in the high 60s or 70s. Patient is now on assist control rate of 18 tidal volume 450 FiO2 35% PEEP of 5 and he is on IV fluid at KVO, it did receive Diamox last night. He had a temp of 102 last night, and we will start enteral feeding via orogastric tube. Chest x-ray showed no evidence of infiltrate, it is mostly consistent with COPD/emphysema. After evaluating the patient this morning went ahead and placed a right IJ triple-lumen cath and a right radial arterial line for monitoring. Looking at the note from the ER physician apparently he discussed the CODE STATUS with the family family agreed to intubation although the patient was DO NOT RESUSCITATE on previous admissions. We need to clarify this CODE STATUS with the family at bedside. Labs today showed WBC count of 2.8 hemoglobin 11.7, basic metabolic profile is normal except for elevated bicarb of 43 renal profile is normal, screening for COVID-19 infection was negative Reevaluated today on 10/09/2022, patient remains in the ICU intubated and mechanically ventilated, he is on assist control rate of 18 tidal volume 450 FiO2 35% PEEP of 5 ABG showed a pO2 of 90 pCO2 66 pH of 7.39, hence the patient was kept on the same vent settings. He is on propofol at 15 mcg/kg/m norepinephrine at 0.02 mcg/kg/m IV fluids 75 mL per hour and is also on vital HPF 10 mL per hour. Patient was awakened, and his weaning parameters were checked, they were borderline, patient was given about an hour trial of pressure support and CPAP, however ABG after 1 hour showed significant rise in his pCO2 up to 85, his pH was 7.28, and his pO2 was 59. Hence I recommended that the patient goes back on mechanical ventilation, and his Nif was only -15. Obviously the patient is not quite ready for weaning and extubation at this point. WBC count is 7.8 hemoglobin is 11.8. Electrolytes are normal bicarb is 37 renal profile is normal. Chest x-ray showed no evidence of acute process, evidence of COPD emphysema and biapical pleural parenchymal scarring noted Progress note dated 10/10/2022. 82-year-old white male who was admitted to the hospital on October 07, with COPD exacerbation. The patient was intubated on the same day. The patient remains on the mechanical ventilator. He is on volume assist control, rate 18, tidal volume 450, FiO2 35%, and PEEP of 5. Arterial blood gases show pO2 of 108, pCO2 59, pH is 7.38. His peak airway pressure is 40. His plateau pressure is 18. This suggests a high amount of airways resistance. The patient's on norepinephrine, which is on hold currently. Propofol at 30 mcg/kg/m, saline at 75 mL an hour, and vital high protein at 25 mL an hour with a goal of 53. White count 5.7, hemoglobin 11.2, hematocrit 34.2, with a normal platelet count. Sod ium 137, potassium 3.4, chlorides 100, CO2 36, BUN 26, and creatinine 0.72. Chest x-ray shows changes primarily of COPD. Nothing acute is noted on chest x- ray. Objective - Vital Signs Vital signs: Vital Signs Temp 97.7 F 10/10/22 08:00 Pulse 62 10/10/22 10:45 Resp 18 10/10/22 10:45 BP 101/55 10/10/22 02:30 Pulse Ox 100 10/10/22 10:45 FiO2 35 10/10/22 08:04 Intake & Output 10/09/22 10/10/22 10/10/22 18:59 06:59 18:59 Intake Total 5740.068 1462.010 150 Output Total 810 675 65 Balance 508.855 619.010 85 Weight 77.1 kg 77.1 kg Intake: IV 1010 900 150 0.9% @ KVO 10 Sodium Chloride 0.9% 1, 900 900 150 000 ml @ 75 mls/hr IV . [id number] [facility] Rx#:[id number] levETIRAcetam IV 750 mg 100 In Sodium Chloride 0.9% 100 ml @ 400 mls/hr IVPB Q12HR [facility] Rx#:[id number] Intake, IV Titration 148.855 144.010 Amount Norepinephrine 32 mg In 23.156 8.973 Sodium Chloride 0.9% 218 ml @ 0.03 MCG/KG/MIN 1. 073 mls/hr IV .Q24H [facility] Rx#:[id number] propofoL 1,000 mg In 125.699 135.037 Empty Bag 1 bag @ 15 MCG/ KG/MIN 6.736 mls/hr IV . [id number] [facility] Rx#:[id number] Tube Feeding 100 100 Other 60 150 Output: Urine 810 675 65 ABP, PAP, CO, CI - Last Documented Arterial Blood Pressure 103/46 - Exam No acute distress, sedated, with an orally placed endotracheal tube. HEENT examination is grossly unremarkable. Neck supple. Full range of motion. No adenopathy thyromegaly or neck vein distention. Cardiovascular examination reveals regular rhythm rate. S1-S2 normal. No S3 or S4. No discernible murmur noted. Heart sounds are distant. Heart rate 62 bpm. Lungs reveal scattered bilateral expiratory wheezes and rhonchi. Breath sounds are equal. No crackles. Saturations are in the mid to high 90s. Abdomen soft, without bowel sounds. No masses. Extremities are intact. No cyanosis clubbing or edema. Skin is without rash or lesion. Neurologic examination cannot be adequately assessed at this time. - Labs CBC & Chem 7: 10/10/22 04:45 10/10/22 04:45 Labs: Abnormal Lab Results - Last 24 Hours (Table) 03/19/23 03/19/23 03/19/23 Range/Units 11:51 18:26 23:06 RBC (4.30-5.90) m/uL Hgb (13.0-17.5) gm/dL Hct (39.0-53.0) % ABG pCO2 (35-45) mmHg ABG HCO3 (21-25) mmol/L ABG Total CO2 (19-24) mmol/L ABG O2 Saturation (94-97) % Potassium (3.5-5.1) mmol/L Carbon Dioxide (22-30) mmol/L BUN (9-20) mg/dL Glucose (74-99) mg/dL POC Glucose (mg/dL) 157 H 155 H 137 H (70-110) mg/dL Calcium (8.4-10.2) mg/dL Total Protein (6.3-8.2) g/dL Albumin (3.5-5.0) g/dL 10/10/22 10/10/22 10/10/22 Range/Units 04:45 04:45 05:04 RBC 3.45 L (4.30-5.90) m/uL Hgb 11.2 L (13.0-17.5) gm/dL Hct 34.2 L (39.0-53.0) % ABG pCO2 59 H (35-45) mmHg ABG HCO3 35 H (21-25) mmol/L ABG Total CO2 37 H (19-24) mmol/L ABG O2 Saturation 98.7 H (94-97) % Potassium 3.4 L (3.5-5.1) mmol/L Carbon Dioxide 36 H (22-30) mmol/L BUN 26 H (9-20) mg/dL Glucose 160 H (74-99) mg/dL POC Glucose (mg/dL) (70-110) mg/dL Calcium 7.9 L (8.4-10.2) mg/dL Total Protein 5.1 L (6.3-8.2) g/dL Albumin 2.9 L (3.5-5.0) g/dL 10/10/22 Range/Units 06:05 RBC (4.30-5.90) m/uL Hgb (13.0-17.5) gm/dL Hct (39.0-53.0) % ABG pCO2 (35-45) mmHg ABG HCO3 (21-25) mmol/L ABG Total CO2 (19-24) mmol/L ABG O2 Saturation (94-97) % Potassium (3.5-5.1) mmol/L Carbon Dioxide (22-30) mmol/L BUN (9-20) mg/dL Glucose (74-99) mg/dL POC Glucose (mg/dL) 159 H (70-110) mg/dL Calcium (8.4-10.2) mg/dL Total Protein (6.3-8.2) g/dL Albumin (3.5-5.0) g/dL Microbiology - Last 24 Hours (Table) 10/07/22 21:27 Gram Stain - Final Sputum Sputum Culture - Final Assessment and Plan Assessment: Acute on chronic hypoxemic and hypercapnic respiratory failure, requiring intubation and mechanical ventilation on October 07. Severe underlying COPD/emphysema. CAD. Hypertension. Plan: Plan dated 10/10/2022. The patient has a peak airway pressure 40 cm water, and a plateau pressure of 18 cm the largest difference in the peak and plateau suggest significant airways resistance. This probably relates to the patient's underlying COPD, with bronchospasm. Labs, x-rays, medications are reviewed. We will continue to follow. Prognosis is guarded. The patient continues on albuterol, ipratropium bromide, budesonide, and formoterol, as well as Solu-Medrol. Prognosis is certainly guarded. Time with Patient: Greater than 30
[2022-10-10 12:13] LABS: Glucose,Whole Blood 150 mg/dL (70-110)
[2022-10-10] MEDS: NOREPINEPHRINE 32 MG in SODIUM CHLORIDE 0.9% 218 ML IV SCH (18:11)
[2022-10-10 18:33] LABS: Glucose,Whole Blood 160 mg/dL (70-110)
--- NOTE | 2022-10-10 19:32 | P.PN ---
Subjective Progress Note Date: 10/10/22 Patient initially seen by Dr. Raul Rodas. Please refer to his note for details. Patient is a 82-year-old male with worsening COPD. He has tremors and Dr. Rodas feels it more like metabolic tremors from hypercapnia. EEG was negative for seizure. Patient does have transient fever that has resolved. No clinical evidence of meningitis or encephalitis. Per nursing report, today patient underwent CPAP trial. Sedation was discontinued for about 40 minutes. He was following all commands. At present patient back on propofol 30 mcg/kg/m. Patient is still following directions. Patient denies headache. Some of the workup during his hospital visit consisted of: Carbon dioxide is 50 on presentation, chlorides 87, initial serum glucose is 107. The calcium, magnesium, AST and ALT is within normal limits Lainez virus is not detected Folate is 24.7 Vitamin B12 is 241 within normal supposed to be between 200-944. TSH is 0.828 Ammonia level is 15. Initial ABG is the pH of 7.1, pCO2 is more than 120, oxygen is 75 and the oxygen saturation is 92. FiO2 is 50%. CT of the head is reported as ethmoid and left sided maxillary sinusitis. No acute intracranial abnormality. Chest x-ray is reported as COPD changes with the patchy right mid lung airspace opacity which may represent infiltrate versus atelectasis/scarring. Routine EEG is abnormal. The back also suggestive of moderate encephalopathy likely due to toxic metabolic derangement. Otherwise there is no focal slowing, epileptiform discharges or seizure on the EEG. Objective - Vital Signs Vital signs: Vital Signs Temp 97.5 F L 10/10/22 12:00 Pulse 70 10/10/22 13:00 Resp 18 10/10/22 13:00 BP 101/55 10/10/22 02:30 Pulse Ox 100 10/10/22 13:00 FiO2 35 10/10/22 12:00 Intake & Output 10/09/22 10/10/22 10/10/22 18:59 06:59 18:59 Intake Total 9256.772 2918.010 616.536 Output Total 810 675 374 Balance 508.855 619.010 242.536 Weight 77.1 kg 77.1 kg Intake: IV 1010 900 550 0.9% @ KVO 10 Sodium Chloride 0.9% 1, 900 900 450 000 ml @ 75 mls/hr IV . [id number] [facility] Rx#:[id number] levETIRAcetam IV 750 mg 100 100 In Sodium Chloride 0.9% 100 ml @ 400 mls/hr IVPB Q12HR [facility] Rx#:[id number] Intake, IV Titration 148.855 144.010 66.536 Amount Norepinephrine 32 mg In 23.156 8.973 Sodium Chloride 0.9% 218 ml @ 0.03 MCG/KG/MIN 1. 073 mls/hr IV .Q24H [facility] Rx#:[id number] propofoL 1,000 mg In 125.699 135.037 66.536 Empty Bag 1 bag @ 15 MCG/ KG/MIN 6.736 mls/hr IV . [id number] [facility] Rx#:[id number] Tube Feeding 100 100 Other 60 150 Output: Urine 810 675 374 ABP, PAP, CO, CI - Last Documented Arterial Blood Pressure 113/52 - Exam Patient is sedated partly with propofol 30 g per program per minute. Patient does and follows directions. Patient denies headache. His pupils are equal, round and reacting, extraocular muscles appears intact. His data entry coordinator is 4+5-ridge aterally. Patient wiggles his toes equally. Tone is equal bilaterally. No myoclonic jerks noted at this time. - Labs CBC & Chem 7: 10/10/22 04:45 10/10/22 18:30 Labs: Abnormal Lab Results - Last 24 Hours (Table) 10/09/22 10/09/22 10/10/22 Range/Units 18:26 23:06 04:45 RBC 3.45 L (4.30-5.90) m/uL Hgb 11.2 L (13.0-17.5) gm/dL Hct 34.2 L (39.0-53.0) % ABG pCO2 (35-45) mmHg ABG HCO3 (21-25) mmol/L ABG Total CO2 (19-24) mmol/L ABG O2 Saturation (94-97) % Potassium (3.5-5.1) mmol/L Carbon Dioxide (22-30) mmol/L BUN (9-20) mg/dL Glucose (74-99) mg/dL POC Glucose (mg/dL) 155 H 137 H (70-110) mg/dL Calcium (8.4-10.2) mg/dL Total Protein (6.3-8.2) g/dL Albumin (3.5-5.0) g/dL 10/10/22 10/10/22 10/10/22 Range/Units 04:45 05:04 06:05 RBC (4.30-5.90) m/uL Hgb (13.0-17.5) gm/dL Hct (39.0-53.0) % ABG pCO2 59 H (35-45) mmHg ABG HCO3 35 H (21-25) mmol/L ABG Total CO2 37 H (19-24) mmol/L ABG O2 Saturation 98.7 H (94-97) % Potassium 3.4 L (3.5-5.1) mmol/L Carbon Dioxide 36 H (22-30) mmol/L BUN 26 H (9-20) mg/dL Glucose 160 H (74-99) mg/dL POC Glucose (mg/dL) 159 H (70-110) mg/dL Calcium 7.9 L (8.4-10.2) mg/dL Total Protein 5.1 L (6.3-8.2) g/dL Albumin 2.9 L (3.5-5.0) g/dL 10/10/22 Range/Units 12:11 RBC (4.30-5.90) m/uL Hgb (13.0-17.5) gm/dL Hct (39.0-53.0) % ABG pCO2 (35-45) mmHg ABG HCO3 (21-25) mmol/L ABG Total CO2 (19-24) mmol/L ABG O2 Saturation (94-97) % Potassium (3.5-5.1) mmol/L Carbon Dioxide (22-30) mmol/L BUN (9-20) mg/dL Glucose (74-99) mg/dL POC Glucose (mg/dL) 150 H (70-110) mg/dL Calcium (8.4-10.2) mg/dL Total Protein (6.3-8.2) g/dL Albumin (3.5-5.0) g/dL Microbiology - Last 24 Hours (Table) 10/07/22 21:27 Gram Stain - Final Sputum Sputum Culture - Final Assessment and Plan Assessment: This is a 82-year-old gentleman with history of COPD that's been having shortness of breath with a past 2-3 weeks. Tremor/jerking of extremities seems more myoclonic jerk due to hypercapnia---improved. No seizure on EEG. Altered mental status due to hypercapnic and hypoxic encephalopathy. Also medication effect (Propofol)--improved. Patient denies headache. No evidence of intracranial infection. Very low normal Vitamin B12 (241) Acute COPD exacerbation. History of COPD on oxygen at home Plan: Dr. Rodas has recommended to decrease Keppra from 750mg bid to 500mg bid (since no seizure on EEG) and clinically does not appear seizure. He further recommended to continue to taper keppra until off since unlikely seizure during this admission. I agree with the plan. For his low normal Vitamin B12, started on Vitamin B12 1000mcg IM for two days then PO after that. We'll defer the rest of the medical measure the primary team Patient's examination is nonfocal. Possible extubation in the morning. Neurology will follow clinically. Discussed with patient's nurse and patient's family in detail. Informed the results of CT head and EEG.
[2022-10-10] MEDS ORDERED: POTASSIUM BICARBONATE/CIT AC 20 MEQ TABLET.EFF NG-TUBE SCH (20:00)
--- NOTE | 2022-10-10 21:13 | P.PN ---
Subjective 82-year-old man who presents to evaluation for worsening of his shortness of breath. He states that this is been getting worse over about the last 3 weeks or so. He does have underlying history of COPD and sees Dr. Escobar. He manages at home with oxygen at 3 L usually but states this doesn't seem sufficient today. He denies taking oral steroids at the moment. The patient has not noted fever or chills. No chest pain. No change in his cough. He has not noted bloody or tarry stools. No change in his underlying leg edema. No leg pain Carbon dioxide is 50 on presentation, chlorides 87, initial serum glucose is 107. The calcium, magnesium, AST and ALT is within normal limits Lainez virus is not detected Initial ABG is the pH of 7.1, pCO2 is more than 120, oxygen is 75 and the oxygen saturation is 92. FiO2 is 50%. CT of the head is reported as ethmoid and left sided maxillary sinusitis. No acute intracranial abnormality. I personally reviewed the CT of the head and there is no acute subacute ischemia there is no intracranial hemorrhage. Chest x-ray is reported as COPD changes with the patchy right mid lung airspace opacity which may represent infiltrate versus atelectasis/scarring. 10/10/2022 Patient remains intubated and sedated Pulmonary/critical team is following Closely No more seizure activity or myoclonic jerks Manuel catheter in place. Draining clear urine. Remains on Solu-Medrol 60 mg and normal saline at 75 mL/h also he is on vitamin B12 replacement therapy and Keppra Objective - Vital Signs Vital signs: Vital Signs Temp 98.0 F 10/10/22 16:00 Pulse 76 10/10/22 19:00 Resp 18 10/10/22 19:00 BP 101/55 10/10/22 14:00 Pulse Ox 100 10/10/22 19:00 FiO2 35 10/10/22 16:00 Intake & Output 10/10/22 10/10/22 10/11/22 06:59 18:59 06:59 Intake Total 0586.141 7768.144 128 Output Total 675 554 35 Balance 619.010 843.144 93 Weight 77.1 kg 77.1 kg Intake: IV 900 925 75 Sodium Chloride 0.9% 1, 900 825 75 000 ml @ 75 mls/hr IV . [id number] [facility] Rx#:[id number] levETIRAcetam IV 750 mg 100 In Sodium Chloride 0.9% 100 ml @ 400 mls/hr IVPB Q12HR [facility] Rx#:[id number] Intake, IV Titration 144.010 122.144 Amount Norepinephrine 32 mg In 8.973 Sodium Chloride 0.9% 218 ml @ 0.03 MCG/KG/MIN 1. 073 mls/hr IV .Q24H [facility] Rx#:[id number] propofoL 1,000 mg In 135.037 122.144 Empty Bag 1 bag @ 15 MCG/ KG/MIN 6.736 mls/hr IV . [id number] [facility] Rx#:[id number] Tube Feeding 100 260 53 Other 150 90 Output: Urine 675 554 35 ABP, PAP, CO, CI - Last Documented Arterial Blood Pressure 107/48 - Exam -GENERAL: The patient is sedated and intubated HEENT: Pupils are round and equally reacting to light. EOMI. No scleral icterus. No conjunctival pallor. Normocephalic, atraumatic. No pharyngeal erythema. No thyromegaly. CARDIOVASCULAR: S1 and S2 present. No murmurs, rubs, or gallops. PULMONARY: Chest is clear to auscultation, no wheezing or crackles. ABDOMEN: Soft, nontender, nondistended, normoactive bowel sounds. No palpable organomegaly. MUSCULOSKELETAL: No joint swelling or deformity. EXTREMITIES: No cyanosis, clubbing, or pedal edema. NEUROLOGICAL: Gross neurological examination did not reveal any focal deficits. SKIN: No rashes. no petechiae. - Labs CBC & Chem 7: 10/10/22 04:45 10/10/22 18:30 Labs: Abnormal Lab Results - Last 24 Hours (Table) 10/09/22 10/10/22 10/10/22 Range/Units 23:06 04:45 04:45 RBC 3.45 L (4.30-5.90) m/uL Hgb 11.2 L (13.0-17.5) gm/dL Hct 34.2 L (39.0-53.0) % ABG pCO2 (35-45) mmHg ABG HCO3 (21-25) mmol/L ABG Total CO2 (19-24) mmol/L ABG O2 Saturation (94-97) % Potassium 3.4 L (3.5-5.1) mmol/L Carbon Dioxide 36 H (22-30) mmol/L BUN 26 H (9-20) mg/dL Glucose 160 H (74-99) mg/dL POC Glucose (mg/dL) 137 H (70-110) mg/dL Calcium 7.9 L (8.4-10.2) mg/dL Total Protein 5.1 L (6.3-8.2) g/dL Albumin 2.9 L (3.5-5.0) g/dL 10/10/22 10/10/22 10/10/22 Range/Units 05:04 06:05 12:11 RBC (4.30-5.90) m/uL Hgb (13.0-17.5) gm/dL Hct (39.0-53.0) % ABG pCO2 59 H (35-45) mmHg ABG HCO3 35 H (21-25) mmol/L ABG Total CO2 37 H (19-24) mmol/L ABG O2 Saturation 98.7 H (94-97) % Potassium (3.5-5.1) mmol/L Carbon Dioxide (22-30) mmol/L BUN (9-20) mg/dL Glucose (74-99) mg/dL POC Glucose (mg/dL) 159 H 150 H (70-110) mg/dL Calcium (8.4-10.2) mg/dL Total Protein (6.3-8.2) g/dL Albumin (3.5-5.0) g/dL 10/10/22 Range/Units 18:29 RBC (4.30-5.90) m/uL Hgb (13.0-17.5) gm/dL Hct (39.0-53.0) % ABG pCO2 (35-45) mmHg ABG HCO3 (21-25) mmol/L ABG Total CO2 (19-24) mmol/L ABG O2 Saturation (94-97) % Potassium (3.5-5.1) mmol/L Carbon Dioxide (22-30) mmol/L BUN (9-20) mg/dL Glucose (74-99) mg/dL POC Glucose (mg/dL) 160 H (70-110) mg/dL Calcium (8.4-10.2) mg/dL Total Protein (6.3-8.2) g/dL Albumin (3.5-5.0) g/dL Microbiology - Last 24 Hours (Table) 10/07/22 21:27 Gram Stain - Final Sputum Sputum Culture - Final Assessment and Plan Assessment: 1. Acute on chronic hypoxic and hypercapnic respiratory failure requiring intubation and mechanical ventilation, failed initial BiPAP treatment in the ER. - Patient remains intubated and mechanically ventilated; intensive care service on board - Patient has been started on nutritional support with antral feeding 2. Severe underlying COPD/emphysema; in acute exacerbation - Patient remains on bronchodilator nebulizer therapy along with IV steroids; empiric treatment with IV azithromycin 3. Underlying coronary artery disease; stable at baseline 4. Benign essential hypertension; patient takes Bumex 0.5 mg daily; currently not on any antihypertensive therapy 5. Myoclonic sutures suspicion for seizure - Evaluated by neurologist - currently on Keppra 6. Low vitamin B12 - Continue with oral replacement therapy DVT prophylaxis; SCDs/subcu heparin CODE STATUS; DO NOT RESUSCITATE
[2022-10-11] MEDS: methylPREDNISolone SOD SUCCI 125 MG/2 ML VIAL IV SCH ×4 (00:39→18:27)
[2022-10-11] MEDS: NOREPINEPHRINE 32 MG in SODIUM CHLORIDE 0.9% 218 ML IV SCH (00:39)
[2022-10-11 05:13] LABS: ABG Base Excess 9.1 mmol/L; ABG HCO3 35 mmol/L (21-25); ABG Oxygen Saturation 99.9 % (94-97); ABG PCO2 65 mmHg (35-45); ABG PH 7.34 (7.35-7.45); ABG PO2 154 mmHg (83-108); ABG TCO2 37 mmol/L (19-24); Allen Test Performed? Yes
[2022-10-11 05:48] LABS: Glucose,Whole Blood 159 mg/dL (70-110)
[2022-10-11 06:19] LABS: Basophils % (A) 0 %; Eosinophils % (A) 0 %; HGB 11.9 gm/dL (13.0-17.5); Lymphocytes # (A) 0.3 k/uL (1.0-4.8); Lymphocytes % (A) 4 %; MCH 31.3 pg (25.0-35.0); MCHC 31.4 g/dL (31.0-37.0); MCV 99.5 fL (80.0-100.0); Mean Platelet Volume 9.2; Monocytes # (A) 0.4 k/uL (0-1.0); Monocytes % (A) 5 %; Neutrophils # (A) 6.2 k/uL (1.3-7.7); Neutrophils % (A) 90 %; Platelet Count 232 k/uL (150-450); RBC 3.81 m/uL (4.30-5.90); RDW 12.9 % (11.5-15.5); WBC 6.9 k/uL (3.8-10.6)
[2022-10-11 06:54] LABS: African American GFR (CKD) >90 (>60 ml/min/1.73 sqM); Anion Gap 2 mmol/L; Blood Urea Nitrogen 32 mg/dL (9-20); Calcium 8.1 mg/dL (8.4-10.2); Carbon Dioxide 36 mmol/L (22-30); Chloride 102 mmol/L (98-107); Glucose 165 mg/dL (74-99); Magnesium 2.1 mg/dL (1.6-2.3); Non-African American GFR(CKD) 88 (>60 ml/min/1.73 sqM); Potassium 4.2 mmol/L (3.5-5.1); Sodium 140 mmol/L (137-145)
[2022-10-11] MEDS: IPRATROPIUM 0.5 MG/2.5 ML NEBU INHALATION SCH ×4 (08:04→21:30)
[2022-10-11] MEDS: ALBUTEROL NEBULIZED 2.5 MG/3 ML INHALATION SCH ×4 (08:04→20:59)
[2022-10-11] MEDS: FORMOTEROL FUMARATE 20 MCG/2 ML NEBU INHALATION SCH ×2 (08:18→20:59)
[2022-10-11] MEDS: BUDESONIDE 1 MG/2 ML NEBU INHALATION SCH ×2 (08:18→20:59)
--- NOTE | 2022-10-11 09:42 | XR ---
EXAMINATION TYPE: XR chest 1V portable DATE OF EXAM: 10/11/2022 COMPARISON: 10/10/2022 INDICATION: Tube placement TECHNIQUE: Single frontal view of the chest is obtained. FINDINGS: The heart size is normal. The pulmonary vasculature is normal. There is hyperinflation and flattened diaphragms compatible with edema. Bibasilar atelectasis is pres ent. Endotracheal tube tip is above the damion. Nasogastric tube transverses the thorax with tip in the le ft upper quadrant of the abdomen. Right central venous catheter tip is in the superior vena cava joshua on. IMPRESSION: 1. Lines and catheters discussed above. 2. Tenting along the diaphragm compatible with developing atelectasis. 3. COPD.
[2022-10-11] MEDS: CHLORHEXIDINE GLUCONATE 15 ML CUP MUCOUS MEM SCH ×2 (09:50→20:39)
[2022-10-11] MEDS: levETIRAcetam IV 500 MG in SODIUM CHLORIDE 0.9% 100 ML IVPB SCH ×3 (09:50→19:53)
[2022-10-11] MEDS: HEPARIN SODIUM,PORCINE/PF 5,000 UNIT/0.5 ML SYRINGE SQ SCH ×2 (09:51→20:39)
[2022-10-11] MEDS: CYANOCOBALAMIN 500 MCG TAB PO SCH (09:51)
[2022-10-11] MEDS: PANTOPRAZOLE 40 MG/10 ML VIAL IVP SCH (09:51)
[2022-10-11 10:02] LABS: ABG Base Excess 9.3 mmol/L; ABG HCO3 37 mmol/L (21-25); ABG Oxygen Saturation 79.9 % (94-97); ABG PH 7.22 (7.35-7.45); ABG TCO2 40 mmol/L (19-24); Allen Test Performed? Yes
[2022-10-11 10:07] LABS: ABG PCO2 91 mmHg (35-45)
[2022-10-11 10:08] LABS: ABG PO2 54 mmHg (83-108)
--- NOTE | 2022-10-11 11:48 | P.PN ---
Subjective Progress Note Date: 10/11/22 Principal diagnosis: Respiratory failure. Acute on chronic hypoxic and hypercapnic respiratory failure secondary to severe COPD and acute exacerbation This is an 82-year-old white male with known history of severe COPD, O2 dependent, normally on 3 L nasal cannula at home. Patient presents to the ER for evaluation of chronic shortness of breath, and has been getting worse over the last 3 weeks. While in the ER, the patient was developing worsening respiratory failure, and I believe he was given a trial of BiPAP according to the note by the ER physician. Intravenous blood gases done showed a pCO2 of 107 and a pH of 7.26. FEN another ABG was done which was just before the patient was intubated showed a pO2 of 75 pCO2 of more than 120 and a pH of 7.10. Apparently the patient had a sudden deteriorating course while in the ER with worsening hypercapnia. Then another ABG was done post intubation showed a pO2 of 172 pCO2 of 99 pH of 7.30. I was notified about this patient after he was intubated, accepted the patient to the ICU and recommended some changes in the ventilator settings. I saw him this morning, ABG this morning showed a pO2 of 83 pCO2 58 pH of 7.51 and I felt the patient is being hyperventilated I cut down his rate from 22 down to 18. Obviously the patient has a baseline pCO2 most likely in the high 60s or 70s. Patient is now on assist control rate of 18 tidal volume 450 FiO2 35% PEEP of 5 and he is on IV fluid at KVO, it did receive Diamox last night. He had a temp of 102 last night, and we will start enteral feeding via orogastric tube. Chest x-ray showed no evidence of infiltrate, it is mostly consistent with COPD/emphysema. After evaluating the patient this morning went ahead and placed a right IJ triple-lumen cath and a right radial arterial line for monitoring. Looking at the note from the ER physician apparently he discussed the CODE STATUS with the family family agreed to intubation although the patient was DO NOT RESUSCITATE on previous admissions. We need to clarify this CODE STATUS with the family at bedside. Labs today showed WBC count of 2.8 hemoglobin 11.7, basic metabolic profile is normal except for elevated bicarb of 43 renal profile is normal, screening for COVID-19 infection was negative Reevaluated today on 10/09/2022, patient remains in the ICU intubated and mechanically ventilated, he is on assist control rate of 18 tidal volume 450 FiO2 35% PEEP of 5 ABG showed a pO2 of 90 pCO2 66 pH of 7.39, hence the patient was kept on the same vent settings. He is on propofol at 15 mcg/kg/m norepinephrine at 0.02 mcg/kg/m IV fluids 75 mL per hour and is also on vital HPF 10 mL per hour. Patient was awakened, and his weaning parameters were checked, they were borderline, patient was given about an hour trial of pressure support and CPAP, however ABG after 1 hour showed significant rise in his pCO2 up to 85, his pH was 7.28, and his pO2 was 59. Hence I recommended that the patient goes back on mechanical ventilation, and his Nif was only -15. Obviously the patient is not quite ready for weaning and extubation at this point. WBC count is 7.8 hemoglobin is 11.8. Electrolytes are normal bicarb is 37 renal profile is normal. Chest x-ray showed no evidence of acute process, evidence of COPD emphysema and biapical pleural parenchymal scarring noted Progress note dated 10/10/2022. 82-year-old white male who was admitted to the hospital on October 07, with COPD exacerbation. The patient was intubated on the same day. The patient remains on the mechanical ventilator. He is on volume assist control, rate 18, tidal volume 450, FiO2 35%, and PEEP of 5. Arterial blood gases show pO2 of 108, pCO2 59, pH is 7.38. His peak airway pressure is 40. His plateau pressure is 18. This suggests a high amount of airways resistance. The patient's on norepinephrine, which is on hold currently. Propofol at 30 mcg/kg/m, saline at 75 mL an hour, and vital high protein at 25 mL an hour with a goal of 53. White count 5.7, hemoglobin 11.2, hematocrit 34.2, with a normal platelet count. Sod ium 137, potassium 3.4, chlorides 100, CO2 36, BUN 26, and creatinine 0.72. Chest x-ray shows changes primarily of COPD. Nothing acute is noted on chest x- ray. Progress note dated 10/11/2022 82-year-old male who was admitted to the hospital on October 07, for COPD exacerbation. Unfortunately, he developed tiffany respiratory failure, and was intubated on the same day. He seen today in room 264. He failed a spontaneous breathing trial yesterday. He remains on volume assist control, rate 18, tidal volume 450, FiO2 35%, and PEEP of 5. Blood gases show pO2 154, pCO2 of 65, and a pH is 7.34. He remains off of propofol, and saline is running at 75 mL an hour. Tube feedings, which were at goal, are currently on hold. Today we will attempt another spontaneous breathing trial, pressure support of 5, and CPAP of 5. White count 6.9, hemoglobin 11.9, hematocrit 38, platelet count of 232,000. Sodium 140, potassium 4.2, chlorides 102, CO2 36, BUN 32, and creatinine 0.71. Chest x-ray shows bibasilar atelectasis. Unfortunately, the patient failed his weaning trial again today, with blood gases showing a pO2 of 54, down from 154, and a pCO2 of 91, up from 65. Also, the patient developed an acute respiratory acidosis, but the pH dropping to 7.34 down to 7.22. Objective - Vital Signs Vital signs: Vital Signs Temp 97.8 F 10/11/22 08:00 Pulse 72 10/11/22 11:36 Resp 18 10/11/22 11:00 BP 101/55 10/11/22 09:30 Pulse Ox 94 L 10/11/22 11:00 FiO2 35 10/11/22 11:00 Intake & Output 10/10/22 10/11/22 10/11/22 18:59 06:59 18:59 Intake Total 2654.148 8628.847 589 Output Total 554 440 270 Balance 969.753 2685.847 319 Weight 77.1 kg Intake: IV 925 900 375 Sodium Chloride 0.9% 1, 825 900 375 000 ml @ 75 mls/hr IV . [id number] [facility] Rx#:[id number] levETIRAcetam IV 750 mg 100 In Sodium Chloride 0.9% 100 ml @ 400 mls/hr IVPB Q12HR [facility] Rx#:[id number] Intake, IV Titration 122.144 278.847 Amount Norepinephrine 32 mg In 0 Sodium Chloride 0.9% 218 ml @ 0.03 MCG/KG/MIN 1. 073 mls/hr IV .Q24H [facility] Rx#:[id number] levETIRAcetam IV 500 mg 100 In Sodium Chloride 0.9% 100 ml @ 400 mls/hr IVPB Q12HR [facility] Rx#:[id number] propofoL 1,000 mg In 122.144 178.847 Empty Bag 1 bag @ 15 MCG/ KG/MIN 6.736 mls/hr IV . [id number] [facility] Rx#:[id number] Tube Feeding 260 636 184 Other 90 30 30 Output: Urine 554 440 270 ABP, PAP, CO, CI - Last Documented Arterial Blood Pressure 103/51 - Exam No acute distress, off sedation, looks awake and alert, with an orally placed endotracheal tube. HEENT examination is grossly unremarkable. Neck supple. Full range of motion. No adenopathy thyromegaly or neck vein distention. Cardiovascular examination reveals regular rhythm rate. S1-S2 normal. No S3 or S4. No discernible murmur noted. Heart sounds are distant. Heart rate 75 bpm. Lungs reveal scattered bilateral expiratory wheezes and rhonchi. Breath sounds are equal. No crackles. Saturations are 94%. Abdomen soft, without bowel sounds. No masses. Extremities are intact. No cyanosis clubbing or edema. Skin is without rash or lesion. Neurologic examination appears normal. - Labs CBC & Chem 7: 10/11/22 05:30 10/11/22 05:30 Labs: Abnormal Lab Results - Last 24 Hours (Table) 10/10/22 10/10/22 10/11/22 Range/Units 12:11 18:29 05:10 RBC (4.30-5.90) m/uL Hgb (13.0-17.5) gm/dL Hct (39.0-53.0) % Lymphocytes # (1.0-4.8) k/uL ABG pH 7.34 L (7.35-7.45) ABG pCO2 65 H (35-45) mmHg ABG pO2 154 H (83-108) mmHg ABG HCO3 35 H (21-25) mmol/L ABG Total CO2 37 H (19-24) mmol/L ABG O2 Saturation 99.9 H (94-97) % Carbon Dioxide (22-30) mmol/L BUN (9-20) mg/dL Glucose (74-99) mg/dL POC Glucose (mg/dL) 150 H 160 H (70-110) mg/dL Calcium (8.4-10.2) mg/dL 10/11/22 10/11/22 10/11/22 Range/Units 05:30 05:30 05:47 RBC 3.81 L (4.30-5.90) m/uL Hgb 11.9 L (13.0-17.5) gm/dL Hct 38.0 L (39.0-53.0) % Lymphocytes # 0.3 L (1.0-4.8) k/uL ABG pH (7.35-7.45) ABG pCO2 (35-45) mmHg ABG pO2 (83-108) mmHg ABG HCO3 (21-25) mmol/L ABG Total CO2 (19-24) mmol/L ABG O2 Saturation (94-97) % Carbon Dioxide 36 H (22-30) mmol/L BUN 32 H (9-20) mg/dL Glucose 165 H (74-99) mg/dL POC Glucose (mg/dL) 159 H (70-110) mg/dL Calcium 8.1 L (8.4-10.2) mg/dL 10/11/22 Range/Units 09:58 RBC (4.30-5.90) m/uL Hgb (13.0-17.5) gm/dL Hct (39.0-53.0) % Lymphocytes # (1.0-4.8) k/uL ABG pH 7.22 L (7.35-7.45) ABG pCO2 91 H* (35-45) mmHg ABG pO2 54 L* (83-108) mmHg ABG HCO3 37 H (21-25) mmol/L ABG Total CO2 40 H (19-24) mmol/L ABG O2 Saturation 79.9 L (94-97) % Carbon Dioxide (22-30) mmol/L BUN (9-20) mg/dL Glucose (74-99) mg/dL POC Glucose (mg/dL) (70-110) mg/dL Calcium (8.4-10.2) mg/dL Microbiology - Last 24 Hours (Table) 10/07/22 21:27 Gram Stain - Final Sputum Sputum Culture - Final Assessment and Plan Assessment: Acute on chronic hypoxemic and hypercapnic respiratory failure, requiring intubation and mechanical ventilation on October 07. Severe underlying COPD/emphysema. CAD. Hypertension. Plan: Plan dated 10/10/2022. The patient has a peak airway pressure 40 cm water, and a plateau pressure of 18 cm the largest difference in the peak and plateau suggest significant airways resistance. This probably relates to the patient's underlying COPD, with bronchospasm. Labs, x-rays, medications are reviewed. We will continue to follow. Prognosis is guarded. The patient continues on albuterol, ipratropium bromide, budesonide, and formoterol, as well as Solu-Medrol. Prognosis is certainly guarded. Plan dated 10/11/2022. Today's respiratory mechanics show improvement. The difference between the peak airway pressure, and a plateau pressure, has narrowed, suggesting a reduction in airways resistance. I forcefully, the patient was placed on pressure support of 5, and CPAP of 5, and failed his weaning trial. He'll be re-sedated, and placed back on the mechanical ventilator. Labs, x-rays, medications are reviewed. Prognosis remains guarded. We will continue to follow make recommendations along the way. The patient may in the long run, require tracheostomy and PEG tube placement, if he does not get extubated. Time with Patient: Greater than 30
[2022-10-11 12:05] LABS: Glucose,Whole Blood 121 mg/dL (70-110)
[2022-10-11 18:11] LABS: Glucose,Whole Blood 158 mg/dL (70-110)
[2022-10-11] MEDS: SODIUM CHLORIDE 0.9% 1,000 ML IV SCH (20:39)
[2022-10-11 23:51] LABS: Glucose,Whole Blood 152 mg/dL (70-110)
[2022-10-12] MEDS: IPRATROPIUM 0.5 MG/2.5 ML NEBU INHALATION PRN ×2 (00:33→04:04)
[2022-10-12] MEDS: ALBUTEROL NEBULIZED 2.5 MG/3 ML INHALATION PRN ×2 (00:33→04:04)
[2022-10-12] MEDS: methylPREDNISolone SOD SUCCI 125 MG/2 ML VIAL IV SCH ×3 (00:38→11:59)
[2022-10-12] MEDS: SODIUM CHLORIDE 0.9% 1,000 ML IV SCH ×2 (00:39→05:10)
--- NOTE | 2022-10-12 00:43 | P.PN ---
Subjective 82-year-old man who presents to evaluation for worsening of his shortness of breath. He states that this is been getting worse over about the last 3 weeks or so. He does have underlying history of COPD and sees Dr. Escobar. He manages at home with oxygen at 3 L usually but states this doesn't seem sufficient today. He denies taking oral steroids at the moment. The patient has not noted fever or chills. No chest pain. No change in his cough. He has not noted bloody or tarry stools. No change in his underlying leg edema. No leg pain Carbon dioxide is 50 on presentation, chlorides 87, initial serum glucose is 107. The calcium, magnesium, AST and ALT is within normal limits Lainez virus is not detected Initial ABG is the pH of 7.1, pCO2 is more than 120, oxygen is 75 and the oxygen saturation is 92. FiO2 is 50%. CT of the head is reported as ethmoid and left sided maxillary sinusitis. No acute intracranial abnormality. I personally reviewed the CT of the head and there is no acute subacute ischemia there is no intracranial hemorrhage. Chest x-ray is reported as COPD changes with the patchy right mid lung airspace opacity which may represent infiltrate versus atelectasis/scarring. 10/10/2022 Patient remains intubated and sedated Pulmonary/critical team is following Closely No more seizure activity or myoclonic jerks Manuel catheter in place. Draining clear urine. Remains on Solu-Medrol 60 mg and normal saline at 75 mL/h also he is on vitamin B12 replacement therapy and Keppra 10/11/2022 Patient remains intubated with pulmonary critical care team followed closely and adjust vent per care. Chest x-ray still showed COPD changes Remains on IV Solu-Medrol Weaning trial Objective - Vital Signs Vital signs: Vital Signs Temp 96.7 F L 10/11/22 12:00 Pulse 80 10/11/22 15:42 Resp 15 10/11/22 15:42 BP 101/55 10/11/22 09:30 Pulse Ox 96 10/11/22 15:00 FiO2 35 10/11/22 15:28 Intake & Output 10/10/22 10/11/22 10/11/22 18:59 06:59 18:59 Intake Total 8839.279 6193.847 1131 Output Total 554 440 425 Balance 799.653 3159.847 706 Weight 77.1 kg Intake: IV 925 900 675 Sodium Chloride 0.9% 1, 825 900 675 000 ml @ 75 mls/hr IV . [id number] [facility] Rx#:[id number] levETIRAcetam IV 750 mg 100 In Sodium Chloride 0.9% 100 ml @ 400 mls/hr IVPB Q12HR [facility] Rx#:[id number] Intake, IV Titration 122.144 278.847 Amount Norepinephrine 32 mg In 0 Sodium Chloride 0.9% 218 ml @ 0.03 MCG/KG/MIN 1. 073 mls/hr IV .Q24H [facility] Rx#:[id number] levETIRAcetam IV 500 mg 100 In Sodium Chloride 0.9% 100 ml @ 400 mls/hr IVPB Q12HR [facility] Rx#:[id number] propofoL 1,000 mg In 122.144 178.847 Empty Bag 1 bag @ 15 MCG/ KG/MIN 6.736 mls/hr IV . [id number] R[facility] Rx#:[id number] Tube Feeding 260 636 396 Other 90 30 60 Output: Urine 554 440 425 ABP, PAP, CO, CI - Last Documented Arterial Blood Pressure 98/50 - Exam -GENERAL: The patient is sedated and intubated HEENT: Pupils are round and equally reacting to light. EOMI. No scleral icterus. No conjunctival pallor. Normocephalic, atraumatic. No pharyngeal erythema. No thyromegaly. CARDIOVASCULAR: S1 and S2 present. No murmurs, rubs, or gallops. PULMONARY: Chest is clear to auscultation, no wheezing or crackles. ABDOMEN: Soft, nontender, nondistended, normoactive bowel sounds. No palpable organomegaly. MUSCULOSKELETAL: No joint swelling or deformity. EXTREMITIES: No cyanosis, clubbing, or pedal edema. NEUROLOGICAL: Gross neurological examination did not reveal any focal deficits. SKIN: No rashes. no petechiae. - Labs CBC & Chem 7: 10/11/22 05:30 10/11/22 05:30 Labs: Abnormal Lab Results - Last 24 Hours (Table) 10/10/22 10/11/22 10/11/22 Range/Units 18:29 05:10 05:30 RBC 3.81 L (4.30-5.90) m/uL Hgb 11.9 L (13.0-17.5) gm/dL Hct 38.0 L (39.0-53.0) % Lymphocytes # 0.3 L (1.0-4.8) k/uL ABG pH 7.34 L (7.35-7.45) ABG pCO2 65 H (35-45) mmHg ABG pO2 154 H (83-108) mmHg ABG HCO3 35 H (21-25) mmol/L ABG Total CO2 37 H (19-24) mmol/L ABG O2 Saturation 99.9 H (94-97) % Carbon Dioxide (22-30) mmol/L BUN (9-20) mg/dL Glucose (74-99) mg/dL POC Glucose (mg/dL) 160 H (70-110) mg/dL Calcium (8.4-10.2) mg/dL 10/11/22 10/11/22 10/11/22 Range/Units 05:30 05:47 09:58 RBC (4.30-5.90) m/uL Hgb (13.0-17.5) gm/dL Hct (39.0-53.0) % Lymphocytes # (1.0-4.8) k/uL ABG pH 7.22 L (7.35-7.45) ABG pCO2 91 H* (35-45) mmHg ABG pO2 54 L* (83-108) mmHg ABG HCO3 37 H (21-25) mmol/L ABG Total CO2 40 H (19-24) mmol/L ABG O2 Saturation 79.9 L (94-97) % Carbon Dioxide 36 H (22-30) mmol/L BUN 32 H (9-20) mg/dL Glucose 165 H (74-99) mg/dL POC Glucose (mg/dL) 159 H (70-110) mg/dL Calcium 8.1 L (8.4-10.2) mg/dL 10/11/22 Range/Units 12:04 RBC (4.30-5.90) m/uL Hgb (13.0-17.5) gm/dL Hct (39.0-53.0) % Lymphocytes # (1.0-4.8) k/uL ABG pH (7.35-7.45) ABG pCO2 (35-45) mmHg ABG pO2 (83-108) mmHg ABG HCO3 (21-25) mmol/L ABG Total CO2 (19-24) mmol/L ABG O2 Saturation (94-97) % Carbon Dioxide (22-30) mmol/L BUN (9-20) mg/dL Glucose (74-99) mg/dL POC Glucose (mg/dL) 121 H (70-110) mg/dL Calcium (8.4-10.2) mg/dL Assessment and Plan Assessment: 1. Acute on chronic hypoxic and hypercapnic respiratory failure requiring intubation and mechanical ventilation, failed initial BiPAP treatment in the ER. - Patient remains intubated and mechanically ventilated; intensive care service on board - Patient has been started on nutritional support with antral feeding 2. Severe underlying COPD/emphysema; in acute exacerbation - Patient remains on bronchodilator nebulizer therapy along with IV steroids; empiric treatment with IV azithromycin 3. Underlying coronary artery disease; stable at baseline 4. Benign essential hypertension; patient takes Bumex 0.5 mg daily; currently not on any antihypertensive therapy 5. Myoclonic sutures suspicion for seizure - Evaluated by neurologist - currently on Keppra 6. Low vitamin B12 - Continue with oral replacement therapy DVT prophylaxis; SCDs/subcu heparin CODE STATUS; DO NOT RESUSCITATE
[2022-10-12] MEDS ORDERED: SENNOSIDES 8.6 MG TAB PO PRN (02:43)
[2022-10-12 05:43] LABS: Basophils % (A) 0 %; Eosinophils % (A) 0 %; HCT 37.5 % (39.0-53.0); HGB 11.7 gm/dL (13.0-17.5); Lymphocytes # (A) 0.2 k/uL (1.0-4.8); Lymphocytes % (A) 5 %; MCH 31.3 pg (25.0-35.0); MCHC 31.2 g/dL (31.0-37.0); MCV 100.3 fL (80.0-100.0); Mean Platelet Volume 9.3; Monocytes # (A) 0.3 k/uL (0-1.0); Monocytes % (A) 7 %; Neutrophils # (A) 4.2 k/uL (1.3-7.7); Neutrophils % (A) 88 %; Platelet Count 189 k/uL (150-450); RBC 3.74 m/uL (4.30-5.90); RDW 12.9 % (11.5-15.5); WBC 4.8 k/uL (3.8-10.6)
[2022-10-12 05:53] LABS: African American GFR (CKD) >90 (>60 ml/min/1.73 sqM); Anion Gap 1 mmol/L; Blood Urea Nitrogen 39 mg/dL (9-20); Calcium 8.1 mg/dL (8.4-10.2); Carbon Dioxide 37 mmol/L (22-30); Chloride 102 mmol/L (98-107); Glucose 167 mg/dL (74-99); Magnesium 2.2 mg/dL (1.6-2.3); Non-African American GFR(CKD) 85 (>60 ml/min/1.73 sqM); Potassium 4.4 mmol/L (3.5-5.1); Sodium 140 mmol/L (137-145)
[2022-10-12 06:05] LABS: ABG Base Excess 8.8 mmol/L; ABG HCO3 35 mmol/L (21-25); ABG Oxygen Saturation 94.8 % (94-97); ABG PCO2 69 mmHg (35-45); ABG PH 7.31 (7.35-7.45); ABG PO2 76 mmHg (83-108); ABG TCO2 37 mmol/L (19-24); Allen Test Performed? Yes
--- NOTE | 2022-10-12 07:22 | XR ---
EXAMINATION TYPE: XR chest 1V portable DATE OF EXAM: 10/12/2022 COMPARISON: 10/11/2022 HISTORY: SOB, Follow Up FINDINGS: Indwelling tubes and catheters are unchanged. Severe hyperinflation compatible with COPD. Stable appe arance of the cardio-mediastinal structures at this time. IMPRESSION: 1. Stable portable chest. Clinical correlation and follow up until resolution is recommended.
[2022-10-12] MEDS: ALBUTEROL NEBULIZED 2.5 MG/3 ML INHALATION SCH ×2 (07:58→10:51)
[2022-10-12] MEDS: BUDESONIDE 1 MG/2 ML NEBU INHALATION SCH (07:59)
[2022-10-12] MEDS: FORMOTEROL FUMARATE 20 MCG/2 ML NEBU INHALATION SCH (07:59)
[2022-10-12] MEDS: IPRATROPIUM 0.5 MG/2.5 ML NEBU INHALATION SCH ×2 (07:59→10:51)
[2022-10-12] MEDS: levETIRAcetam IV 500 MG in SODIUM CHLORIDE 0.9% 100 ML IVPB SCH (08:46)
[2022-10-12] MEDS: HEPARIN SODIUM,PORCINE/PF 5,000 UNIT/0.5 ML SYRINGE SQ SCH (08:47)
[2022-10-12] MEDS: PANTOPRAZOLE 40 MG/10 ML VIAL IVP SCH (08:47)
[2022-10-12] MEDS: CYANOCOBALAMIN 500 MCG TAB PO SCH (08:47)
[2022-10-12] MEDS: CHLORHEXIDINE GLUCONATE 15 ML CUP MUCOUS MEM SCH (08:47)
--- NOTE | 2022-10-12 10:19 | P.PN ---
Subjective Progress Note Date: 10/11/22 10/11/2022: Patient was seen for a follow-up. Patient currently on propofol 35 g per program per minute. Per nursing report, with sedation holiday, patient was quite alert awake following all directions. He denied any headache. However patient's respiratory status still poor, as he started desaturating therefore placed back on ventilator and sedation. 10/10/2022: Patient initially seen by Dr. Raul Rodas. Please refer to his note for details. Patient is a 82-year-old male with worsening COPD. He has tremors and Dr. Rodas feels it more like metabolic tremors from hypercapnia. EEG was negative for seizure. Patient does have transient fever that has resolved. No clinical evidence of meningitis or encephalitis. Per nursing report, today patient underwent CPAP trial. Sedation was discontinued for about 40 minutes. He was following all commands. At present patient back on propofol 30 mcg/kg/m. Patient is still following directions. Patient denies headache. Some of the workup during his hospital visit consisted of: Carbon dioxide is 50 on presentation, chlorides 87, initial serum glucose is 107. The calcium, magnesium, AST and ALT is within normal limits Lainez virus is not detected Folate is 24.7 Vitamin B12 is 241 within normal supposed to be between 200-944. TSH is 0.828 Ammonia level is 15. Initial ABG is the pH of 7.1, pCO2 is more than 120, oxygen is 75 and the oxygen saturation is 92. FiO2 is 50%. CT of the head is reported as ethmoid and left sided maxillary sinusitis. No acute intracranial abnormality. Chest x-ray is reported as COPD changes with the patchy right mid lung airspace opacity which may represent infiltrate versus atelectasis/scarring. Routine EEG is abnormal. The back also suggestive of moderate encephalopathy li kamlesh due to toxic metabolic derangement. Otherwise there is no focal slowing, epileptiform discharges or seizure on the EEG. Objective - Vital Signs Vital signs: Vital Signs Temp 97.8 F 10/11/22 08:00 Pulse 87 10/11/22 09:30 Resp 14 10/11/22 09:30 BP 101/55 10/11/22 09:30 Pulse Ox 99 10/11/22 09:30 FiO2 35 10/11/22 09:30 Intake & Output 10/10/22 10/11/22 10/11/22 18:59 06:59 18:59 Intake Total 9291.423 4005.847 361 Output Total 554 440 185 Balance 805.439 9310.847 176 Weight 77.1 kg Intake: IV 925 900 225 Sodium Chloride 0.9% 1, 825 900 225 000 ml @ 75 mls/hr IV . [id number] [facility] Rx#:[id number] levETIRAcetam IV 750 mg 100 In Sodium Chloride 0.9% 100 ml @ 400 mls/hr IVPB Q12HR R[facility] Rx#:[id number] Intake, IV Titration 122.144 278.847 Amount Norepinephrine 32 mg In 0 Sodium Chloride 0.9% 218 ml @ 0.03 MCG/KG/MIN 1. 073 mls/hr IV .Q24H [facility] Rx#:[id number] levETIRAcetam IV 500 mg 100 In Sodium Chloride 0.9% 100 ml @ 400 mls/hr IVPB Q12HR R[facility]MA Rx#:[id number] propofoL 1,000 mg In 122.144 178.847 Empty Bag 1 bag @ 15 MCG/ KG/MIN 6.736 mls/hr IV . [id number] R[facility] Rx#:[id number] Tube Feeding 260 636 106 Other 90 30 30 Output: Urine 554 440 185 ABP, PAP, CO, CI - Last Documented Arterial Blood Pressure 153/64 - Exam Patient is intubated, sedated. Patient is sedated partly with propofol 35 mcg/kg/m. Patient does and follows directions. Patient denies headache. His pupils are equal, round and reacting, extraocular muscles appears intact. His director of pediatric rehabilitation is 4+5-bilaterally. Patient wiggles his toes equally. Tone is equal bilaterally. No myoclonic jerks noted at this time. - Labs CBC & Chem 7: 10/12/22 05:20 10/12/22 05:20 Labs: Abnormal Lab Results - Last 24 Hours (Table) 10/10/22 10/10/22 10/11/22 Range/Units 12:11 18:29 05:10 RBC (4.30-5.90) m/uL Hgb (13.0-17.5) gm/dL Hct (39.0-53.0) % Lymphocytes # (1.0-4.8) k/uL ABG pH 7.34 L (7.35-7.45) ABG pCO2 65 H (35-45) mmHg ABG pO2 154 H (83-108) mmHg ABG HCO3 35 H (21-25) mmol/L ABG Total CO2 37 H (19-24) mmol/L ABG O2 Saturation 99.9 H (94-97) % Carbon Dioxide (22-30) mmol/L BUN (9-20) mg/dL Glucose (74-99) mg/dL POC Glucose (mg/dL) 150 H 160 H (70-110) mg/dL Calcium (8.4-10.2) mg/dL 10/11/22 10/11/22 10/11/22 Range/Units 05:30 05:30 05:47 RBC 3.81 L (4.30-5.90) m/uL Hgb 11.9 L (13.0-17.5) gm/dL Hct 38.0 L (39.0-53.0) % Lymphocytes # 0.3 L (1.0-4.8) k/uL ABG pH (7.35-7.45) ABG pCO2 (35-45) mmHg ABG pO2 (83-108) mmHg ABG HCO3 (21-25) mmol/L ABG Total CO2 (19-24) mmol/L ABG O2 Saturation (94-97) % Carbon Dioxide 36 H (22-30) mmol/L BUN 32 H (9-20) mg/dL Glucose 165 H (74-99) mg/dL POC Glucose (mg/dL) 159 H (70-110) mg/dL Calcium 8.1 L (8.4-10.2) mg/dL 10/11/22 Range/Units 09:58 RBC (4.30-5.90) m/uL Hgb (13.0-17.5) gm/dL Hct (39.0-53.0) % Lymphocytes # (1.0-4.8) k/uL ABG pH 7.22 L (7.35-7.45) ABG pCO2 91 H* (35-45) mmHg ABG pO2 54 L* (83-108) mmHg ABG HCO3 37 H (21-25) mmol/L ABG Total CO2 40 H (19-24) mmol/L ABG O2 Saturation 79.9 L (94-97) % Carbon Dioxide (22-30) mmol/L BUN (9-20) mg/dL Glucose (74-99) mg/dL POC Glucose (mg/dL) (70-110) mg/dL Calcium (8.4-10.2) mg/dL Microbiology - Last 24 Hours (Table) 10/07/22 21:27 Gram Stain - Final Sputum Sputum Culture - Final Assessment and Plan Assessment: This is a 82-year-old gentleman with history of COPD that's been having shortness of breath with a past 2-3 weeks. Tremor/jerking of extremities seems more myoclonic jerk due to hypercapnia---improved. No seizure on EEG. Altered mental status due to hypercapnic and hypoxic encephalopathy. Also medication effect (Propofol)--improved. Patient denies headache. No evidence of intracranial infection. Very low normal Vitamin B12 (241) Acute COPD exacerbation. History of COPD on oxygen at home Plan: Dr. Rodas has recommended to decrease Keppra from 750mg bid to 500mg bid (since no seizure on EEG) and clinically does not appear seizure. He further recommended to continue to taper keppra until off since unlikely seizure during this admission. I agree with the plan. Decrease Keppra to 500 mg once daily for 2 days and then stop. Patient's examination is nonfocal and he responds appropriately. Denies headache. For his low normal Vitamin B12, started on Vitamin B12 1000mcg IM for two days then PO after that. We'll defer the rest of the medical measure the primary team
--- NOTE | 2022-10-12 10:53 | P.PN ---
Subjective 82-year-old man who presents to evaluation for worsening of his shortness of breath. He states that this is been getting worse over about the last 3 weeks or so. He does have underlying history of COPD and sees Dr. Escobar. He manages at home with oxygen at 3 L usually but states this doesn't seem sufficient today. He denies taking oral steroids at the moment. The patient has not noted fever or chills. No chest pain. No change in his cough. He has not noted bloody or tarry stools. No change in his underlying leg edema. No leg pain Carbon dioxide is 50 on presentation, chlorides 87, initial serum glucose is 107. The calcium, magnesium, AST and ALT is within normal limits Lainez virus is not detected Initial ABG is the pH of 7.1, pCO2 is more than 120, oxygen is 75 and the oxygen saturation is 92. FiO2 is 50%. CT of the head is reported as ethmoid and left sided maxillary sinusitis. No acute intracranial abnormality. I personally reviewed the CT of the head and there is no acute subacute ischemia there is no intracranial hemorrhage. Chest x-ray is reported as COPD changes with the patchy right mid lung airspace opacity which may represent infiltrate versus atelectasis/scarring. 10/10/2022 Patient remains intubated and sedated Pulmonary/critical team is following Closely No more seizure activity or myoclonic jerks Manuel catheter in place. Draining clear urine. Remains on Solu-Medrol 60 mg and normal saline at 75 mL/h also he is on vitamin B12 replacement therapy and Keppra 10/11/2022 Patient remains intubated with pulmonary critical care team followed closely and adjust vent per care. Chest x-ray still showed COPD changes Remains on IV Solu-Medrol Weaning trial 10/12/2022 Patient remains in the ICU intubated and sedated with pulmonary/critical care team following him closely. Chest x-ray showing hyperinflated chest. He continued with the same respiratory therapy treatment and pulmonary is following him closely. [place] signed off the case for ACS has been ruled out. 10/12/2022 Patient remains intubated and sedated with pulmonary/critical care team following him closely He is undergoing sedation holiday Keppra dose was tapered per neurologist and currently 500 mg daily. review of the lytic stable He is on vitamin B12 replacement therapy Continue tonsillar Medrol 60 mg, normal saline 75 ml/h Objective - Vital Signs Vital signs: Vital Signs Temp 98.8 F 10/12/22 08:00 Pulse 116 H 10/12/22 10:30 Resp 21 10/12/22 10:30 BP 101/55 10/12/22 10:30 Pulse Ox 95 10/12/22 10:30 FiO2 35 10/12/22 09:00 Intake & Output 10/11/22 10/12/22 10/12/22 18:59 06:59 18:59 Intake Total 1645 2132.908 568.449 Output Total 550 532 115 Balance 1095 1600.908 453.449 Weight 77.3 kg Intake: IV 900 1125 225 Sodium Chloride 0.9% 1, 900 1125 225 000 ml @ 75 mls/hr IV . [id number] [facility] Rx#:[id number] Intake, IV Titration 100 152.908 154.449 Amount levETIRAcetam IV 500 mg 100 In Sodium Chloride 0.9% 100 ml @ 400 mls/hr IVPB DAILY [facility] Rx#:[id number] propofoL 1,000 mg In 100 152.908 54.449 Empty Bag 1 bag @ 15 MCG/ KG/MIN 6.736 mls/hr IV . [id number] [facility] Rx#:[id number] Tube Feeding 555 795 159 Other 90 60 30 Output: Urine 550 532 115 ABP, PAP, CO, CI - Last Documented Arterial Blood Pressure 125/46 - Exam -GENERAL: The patient is sedated and intubated HEENT: Pupils are round and equally reacting to light. EOMI. No scleral icterus. No conjunctival pallor. Normocephalic, atraumatic. No pharyngeal erythema. No thyromegaly. CARDIOVASCULAR: S1 and S2 present. No murmurs, rubs, or gallops. PULMONARY: Chest is clear to auscultation, no wheezing or crackles. ABDOMEN: Soft, nontender, nondistended, normoactive bowel sounds. No palpable organomegaly. MUSCULOSKELETAL: No joint swelling or deformity. EXTREMITIES: No cyanosis, clubbing, or pedal edema. NEUROLOGICAL: Gross neurological examination did not reveal any focal deficits. SKIN: No rashes. no petechiae. - Labs CBC & Chem 7: 10/12/22 05:20 10/12/22 05:20 Labs: Abnormal Lab Results - Last 24 Hours (Table) 10/11/22 10/11/22 10/11/22 Range/Units 12:04 18:10 23:50 RBC (4.30-5.90) m/uL Hgb (13.0-17.5) gm/dL Hct (39.0-53.0) % MCV (80.0-100.0) fL Lymphocytes # (1.0-4.8) k/uL ABG pH (7.35-7.45) ABG pCO2 (35-45) mmHg ABG pO2 (83-108) mmHg ABG HCO3 (21-25) mmol/L ABG Total CO2 (19-24) mmol/L Carbon Dioxide (22-30) mmol/L BUN (9-20) mg/dL Glucose (74-99) mg/dL POC Glucose (mg/dL) 121 H 158 H 152 H (70-110) mg/dL Calcium (8.4-10.2) mg/dL 10/12/22 10/12/22 10/12/22 Range/Units 05:20 05:20 05:51 RBC 3.74 L (4.30-5.90) m/uL Hgb 11.7 L (13.0-17.5) gm/dL Hct 37.5 L (39.0-53.0) % MCV 100.3 H (80.0-100.0) fL Lymphocytes # 0.2 L (1.0-4.8) k/uL ABG pH 7.31 L (7.35-7.45) ABG pCO2 69 H (35-45) mmHg ABG pO2 76 L (83-108) mmHg ABG HCO3 35 H (21-25) mmol/L ABG Total CO2 37 H (19-24) mmol/L Carbon Dioxide 37 H (22-30) mmol/L BUN 39 H (9-20) mg/dL Glucose 167 H (74-99) mg/dL POC Glucose (mg/dL) (70-110) mg/dL Calcium 8.1 L (8.4-10.2) mg/dL Assessment and Plan Assessment: 1. Acute on chronic hypoxic and hypercapnic respiratory failure requiring intubation and mechanical ventilation, failed initial BiPAP treatment in the ER. - Patient remains intubated and mechanically ventilated; intensive care service on board - Patient has been started on nutritional support with antral feeding 2. Severe underlying COPD/emphysema; in acute exacerbation - Patient remains on bronchodilator nebulizer therapy along with IV steroids; empiric treatment with IV azithromycin 3. Underlying coronary artery disease; stable at baseline 4. Benign essential hypertension; patient takes Bumex 0.5 mg daily; currently not on any antihypertensive therapy 5. Myoclonic sutures suspicion for seizure - Evaluated by neurologist - currently on Keppra, tapered per neurologist 6. Low vitamin B12 - Continue with oral replacement therapy DVT prophylaxis; SCDs/subcu heparin CODE STATUS; DO NOT RESUSCITATE
--- NOTE | 2022-10-12 11:31 | P.PN ---
Subjective Progress Note Date: 10/12/22 Principal diagnosis: Respiratory failure. Acute on chronic hypoxic and hypercapnic respiratory failure secondary to severe COPD and acute exacerbation This is an 82-year-old white male with known history of severe COPD, O2 dependent, normally on 3 L nasal cannula at home. Patient presents to the ER for evaluation of chronic shortness of breath, and has been getting worse over the last 3 weeks. While in the ER, the patient was developing worsening respiratory failure, and I believe he was given a trial of BiPAP according to the note by the ER physician. Intravenous blood gases done showed a pCO2 of 107 and a pH of 7.26. FEN another ABG was done which was just before the patient was intubated showed a pO2 of 75 pCO2 of more than 120 and a pH of 7.10. Apparently the patient had a sudden deteriorating course while in the ER with worsening hypercapnia. Then another ABG was done post intubation showed a pO2 of 172 pCO2 of 99 pH of 7.30. I was notified about this patient after he was intubated, accepted the patient to the ICU and recommended some changes in the ventilator settings. I saw him this morning, ABG this morning showed a pO2 of 83 pCO2 58 pH of 7.51 and I felt the patient is being hyperventilated I cut down his rate from 22 down to 18. Obviously the patient has a baseline pCO2 most likely in the high 60s or 70s. Patient is now on assist control rate of 18 tidal volume 450 FiO2 35% PEEP of 5 and he is on IV fluid at KVO, it did receive Diamox last night. He had a temp of 102 last night, and we will start enteral feeding via orogastric tube. Chest x-ray showed no evidence of infiltrate, it is mostly consistent with COPD/emphysema. After evaluating the patient this morning went ahead and placed a right IJ triple-lumen cath and a right radial arterial line for monitoring. Looking at the note from the ER physician apparently he discussed the CODE STATUS with the family family agreed to intubation although the patient was DO NOT RESUSCITATE on previous admissions. We need to clarify this CODE STATUS with the family at bedside. Labs today showed WBC count of 2.8 hemoglobin 11.7, basic metabolic profile is normal except for elevated bicarb of 43 renal profile is normal, screening for COVID-19 infection was negative Reevaluated today on 10/09/2022, patient remains in the ICU intubated and mechanically ventilated, he is on assist control rate of 18 tidal volume 450 FiO2 35% PEEP of 5 ABG showed a pO2 of 90 pCO2 66 pH of 7.39, hence the patient was kept on the same vent settings. He is on propofol at 15 mcg/kg/m norepinephrine at 0.02 mcg/kg/m IV fluids 75 mL per hour and is also on vital HPF 10 mL per hour. Patient was awakened, and his weaning parameters were checked, they were borderline, patient was given about an hour trial of pressure support and CPAP, however ABG after 1 hour showed significant rise in his pCO2 up to 85, his pH was 7.28, and his pO2 was 59. Hence I recommended that the patient goes back on mechanical ventilation, and his Nif was only -15. Obviously the patient is not quite ready for weaning and extubation at this point. WBC count is 7.8 hemoglobin is 11.8. Electrolytes are normal bicarb is 37 renal profile is normal. Chest x-ray showed no evidence of acute process, evidence of COPD emphysema and biapical pleural parenchymal scarring noted Progress note dated 10/10/2022. 82-year-old white male who was admitted to the hospital on October 07, with COPD exacerbation. The patient was intubated on the same day. The patient remains on the mechanical ventilator. He is on volume assist control, rate 18, tidal volume 450, FiO2 35%, and PEEP of 5. Arterial blood gases show pO2 of 108, pCO2 59, pH is 7.38. His peak airway pressure is 40. His plateau pressure is 18. This suggests a high amount of airways resistance. The patient's on norepinephrine, which is on hold currently. Propofol at 30 mcg/kg/m, saline at 75 mL an hour, and vital high protein at 25 mL an hour with a goal of 53. White count 5.7, hemoglobin 11.2, hematocrit 34.2, with a normal platelet count. Sod ium 137, potassium 3.4, chlorides 100, CO2 36, BUN 26, and creatinine 0.72. Chest x-ray shows changes primarily of COPD. Nothing acute is noted on chest x- ray. Progress note dated 10/11/2022 82-year-old male who was admitted to the hospital on October 07, for COPD exacerbation. Unfortunately, he developed tiffany respiratory failure, and was intubated on the same day. He seen today in room 264. He failed a spontaneous breathing trial yesterday. He remains on volume assist control, rate 18, tidal volume 450, FiO2 35%, and PEEP of 5. Blood gases show pO2 154, pCO2 of 65, and a pH is 7.34. He remains off of propofol, and saline is running at 75 mL an hour. Tube feedings, which were at goal, are currently on hold. Today we will attempt another spontaneous breathing trial, pressure support of 5, and CPAP of 5. White count 6.9, hemoglobin 11.9, hematocrit 38, platelet count of 232,000. Sodium 140, potassium 4.2, chlorides 102, CO2 36, BUN 32, and creatinine 0.71. Chest x-ray shows bibasilar atelectasis. Unfortunately, the patient failed his weaning trial again today, with blood gases showing a pO2 of 54, down from 154, and a pCO2 of 91, up from 65. Also, the patient developed an acute respiratory acidosis, but the pH dropping to 7.34 down to 7.22. Progress note dated 10/12/2022. 82-year-old male, admitted to the hospital on October 07, for COPD exacerbation. Unfortunately, he developed tiffany respiratory failure, and was intubated on the same day. He is seen again today in room 264. He has failed multiple attempts at spontaneous breathing trials. Currently, he remains on volume assist control, rate 18, tidal volume 450, FiO2 35%, and PEEP of 5. Blood gases show pO2 76, pCO2 69, and pH is 7.31. The patient is a DO NOT RESUSCITATE patient. He failed a spontaneous breathing trial the last 2 days. He's getting propofol at 30 mcg/kg/m, saline at 75 mL an hour, and vital high protein at 53 mL an hour, which is his goal. Apparently, his daughter has some concerns about ongoing breathing trials. We will attempt another one today. If he fails again, which is likely,, we will ask the daughter about comfort measures. She suggested to the nurse, that that's probably the way that he would want to handle it. White count 4.8, hemoglobin 11.7, hematocrit 37.5, and platelet count 289,000. Sodium 140, potassium 4.4, chlorides 102, CO2 37, BUN 39, and creatinine 0.76. Chest x-ray is unchanged, and shows changes of COPD. Objective - Vital Signs Vital signs: Vital Signs Temp 98.8 F 10/12/22 08:00 Pulse 100 10/12/22 11:07 Resp 15 10/12/22 11:07 BP 101/55 10/12/22 10:30 Pulse Ox 95 10/12/22 10:30 FiO2 35 10/12/22 10:55 Intake & Output 10/11/22 10/12/22 10/12/22 18:59 06:59 18:59 Intake Total 1645 2132.908 579.376 Output Total 550 532 115 Balance 1095 1600.908 464.376 Weight 77.3 kg Intake: IV 900 1125 225 Sodium Chloride 0.9% 1, 900 1125 225 000 ml @ 75 mls/hr IV . [id number] [facility] Rx#:[id number] Intake, IV Titration 100 152.908 165.376 Amount levETIRAcetam IV 500 mg 100 In Sodium Chloride 0.9% 100 ml @ 400 mls/hr IVPB DAILY [facility] Rx#:[id number] propofoL 1,000 mg In 100 152.908 65.376 Empty Bag 1 bag @ 15 MCG/ KG/MIN 6.736 mls/hr IV . [id number] R[facility] Rx#:[id number] Tube Feeding 555 795 159 Other 90 60 30 Output: Urine 550 532 115 ABP, PAP, CO, CI - Last Documented Arterial Blood Pressure 125/46 - Exam No acute distress, off sedation, looks awake and alert, with an orally placed endotracheal tube. HEENT examination is grossly unremarkable. Neck supple. Full range of motion. No adenopathy thyromegaly or neck vein distention. Cardiovascular examination reveals regular rhythm rate. S1-S2 normal. No S3 or S4. No discernible murmur noted. Heart sounds are distant. Heart rate 100 bpm. Lungs reveal scattered bilateral expiratory wheezes and rhonchi. Breath sounds are equal. No crackles. Saturations are 95 %. Abdomen soft, without bowel sounds. No masses. Extremities are intact. No cyanosis clubbing or edema. Skin is without rash or lesion. Neurologic examination appears normal. - Labs CBC & Chem 7: 10/12/22 05:20 10/12/22 05:20 Labs: Abnormal Lab Results - Last 24 Hours (Table) 10/11/22 10/11/22 10/11/22 Range/Units 12:04 18:10 23:50 RBC (4.30-5.90) m/uL Hgb (13.0-17.5) gm/dL Hct (39.0-53.0) % MCV (80.0-100.0) fL Lymphocytes # (1.0-4.8) k/uL ABG pH (7.35-7.45) ABG pCO2 (35-45) mmHg ABG pO2 (83-108) mmHg ABG HCO3 (21-25) mmol/L ABG Total CO2 (19-24) mmol/L Carbon Dioxide (22-30) mmol/L BUN (9-20) mg/dL Glucose (74-99) mg/dL POC Glucose (mg/dL) 121 H 158 H 152 H (70-110) mg/dL Calcium (8.4-10.2) mg/dL 10/12/22 10/12/22 10/12/22 Range/Units 05:20 05:20 05:51 RBC 3.74 L (4.30-5.90) m/uL Hgb 11.7 L (13.0-17.5) gm/dL Hct 37.5 L (39.0-53.0) % MCV 100.3 H (80.0-100.0) fL Lymphocytes # 0.2 L (1.0-4.8) k/uL ABG pH 7.31 L (7.35-7.45) ABG pCO2 69 H (35-45) mmHg ABG pO2 76 L (83-108) mmHg ABG HCO3 35 H (21-25) mmol/L ABG Total CO2 37 H (19-24) mmol/L Carbon Dioxide 37 H (22-30) mmol/L BUN 39 H (9-20) mg/dL Glucose 167 H (74-99) mg/dL POC Glucose (mg/dL) (70-110) mg/dL Calcium 8.1 L (8.4-10.2) mg/dL Assessment and Plan Assessment: Acute on chronic hypoxemic and hypercapnic respiratory failure, requiring intubation and mechanical ventilation on October 07. Failure to wean from mechanical ventilation. Severe underlying COPD/emphysema. CAD. Hypertension. Plan: Plan dated 10/10/2022. The patient has a peak airway pressure 40 cm water, and a plateau pressure of 18 cm the largest difference in the peak and plateau suggest significant airways resistance. This probably relates to the patient's underlying COPD, with bronchospasm. Labs, x-rays, medications are reviewed. We will continue to follow. Prognosis is guarded. The patient continues on albuterol, ipratropium bromide, budesonide, and formoterol, as well as Solu-Medrol. Prognosis is certainly guarded. Plan dated 10/11/2022. Today's respiratory mechanics show improvement. The difference between the peak airway pressure, and a plateau pressure, has narrowed, suggesting a reduction in airways resistance. I forcefully, the patient was placed on pressure support of 5, and CPAP of 5, and failed his weaning trial. He'll be re-sedated, and placed back on the mechanical ventilator. Labs, x-rays, medications are reviewed. Prognosis remains guarded. We will continue to follow make recommendations along the way. The patient may in the long run, require tracheostomy and PEG tube placement, if he does not get extubated. Plan dated 10/12/2022. The patient will have another attempt of a spontaneous breathing trial. We will hold his propofol. Labs, x-rays, and medications are reviewed. The patient has miserably failed 2 previous attempts had a spontaneous breathing trial, demonstr ating significant drops in his PaO2, and significant elevations in his PaCO2. Apparently, his daughter would not want him to have a tracheostomy tube, and, may not want him to have any additional weaning trials, after today. I will have the nurse call her with the result of the weaning trial today, additional recommendations and suggestions are forthcoming. Time with Patient: Greater than 30
[2022-10-12 11:41] VITALS: RESP 18
[2022-10-12 11:49] VITALS: BMI 21.9
[2022-10-12 11:51] LABS: Glucose,Whole Blood 171 mg/dL (70-110)
[2022-10-12 12:11] VITALS: TEMP 98.2
[2022-10-12] MEDS: NOREPINEPHRINE 32 MG in SODIUM CHLORIDE 0.9% 218 ML IV SCH (13:12)
[2022-10-12 15:01] VITALS: PULSE 79
[2022-10-12] MEDS ORDERED: LORazepam 2 MG/ML INJ IV PRN (15:08)
[2022-10-12] MEDS ORDERED: MORPHINE SULFATE 2 MG/ML SYRINGE IV PRN (15:08)
[2022-10-12] MEDS ORDERED: ATROPINE OPHTH SOLN 1% 5ML BTL SUBLINGUAL PRN (15:08)
[2022-10-12] MEDS ORDERED: MORPHINE SULFATE 4 MG/ML SYRINGE IV PRN (15:08)
[2022-10-12] MEDS ORDERED: SCOPOLAMINE 1 MG/72 HR PATCH TRANSDERM SCH (15:15)
[2022-10-12] MEDS ORDERED: MORPHINE SULFATE (100 MG/2 ML) 100 MG in SODIUM CHLORIDE 0.9% 100 ML IV SCH (15:15)
--- NOTE | 2022-10-13 11:11 | P.PN ---
Subjective Progress Note Date: 10/12/22 10/12/2022: Patient was seen for a follow-up. Patient currently sedated with propofol 35 mcg/kg/m. Per nursing report, with sedation holiday, patient wakes up and follows commands. They have tried extubation, but unsuccessful, as patient starts retaining CO2. Patient has COPD. 10/11/2022: Patient was seen for a follow-up. Patient currently on propofol 35 g per program per minute. Per nursing report, with sedation holiday, patient was quite alert awake following all directions. He denied any headache. However patient's respiratory status still poor, as he started desaturating therefore placed back on ventilator and sedation. 10/10/2022: Patient initially seen by Dr. Raul Rodas. Please refer to his note for details. Patient is a 82-year-old male with worsening COPD. He has tremors and Dr. Rodas feels it more like metabolic tremors from hypercapnia. EEG was negative for seizure. Patient does have transient fever that has resolved. No clinical evidence of meningitis or encephalitis. Per nursing report, today patient underwent CPAP trial. Sedation was discontinued for about 40 minutes. He was following all commands. At present patient back on propofol 30 mcg/kg/m. Patient is still following directions. Patient denies headache. Some of the workup during his hospital visit consisted of: Carbon dioxide is 50 on presentation, chlorides 87, initial serum glucose is 107. The calcium, magnesium, AST and ALT is within normal limits Lainez virus is not detected Folate is 24.7 Vitamin B12 is 241 within normal supposed to be between 200-944. TSH is 0.828 Ammonia level is 15. Initial ABG is the pH of 7.1, pCO2 is more than 120, oxygen is 75 and the oxygen saturation is 92. FiO2 is 50%. CT of the head is reported as ethmoid and left sided maxillary sinusitis. No acute intracranial abnormality. Chest x-ray is reported as COPD changes with the patchy right mid lung airspace opacity which may represent infiltrate versus atelectasis/scarring. Routine EEG is abnormal. The back also suggestive of moderate encephalopathy likely due to toxic metabolic derangement. Otherwise there is no focal slowing, epileptiform discharges or seizure on the EEG. Objective - Vital Signs Vital signs: Vital Signs Temp 98.8 F 10/12/22 08:00 Pulse 96 10/12/22 11:30 Resp 18 10/12/22 11:30 BP 101/55 10/12/22 10:30 Pulse Ox 96 10/12/22 11:30 FiO2 35 10/12/22 12:00 Intake & Output 10/11/22 10/12/22 10/12/22 18:59 06:59 18:59 Intake Total 1645 2132.908 993.376 Output Total 550 532 260 Balance 1095 1600.908 733.376 Weight 77.3 kg 77.3 kg Intake: IV 900 1125 450 Sodium Chloride 0.9% 1, 900 1125 450 000 ml @ 75 mls/hr IV . [id number] [facility] Rx#:[id number] Intake, IV Titration 100 152.908 165.376 Amount levETIRAcetam IV 500 mg 100 In Sodium Chloride 0.9% 100 ml @ 400 mls/hr IVPB DAILY [facility] Rx#:[id number] propofoL 1,000 mg In 100 152.908 65.376 Empty Bag 1 bag @ 15 MCG/ KG/MIN 6.736 mls/hr IV . [id number] [facility] Rx#:[id number] Tube Feeding 555 795 318 Other 90 60 60 Output: Urine 550 532 260 ABP, PAP, CO, CI - Last Documented Arterial Blood Pressure 122/49 - Exam Patient is intubated, sedated. Patient is sedated with propofol 35 mcg/kg/m. detail examination deferred, as per nursing report, patient was neurologically stable with sedation holiday earlier. Pupils are equal, round and reacting. Tone is equal bilaterally. No myoclonic jerks noted at this time. - Labs CBC & Chem 7: 10/12/22 05:20 10/12/22 05:20 Labs: Abnormal Lab Results - Last 24 Hours (Table) 10/11/22 10/11/22 10/12/22 Range/Units 18:10 23:50 05:20 RBC 3.74 L (4.30-5.90) m/uL Hgb 11.7 L (13.0-17.5) gm/dL Hct 37.5 L (39.0-53.0) % MCV 100.3 H (80.0-100.0) fL Lymphocytes # 0.2 L (1.0-4.8) k/uL ABG pH (7.35-7.45) ABG pCO2 (35-45) mmHg ABG pO2 (83-108) mmHg ABG HCO3 (21-25) mmol/L ABG Total CO2 (19-24) mmol/L Carbon Dioxide (22-30) mmol/L BUN (9-20) mg/dL Glucose (74-99) mg/dL POC Glucose (mg/dL) 158 H 152 H (70-110) mg/dL Calcium (8.4-10.2) mg/dL 10/12/22 10/12/22 10/12/22 Range/Units 05:20 05:51 11:49 RBC (4.30-5.90) m/uL Hgb (13.0-17.5) gm/dL Hct (39.0-53.0) % MCV (80.0-100.0) fL Lymphocytes # (1.0-4.8) k/uL ABG pH 7.31 L (7.35-7.45) ABG pCO2 69 H (35-45) mmHg ABG pO2 76 L (83-108) mmHg ABG HCO3 35 H (21-25) mmol/L ABG Total CO2 37 H (19-24) mmol/L Carbon Dioxide 37 H (22-30) mmol/L BUN 39 H (9-20) mg/dL Glucose 167 H (74-99) mg/dL POC Glucose (mg/dL) 171 H (70-110) mg/dL Calcium 8.1 L (8.4-10.2) mg/dL Assessment and Plan Assessment: This is a 82-year-old gentleman with history of COPD that's been having shortness of breath with a past 2-3 weeks. Tremor/jerking of extremities seems more myoclonic jerk due to hypercapnia---improved. No seizure on EEG. Altered mental status due to hypercapnic and hypoxic encephalopathy. Also medication effect (Propofol)--improved. Patient denies headache. No evidence of intracranial infection. Very low normal Vitamin B12 (241) Acute COPD exacerbation. History of COPD on oxygen at home Plan: Dr. Rodas has recommended to decrease Keppra from 750mg bid to 500mg bid (since no seizure on EEG) and clinically does not appear seizure. He further recommended to continue to taper keppra until off since unlikely seizure during this admission. I agree with the plan. Decrease Keppra to 500 mg once daily for 2 days and then stop. Patient doing well with tapering down Keppra. Patient's examination is nonfocal and he responds appropriately during sedation holiday. Denies headache. For his low normal Vitamin B12, started on Vitamin B12 1000mcg IM for two days then PO after that. We'll defer the rest of the medical measure the primary team
--- NOTE | 2022-10-13 15:35 | CDI ---
Documentation Clarification Form Date: 10/13/2022 3:10:32 PM From: Tanna Burroughs Admit Date: 10/07/2022 6:35:00 PM Patient Name: Jason Chavez Visit Number: [id number] Discharge Date: 10/12/2022 6:42:00 PM ATTENTION: The Clinical Documentation Specialists (CDI) and [facility] Coding Staff appreciate your assistance in clarifying documentation. Please respond to the clarification below the line at the bottom and electronically sign. The CDI & [facility] Coding staff will review the response and follow-up if needed. Please note: Queries are made part of the Legal Health Record. If you have any questions, please contact the author of this message via ITS. Dr. Yury Kennedy Patient is an 82 year old male. 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 Patient is dependent on home oxygen, placed on Bipap in the ED, and ultimately required intubation and ventilation. Multiple trials were performed during the stay to wean patient off the ventilator; however, they failed. Per your discharge summary, family decided to place patient on comfort measures due to lack of improvement despite treatment. Patient eventually . Please provide a Cause of /preliminary cause of . Cause of death MTDD
== END 2022-10-12 18:42 | disposition expired | DRG 207 ==
LOC: EC 14:17 → 3SCARD 18:35 → 2SICU 19:41
PROVIDERS: ADMIT Hospitalist; ATTEND Hospitalist
PROC: 5A09357 Assistance with Respiratory Ventilation, Less than 24 Consecutive Hours, Continuous Positive Airway Pressure (ICD-10-PCS; principal; 2022-10-07)
PROC: 5A1955Z Respiratory Ventilation, Greater than 96 Consecutive Hours (ICD-10-PCS; principal; 2022-10-07)
PROC: 0D9670Z Drainage of Stomach with Drainage Device, Via Natural or Artificial Opening (ICD-10-PCS; principal; 2022-10-07)
PROC: 0BH17EZ Insertion of Endotracheal Airway into Trachea, Via Natural or Artificial Opening (ICD-10-PCS; principal; 2022-10-07)
PROC: 02HV33Z Insertion of Infusion Device into Superior Vena Cava, Percutaneous Approach (ICD-10-PCS; 2022-10-08)
PROC: 4A133B1 Monitoring of Arterial Pressure, Peripheral, Percutaneous Approach (ICD-10-PCS; 2022-10-08)
PROC: 3E043XZ Introduction of Vasopressor into Central Vein, Percutaneous Approach (ICD-10-PCS; 2022-10-08)
PROC: 03HY32Z Insertion of Monitoring Device into Upper Artery, Percutaneous Approach (ICD-10-PCS; 2022-10-08)
PROC: 4A133J1 Monitoring of Arterial Pulse, Peripheral, Percutaneous Approach (ICD-10-PCS; 2022-10-08)
PROC: 3E0G76Z Introduction of Nutritional Substance into Upper GI, Via Natural or Artificial Opening (ICD-10-PCS; 2022-10-09)
DX: J96.21 Acute and chronic respiratory failure with hypoxia (principal); G92.8 Other toxic encephalopathy; J98.11 Atelectasis; G93.1 Anoxic brain damage, not elsewhere classified; J96.22 Acute and chronic respiratory failure with hypercapnia; J43.9 Emphysema, unspecified; G25.3 Myoclonus; T41.295A Adverse effect of other general anesthetics, initial encounter; I25.10 Atherosclerotic heart disease of native coronary artery without angina pectoris; Z66 Do not resuscitate; I50.9 Heart failure, unspecified; J32.0 Chronic maxillary sinusitis; J32.2 Chronic ethmoidal sinusitis; Z20.822 Contact with and (suspected) exposure to COVID-19; I11.0 Hypertensive heart disease with heart failure; Z99.81 Dependence on supplemental oxygen; Z88.1 Allergy status to other antibiotic agents; Z51.5 Encounter for palliative care
CPT/HCPCS: 31500; 36415; 36600; 70450; 71045; 74018; 80048; 80053; 82140; 82607; 82746; 82803; 82805; 83605; 83735; 83880; 84132; 84443; 84484; 85025; 85027; 85379; 85610; 85730; 87070; 87205; 87635; 93005; 94002; 94003; 94640; 94660; 95822; 96374; 96375; 99291